=== PATIENT | female | born 1980 | race Hispanic/Latino ===

== ENCOUNTER 2016-04-29 13:38 | Emergency (ER) | payer OTHER ==
[~2016-04-29] VITALS: Ht 152.4 cm; Wt 65.8 kg
[~2016-04-29 13:38] MED LIST: BENTYL10 MG PO; FIORICET 300 MG1 CAP PO; IBUPROFEN800 M1 PO; NAPROXEN500 MG PO; PROAIR HFA8.5 GM INH; ROBITUSSIN W/CO10 ML PO; TESSALON PERLE100 MG PO; ZOFRAN4 M1 SL
--- NOTE | 2016-04-29 14:07 | ED GENERAL ADULT ---
History of Present Illness General Chief Complaint: Neck/Upper Back Pain/Injury Stated Complaint: NECK AND EAR PAIN Source: patient Exam Limitations: no limitations Vital Signs & Intake/Output Vital Signs & Intake/Output Vital Signs Date Time Temp Pulse Resp B/P Pulse O2 O2 Flow FiO2 Ox Delivery Rate 04/29 1736 99.2 80 16 107/55 98 Room Air 04/29 1345 97.7 102 20 127/83 99 Room Air ED Intake and Output 04/30 0000 04/29 1200 Intake Total 0 Output Total Balance 0 Intake, Oral 0 Patient 145 lb Weight Allergies Coded Allergies: Iodinated Contrast Media - Oral and (Severe, ANAPHYLAXIS 04/29/16) iodine (Severe, ANAPHYLAXIS 04/29/16) shellfish derived (Severe, ANAPHYLAXIS 04/29/16) Reconcile Medications Albuterol Sulfate (Albuterol Sulfate Hfa) 0.09 MG/Actuation BHAVESH 2 PUFF INH PRN ASTHMA (Reported) 90 MCG PER PUFF Amoxicillin/Potassium Clav (Augmentin 875-125 Tablet) 875 MG-125 MG TABLET 1 TAB PO BID SINUSITIS Budesonide/Formoterol Fumarate (Symbicort 160-4.5 Mcg Inhaler) 160 MCG-4.5 MCG/ ACTUATION HFA.AER.AD 2 PUF INH BID BREATHING PROBLEMS (Reported) BUTALB/ACETAMINOPHEN/CAFFEINE (Fioricet 50-300-40 MG Capsule) 1 CAP CAP 1 TAB PO TID PRN HEADACHE Cyclobenzaprine HCl 5 MG TABLET 1 TAB PO TID PRN MUSCLE RELAXANT MAY CAUSE DROWSINESS Famotidine 40 MG TABLET 1 TAB PO DAILY GI (Reported) Ibuprofen 800 MG TAB 1 TAB PO PRN PAIN (Reported) Methylprednisolone. (Medrol) 4 MG TAB.DS.PK 1 DP PO AD INFLAMMATION Montelukast Sodium 10 MG TABLET 1 TAB PO DAILY ALLERGIES (Reported) Pantoprazole Sodium 40 MG TABLET.DR 1 TAB PO DAILY GI (Reported) Topiramate 25 MG TABLET 1 TAB PO BID UNKNOWN (Reported) Triage Note: PT TO ED C/O NECK PAIN X 1 WEEK. DENIES INJURY. PT STATES YESTERDAY HER LEFT EAR STARTED TO HURT. UNSURE IF THEY ARE RELATED. HAS BEEN TAKING MOTRIN AND NAPROXEN FOR HER NECK. Triage Nurses Notes Reviewed? yes : No Patient currently breastfeeds: No HPI: Patient is a 36 year old female presents complaining of neck pain, progressively worsening x 6 days. Patient awoke with a sensation of neck stiffness 6 days ago , and a feeling of her head being too heavy for her neck. Using a heating pad, ibuprofen and naproxen. Finds mild 2 hour relief with naproxen. Started kick boxing 2 days ago. Associated nasal congestion with clear rhinorrhea. Left ear pain x 2 days. Left sided migraine, similar to previous headaches, no improvement with her topamax or excedrin. Increased fatigue. Positive sick contact, father with influenza and pneumonia 1.5 weeks ago. Vomiting and diarrhea 2-3 days ago that has resolved. Denies fevers, visual changes, recent travel. (SUBHASH BENJAMIN) Past History Travel History Traveled to [place] past 21 day No Medical History Any Pertinent Medical History? 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 No (SUBHASH BENJAMIN) Review of Systems Review of Systems Constitutional: Denies: chills, fever. EENTM: Reports: ear pain, nasal congestion. Denies: throat pain. Respiratory: Denies: cough, short of breath. Cardiovascular: Denies: chest pain. GI: Denies: abdominal pain, nausea, vomiting. Genitourinary: Reports: no symptoms. Musculoskeletal: Denies: back pain, neck pain. Skin: Reports: no symptoms. Neurological/Psychological: Reports: headache (consistent with previous MOORE). Denies: numbness. Hematologic/Endocrine: Denies: bruising, bleeding. Immunologic/Allergic: Denies: splenectomy. (SUBHASH BENJAMIN) Physical Exam Physical Exam General Appearance: well developed/nourished, alert, awake Head: LEFT MAXILLARY SINUS TENDERNESS Eyes: Bilateral: normal appearance, PERRL, EOMI. Ears, Nose, Throat: nasal congestion, CLEAR FLUID POSTERIOR TO BILATERAL TYMPANIC MEMBRANES. nO ERYTHEMA TO THE TYMPANIC MEMBRANES. eXTERNAL AUDITORY CANALS NORMAL. Neck: normal inspection, supple, full range of motion, LEFT PARASPINAL TENDERNESS. lEFT SUBMANDIBULAR LYMPHADENOPATHY Respiratory: normal breath sounds, chest non-tender, no respiratory distress, lungs clear Cardiovascular: regular rate/rhythm Peripheral Pulses: 2+ radial (L) Gastrointestinal: soft, non-tender Back: normal inspection, normal range of motion, no vertebral tenderness Extremities: normal inspection, normal capillary refill, normal range of motion, no edema Neurologic/Psych: no motor/sensory deficits, awake, alert, oriented x 3, normal gait, normal mood/affect Skin: intact, normal color, warm/dry Core Measures ACS in differential dx? No CVA/TIA Diagnosis: No Severe Sepsis Present: No Septic Shock Present: No (SUBHASH BENJAMIN) Progress Differential Diagnoses I considered the following diagnoses in my evaluation of the patient: Migraine, otitis media, otitis externa, abscess, cervical strain, meningitis, sinusitis Plan of Care: Orders Procedure Date/time Status HUMAN BETA HCG SCREEN 04/29 143 Complete COMPREHENSIVE METABOLIC PANEL 04/29 143 Complete CBC WITHOUT DIFFERENTIAL 04/29 143 Complete Laboratory Tests 04/29/16 1430: Anion Gap 14, Estimated GFR > 60, BUN/Creatinine Ratio 27.1 H, Glucose 98, Calcium 8.8, Total Bilirubin 0.4, AST 12 L, ALT 24, Alkaline Phosphatase 59, Total Protein 7.4, Albumin 3.9, Globulin 3.5, Albumin/Globulin Ratio 1.1, Total Beta HCG NEGATIVE, CBC w Diff MAN DIFF ORDERED, RBC 5.40, MCV 62.7 L, MCH 19.3 L, RDW 20.1 H, MPV 9.5, Gran % 49.3, Lymphocytes % 34.6, Monocytes % 9.4 H, Eosinophils % 5.2 H, Basophils % 1.5, Absolute Granulocytes 4.9, Absolute Lymphocytes 3.4, Absolute Monocytes 0.9 H, Absolute Eosinophils 0.5, Absolute Basophils 0.1, Platelet Estimate ADEQUATE, Hypochromic-Microcytic 2+, Poikilocytosis 2+, Anisocytosis 1+, Microcytic Cells 2+, Ovalocytes 1+, PUBS MCHC 30.8 L Results of labs and imaging discussed with patient. Patient nontoxic appearing, no meningeal signs on exam. Appears stable for discharge, patient instructed to follow up closely with her primary care provider for further evaluation. (SUBHASH BENJAMIN) Diagnostic Imaging: Viewed by Me: CT Scan. Discussed w/RAD: CT Scan. Radiology Impression: PATIENT: PRIYA HERNDON PRESENT AGE: 36 PATIENT ACCOUNT NO: [id number] : 81 LOCATION: [facility] ORDERING PHYSICIAN: SUBHASH HERNANDEZ SERVICE DATE: 04/29/16-1430 EXAM TYPE: CAT - CT NECK W IV CONTRAST EXAMINATION: CT NECK WITH CONTRAST CLINICAL INFORMATION: Left-sided neck pain. Left submandibular adenopathy. COMPARISON: None. TECHNIQUE: Multidetector helical imaging was performed in the axial plane with generation of reformatted acquisitions. The patient received 60 mL of Optiray 320 intravenously. DLP: 540.8 mGy-cm. FINDINGS: No contour abnormality or pathologic enhancement is seen within the pharyngeal mucosal space or oral cavity. The larynx is normal. The submandibular glands and parotid glands are homogeneous in attenuation. No sialoliths are seen. No abnormal periodontal or periapical lucencies are seen in the maxillary or mandibular dentition. There is no cervical adenopathy. No soft tissue fluid collections are seen. There is no abnormal retropharyngeal fluid. The carotid sheath vasculature opacifies normally. A few subcentimeter low density nodules are noted within the thyroid gland, measuring up to 0.4 cm in diameter. The imaged portions of the brain parenchyma are unremarkable. The imaged mediastinum is normal. The visualized lungs are clear. No acute osseous abnormality is seen. Posterior endplate spurring is noted with a small central disc protrusion at C5-C6. There is a moderate rightward nasal septal deviation. The paranasal sinuses and mastoid air cells are aerated. The TMJs are normal. IMPRESSION: No acute abnormality. No soft tissue inflammatory changes or pathologic enhancement. No cervical adenopathy. Scattered small thyroid nodules. Incidental small central disc protrusion with mild endplate spurring at C5-C6. DICTATED BY: JAX ALLEN MD DATE/TIME DICTATED:04/29/161726 MACHINE ACCOUNTANT:REECE DATE/TIME TRANSCRIBED:04/29/161726 CONFIDENTIAL, DO NOT COPY WITHOUT APPROPRIATE AUTHORIZATION. <Electronically signed in Other Vendor System> SIGNED BY: JAX ALLEN MD 04/29/16 1738 Initial ED EKG: none (SUBHASH BENJAMIN) Departure Departure Time of Disposition: 1742 Disposition: HOME OR SELF CARE Condition: Stable Clinical Impression Primary Impression: Sinusitis Qualifiers: Sinusitis location: unspecified location Chronicity: acute Recurrence: not specified as recurrent Qualified Code: J01.90 - Acute sinusitis, unspecified Secondary Impressions: Cervical strain, acute Qualifiers: Encounter type: initial encounter Qualified Code: S16.1XXA - Strain of muscle, fascia and tendon at neck level, initial encounter Referrals: CAROLINE PEREZ,CONSTANCE De Los Santos (PCP/Family) Additional Instructions: Follow-up with your primary doctor within 1 week for further evaluation. Return to the emergency department if numbness, weakness, fevers, or worsening of symptoms. Departure Forms: Customer Survey General Discharge Information Prescriptions: Current Visit Scripts Amoxicillin/Potassium Clav (Augmentin 875-125 Tablet) 1 TAB PO BID #20 TAB Methylprednisolone. (Medrol) 1 DP PO AD #1 DP Cyclobenzaprine HCl 1 TAB PO TID PRN MUSCLE RELAXANT #30 TAB MAY CAUSE DROWSINESS (SUBHASH BENJAMIN) PA/ATM MANAGER Co-Sign Statement Statement: ED Attending supervision documentation- [X] I saw and evaluated the patient. I have also reviewed all the pertinent lab results and diagnostic results. I agree with the findings and the plan of care as documented in the PA's/ATM MANAGER's documentation. [X] I have reviewed the ED Record and agree with the PA's/ATM MANAGER's documentation. [] Additions or exceptions (if any) to the PAs/ATM MANAGER's note and plan are summarized below: [] (ALOK PEREZ,CORRINE) Critical Care Note Critical Care Note Critical Care Time: non-applicable (SUBHASH BENJAMIN)
[2016-04-29] MEDS ORDERED: FAMOTIDINE40 M1 PO (14:45)
[2016-04-29] MEDS ORDERED: PANTOPRAZOLE SO40 M1 PO (14:46)
[2016-04-29] MEDS ORDERED: SYMBICORT 16010.2 GM INH (14:46)
[2016-04-29] MEDS ORDERED: MONTELUKAST SOD10 M1 PO (14:46)
[2016-04-29] MEDS ORDERED: TOPIRAMATE25 M2 PO (14:47)
[2016-04-29 14:51] LABS: ABSOLUTE BASOPHIL COUNT 0.1 /CUMM (0.0-0.2); ABSOLUTE EOSINOPHIL COUNT 0.5 /CUMM (0.0-0.7); ABSOLUTE GRANULOCYTE CT 4.9 /CUMM (1.4-6.5); ABSOLUTE LYMPH COUNT 3.4 /CUMM (1.2-3.4); ABSOLUTE MONOCYTE COUNT 0.9 /CUMM (0.10-0.60); BASOPHIL % 1.5 % (0.0-2.0); EOSINOPHIL % 5.2 % (0-5); GRANULOCYTE % 49.3 % (42.2-75.2); HEMATOCRIT 33.9 % (37-47); MEAN CORPUSCULAR HGB 19.3 PG (27.0-31.0); MEAN CORPUSCULAR HGB CONC 30.8 G/DL (33.0-37.0); MEAN CORPUSCULAR VOLUME 62.7 FL (81.0-99.0); MEAN PLATELET VOLUME 9.5 FL (7.4-10.4); PLATELET COUNT 196 /CUMM (130-400); RBC DISTRIBUTION WIDTH 20.1 % (11.5-14.5); WHITE BLOOD CELL COUNT 9.9 /CUMM (4.8-10.8)
[2016-04-29 17:36] VITALS: BP 107/55
--- NOTE | 2016-04-29 17:38 | CT SCAN REPORT ---
EXAMINATION: CT NECK WITH CONTRAST CLINICAL INFORMATION: Left-sided neck pain. Left submandibular adenopathy. COMPARISON: None. TECHNIQUE: Multidetector helical imaging was performed in the axial plane with generation of reformatted acquisitions. The patient received 60 mL of Optiray 320 intravenously. DLP: 540.8 mGy-cm. FINDINGS: No contour abnormality or pathologic enhancement is seen within the pharyngeal mucosal space or oral cavity. The larynx is normal. The submandibular glands and parotid glands are homogeneous in attenuation. No sialoliths are seen. No abnormal periodontal or periapical lucencies are seen in the maxillary or mandibular dentition. There is no cervical adenopathy. No soft tissue fluid collections are seen. There is no abnormal retropharyngeal fluid. The carotid sheath vasculature opacifies normally. A few subcentimeter low density nodules are noted within the thyroid gland, measuring up to 0.4 cm in diameter. The imaged portions of the brain parenchyma are unremarkable. The imaged mediastinum is normal. The visualized lungs are clear. No acute osseous abnormality is seen. Posterior endplate spurring is noted with a small central disc protrusion at C5-C6. There is a moderate rightward nasal septal deviation. The paranasal sinuses and mastoid air cells are aerated. The TMJs are normal. IMPRESSION: No acute abnormality. No soft tissue inflammatory changes or pathologic enhancement. No cervical adenopathy. Scattered small thyroid nodules. Incidental small central disc protrusion with mild endplate spurring at C5-C6.
[2016-04-29] MEDS ORDERED: CYCLOBENZAPRINE5 M2 PO (17:46)
[2016-04-29] MEDS ORDERED: AUGMENTIN 875-1 EACH PO (17:46)
[2016-04-29] MEDS ORDERED: MEDROL4 M2 PO (17:46)
== END 2016-04-29 18:00 ==
LOC: ERH 13:38
PROVIDERS: Physician Assistant
DX: S16.1XXA Strain of muscle, fascia and tendon at neck level, initial encounter (principal); J32.9 Chronic sinusitis, unspecified
CPT/HCPCS: 96374; J1200

== ENCOUNTER 2016-06-09 17:51 | Emergency (ER) | payer OTHER ==
[~2016-06-09] VITALS: Ht 152.4 cm; Wt 67.1 kg
[~2016-06-09 17:51] MED LIST changes: +AUGMENTIN 875-1 EACH PO; +CYCLOBENZAPRINE5 M2 PO; +FAMOTIDINE40 M1 PO; +MEDROL4 M2 PO; +MONTELUKAST SOD10 M1 PO; +PANTOPRAZOLE SO40 M1 PO; +SYMBICORT 16010.2 GM INH; +TOPIRAMATE25 M2 PO
--- NOTE | 2016-06-09 18:10 | ED DYSPNEA/ASTHMA COMPLAINT ---
History of Present Illness General Chief Complaint: Wheezing/Asthma Stated Complaint: ASTHMA ATTACK, WHEEZING Source: patient, old records Exam Limitations: no limitations Vital Signs & Intake/Output Vital Signs & Intake/Output Vital Signs Date Time Temp Pulse Resp B/P Pulse O2 O2 Flow FiO2 Ox Delivery Rate 06/09 2035 98.0 91 18 127/83 97 Room Air 06/09 1900 97 Room Air Room Air 06/09 1855 97.8 100 20 128/90 96 Room Air 06/09 1756 99.4 120 22 131/87 97 Room Air ED Intake and Output 06/10 0000 06/09 1200 Intake Total 100 Output Total Balance 100 Intake, IV 100 Patient 148 lb Weight Allergies Coded Allergies: Iodinated Contrast Media - Oral and (Severe, ANAPHYLAXIS 04/29/16) iodine (Severe, ANAPHYLAXIS 04/29/16) shellfish derived (Severe, ANAPHYLAXIS 04/29/16) Triage Note: PT TO TRIAGE WITH C/O DIFFICULTY BREATHIG SINCE YESTERDAY. HX OF ASTHMA. PT HAS BEEN USING HER INHALER AND NEBULIZER WITH NO RELIEF. EXP WHEEZING ON AUSCULTATION, O2SAT 97% ON RA. PT AMB TO ROOM 6. Triage Nurses Notes Reviewed? yes Onset: Abrupt Duration: week(s): (1), constant, getting worse Timing: recent history Severity: moderate, severe Activities at Onset: none Prior Episodes/Possible Cause: frequent episodes Modifying Factors: Improves With: rest. Worsens With: movement. Associated Symptoms: cough : No Patient currently breastfeeds: No HPI: 36-year-old female with history of asthma presents to emergency room complaining of a initially nonproductive now productive cough associated with progressively worsening wheezing despite using her nebulizer and inhalers multiple times for other day. Patient recently got over a course of bronchitis and finished prednisone last month. She denies any nausea vomiting fevers or chills. She states that these symptoms that brought her in today having going on for the past week getting progressively worse no chest pain. She states her shortness of breath however is worse with lying flat and exertion. No leg swelling, no recent immobility. She has been admitted to the hospital in the past for her asthma she does not smoke. There are no other modifying factors or associated symptoms otherwise (SANJAY HERNANDEZ,MAHESH) Reconcile Medications Albuterol Sulfate (Proair Hfa) 90 MCG HFA.AER.AD 2 PUF INH PRN ASTHMA ( Reported) Azithromycin (Zithromax) 250 MG TABLET 1 DP PO AD bronchitis 2 the first day followed by 1 for days 2-5 Budesonide/Formoterol Fumarate (Symbicort 160-4.5 Mcg Inhaler) 160 MCG-4.5 MCG/ ACTUATION HFA.AER.AD 2 PUF INH BID BREATHING PROBLEMS (Reported) Butalb/Acetaminophen/Caffeine (Fioricet 50-300-40 MG Capsule) 50 MG-300 MG-40 MG CAPSULE 1 CAP PO PRN MIGRAINE (Reported) Butalb/Acetaminophen/Caffeine (Fioricet 50-300-40 MG Capsule) 50 MG-300 MG-40 MG CAPSULE 1 TAB PO Q6HR PRN HEADACHE Famotidine 40 MG TABLET 1 TAB PO DAILY GI (Reported) Ibuprofen 800 MG TABLET 1 TAB PO PRN PAIN/INFLAMMATION (Reported) Methylprednisolone. (Medrol) 4 MG TAB.DS.PK 1 DP PO AD asthma 6 on day 1 then reduce by one tablet daily until gone Montelukast Sodium 10 MG TABLET 1 TAB PO DAILY ALLERGIES (Reported) Pantoprazole Sodium 40 MG TABLET.DR 1 TAB PO DAILY GI (Reported) Topiramate 25 MG TABLET 1 TAB PO BID UNKNOWN (Reported) (ALOK PEREZ,CORRINE) Past History Travel History Traveled to [place] past 21 day No Medical History Any Pertinent Medical History? 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 No (SANJAY HERNANDEZ,MAHESH) Review of Systems Review of Systems Constitutional: Reports: see HPI. All Other Systems: Reviewed and Negative Comments Review of systems: See HPI, All other systems negative. Constitutional, no chills no fever, no malaise HEENT: No visual changes no sore throat no congestion, no ear pain Cardiovascular: No chest pain , no palpitation , Skin, no rashes, no change in skin Respiratory: dyspnea cough sputum no hemoptysis GI: No nausea no vomiting, no diarrhea, : No dysuria Muscle skeletal: No joint pain, , no back pain, no neck pain, Neurologic: No numbness no headache Psych: No stress Heme/endocrine: No bruising no bleeding Immunology: No lymphadenopathy (MAHESH TAYLOR) Physical Exam Physical Exam General Appearance: well developed/nourished, alert, awake Respiratory: wheezing Comments: Well-developed well-nourished person in no acute distress Head/Face: Atraumatic, no maxillary/frontal sinus tenderness, no facial swelling Eyes: PERRL, EOMI, no conjunctival injection Ear:External auditory canal and Tympanic membranes clear, no erythema, no FB. Nose: atraumatic.Normal inspection: No bleeding Throat: Moist mucous membranes.Pharynx normal. No pharyngeal erythema/exudate seen. No stridor/drooling or assymetry. No swelling or edema. Neck: Supple, no lymphadenopathy, FROM Back: Nontender, no CVA tenderness. Full range of motion Cardiovascular: Regular rate and rhythms no murmurs rubs Respiratory: Chest nontender.There were no bony deformities, no asymmetry. Moderate respiratory distress. Patient speaking in 3-4 word sentences wheezing bilaterally no rales no rhonchi quiet inspiration Abdomen: Soft, nontender nondistended, no appreciable organomegaly. Extremity: No edema, full range of motion of extremities, normal and equal pulses bilaterally, 5 out of 5 strength noted to bilateral upper and lower extremities Neuro: Alert oriented x3, motor sensory normal, cranial nerves II through XII grossly intact. There were no obvious focal neurologic abnormalities. Skin: No appreciable rash on exposed skin, skin is warm and dry. Psych: Mood and affect is normal, memory and judgment is normal. Core Measures ACS in differential dx? Yes Severe Sepsis Present: No Septic Shock Present: No (MAHESH TAYLOR) Progress Differential Diagnosis: asthma, AMI, bronchitis, costochondritis, CHF, COPD, musculoskeletal pain, pericarditis, pulmonary embolism, pneumonia, pneumothorax, unstable angina Plan of Care: Orders Procedure Date/time Status COMPREHENSIVE METABOLIC PANEL 06/09 1808 Complete CBC WITHOUT DIFFERENTIAL 06/09 1808 Complete Laboratory Tests 06/09/16 1849: Anion Gap 13, Estimated GFR > 60, BUN/Creatinine Ratio 22.9, Glucose 111 H, Calcium 9.3, Total Bilirubin 0.3, AST 12 L, ALT 40, Alkaline Phosphatase 61, Total Protein 7.9, Albumin 4.4, Globulin 3.5, Albumin/Globulin Ratio 1.3, CBC w Diff MAN DIFF ORDERED, RBC 5.70 H, MCV 62.9 L, MCH 19.2 L, RDW 20.0 H, MPV 9.6, Gran % 53.6, Lymphocytes % 32.7, Monocytes % 7.5, Eosinophils % 5.8 H, Basophils % 0.4, Absolute Granulocytes 5.1, Absolute Lymphocytes 3.1, Absolute Monocytes 0.7 H, Absolute Eosinophils 0.5, Absolute Basophils 0, Platelet Estimate ADEQUATE, Hypochromic-Microcytic 2+, Poikilocytosis 1+, Anisocytosis 2+ , Microcytic Cells 2+, Target Cells RARE, Stomatocytes RARE, PUBS MCHC 30.5 L DuoNeb ordered labs ordered older concerns or he patient medicated with Solu- Medrol magnesium IV caes d/w dr coy 06/09/2016 7:07:04 PM patient reports much improvement in her symptoms with breathing treatment magnesium is currently running a discussed with her at length her x-ray findings pending labs. We'll continue to monitor 06/09/2016 7:36:27 PM patient resting comfortably at this time and discussed with her all her lab results x-ray findings. We will continue to monitor Patient ambulatory with myself 98-97% on room air feeling well lungs are clear to auscultation. The patient feels comfortable with discharge with close follow -up with her psychologist educational Dr. PAIGE her primary care physician this week. Prescription for Medrol Dosepak azithromycin provided advise close follow-up return anytime sooner for symptoms worsen answered all her questions she feels comfortable with this plan cleared for discharge (SANJAY HERNANDEZ,MAHESH) Diagnostic Imaging: Viewed by Me: Radiology Read. Discussed w/RAD: Radiology Read. Radiology Impression: PATIENT: PRIYA HERNDON PRESENT AGE: 36 PATIENT ACCOUNT NO: [id number] : 81 LOCATION: [facility] ORDERING PHYSICIAN: MHAESH HERNANDEZ SERVICE DATE: 06/09/16 EXAM TYPE: RAD - XRY-PORTABLE CHEST XRAY EXAMINATION: XR PORTABLE CHEST CLINICAL INFORMATION: Cough. Dyspnea. COMPARISON: Chest radiography 11/08/2011. TECHNIQUE : Portable AP view of the chest was obtained. FINDINGS: No new significant abnormality is noted involving the heart, lungs, mediastinum, bony thorax or soft tissues. Tiny radiodensities overlying the left axillary soft tissues may be artifactual in nature; please correlate with clinical exam. IMPRESSION: No evidence of pneumonia. DICTATED BY: JOIE JACKSON MD DATE/TIME DICTATED:1851 SCHOOL COUNSELLOR:REECE DATE/TIME TRANSCRIBED:06/09/161851 CONFIDENTIAL, DO NOT COPY WITHOUT APPROPRIATE AUTHORIZATION. <Electronically signed in Other Vendor System> SIGNED BY: JOIE JACKSON MD 06/09/161855 Initial ED EKG: none (MAHESH TAYLOR) Departure Departure Time of Disposition: 1955 Disposition: HOME OR SELF CARE Condition: Stable Clinical Impression Primary Impression: Asthma exacerbation Referrals: SAROJ PEREZ,THIERRY VELAZQUEZ MD,CONSTANCE De Los Santos (PCP/Family) Additional Instructions: Follow-up with your primary care physician as well as here home in all just on Saturday. Medrol Dosepak Z-Cristobal as directed. Continue using your breathing treatments as discussed return immediately if her symptoms worsen or you have any other concerns These prescriptions were sent to [facility] pharmacy Departure Forms: Customer Survey General Discharge Information (MAHESH TAYLOR) Departure Prescriptions: Current Visit Scripts Methylprednisolone. (Medrol) 1 DP PO AD #1 DP 6 on day 1 then reduce by one tablet daily until gone Azithromycin (Zithromax) 1 DP PO AD #6 TAB 2 the first day followed by 1 for days 2-5 Butalb/Acetaminophen/Caffeine (Fioricet 50-300-40 MG Capsule) 1 TAB PO Q6HR PRN HEADACHE #12 TAB PA/GROCERY CLERK CHECKING Co-Sign Statement Statement: ED Attending supervision documentation- [] I saw and evaluated the patient. I have also reviewed all the pertinent lab results and diagnostic results. I agree with the findings and the plan of care as documented in the PA's/GROCERY CLERK CHECKING's documentation. [X] I have reviewed the ED Record and agree with the PA's/GROCERY CLERK CHECKING's documentation. [] Additions or exceptions (if any) to the PAs/GROCERY CLERK CHECKING's note and plan are summarized below: [] (ALOK PEREZ,CORRINE) Critical Care Note Critical Care Note Critical Care Time: non-applicable (MAHESH TAYLOR)
--- NOTE | 2016-06-09 18:56 | RADIOLOGY REPORT ---
EXAMINATION: XR PORTABLE CHEST CLINICAL INFORMATION: Cough. Dyspnea. COMPARISON: Chest radiography 11/08/2011. TECHNIQUE: Portable AP view of the chest was obtained. FINDINGS: No new significant abnormality is noted involving the heart, lungs, mediastinum, bony thorax or soft tissues. Tiny radiodensities overlying the left axillary soft tissues may be artifactual in nature; please correlate with clinical exam. IMPRESSION: No evidence of pneumonia.
[2016-06-09 19:04] LABS: ABSOLUTE BASOPHIL COUNT 0 /CUMM (0.0-0.2); ABSOLUTE EOSINOPHIL COUNT 0.5 /CUMM (0.0-0.7); ABSOLUTE GRANULOCYTE CT 5.1 /CUMM (1.4-6.5); ABSOLUTE LYMPH COUNT 3.1 /CUMM (1.2-3.4); ABSOLUTE MONOCYTE COUNT 0.7 /CUMM (0.10-0.60); BASOPHIL % 0.4 % (0.0-2.0); EOSINOPHIL % 5.8 % (0-5); GRANULOCYTE % 53.6 % (42.2-75.2); HEMATOCRIT 35.9 % (37-47); MEAN CORPUSCULAR HGB 19.2 PG (27.0-31.0); MEAN CORPUSCULAR HGB CONC 30.5 G/DL (33.0-37.0); MEAN CORPUSCULAR VOLUME 62.9 FL (81.0-99.0); MEAN PLATELET VOLUME 9.6 FL (7.4-10.4); PLATELET COUNT 208 /CUMM (130-400); WHITE BLOOD CELL COUNT 9.4 /CUMM (4.8-10.8)
[2016-06-09] MEDS ORDERED: FIORICET 50-301 EACH PO ×2 (19:29→20:35)
[2016-06-09] MEDS ORDERED: MEDROL4 M2 PO (19:57)
[2016-06-09] MEDS ORDERED: ZITHROMAX250 M2 PO (19:57)
[2016-06-09 20:36] VITALS: BP 127/83
== END 2016-06-09 20:40 ==
LOC: ERH 17:51
PROVIDERS: Physician Assistant Medical
DX: J45.901 Unspecified asthma with (acute) exacerbation (principal)
CPT/HCPCS: 1263; 96374; 96375; J2930

== ENCOUNTER 2016-08-01 16:16 | Emergency (ER) | payer OTHER ==
[~2016-08-01] VITALS: Ht 152.4 cm; Wt 68.0 kg
[~2016-08-01 16:16] MED LIST changes: +FIORICET 50-301 EACH PO; +ZITHROMAX250 M2 PO
[2016-08-01 16:51] VITALS: BP 122/85
--- NOTE | 2016-08-01 17:04 | ED UPPER/LOWER EXTREMITY COMPL ---
History of Present Illness General Chief Complaint: Lower Extremity Problems Stated Complaint: ELBOW PAIN Source: patient, old records Exam Limitations: no limitations Vital Signs & Intake/Output Vital Signs & Intake/Output Vital Signs Date Time Temp Pulse Resp B/P Pulse O2 O2 Flow FiO2 Ox Delivery Rate 08/01 1651 98.3 102 18 122/85 99 Room Air Allergies Coded Allergies: Iodinated Contrast Media - Oral and (Severe, ANAPHYLAXIS 04/29/16) iodine (Severe, ANAPHYLAXIS 04/29/16) shellfish derived (Severe, ANAPHYLAXIS 04/29/16) Reconcile Medications Albuterol Sulfate (Proair Hfa) 90 MCG HFA.AER.AD 2 PUF INH PRN ASTHMA ( Reported) Amoxicillin/Potassium Clav (Augmentin 875-125 Tablet) 875 MG-125 MG TABLET 1 TAB PO BID otitis Azithromycin (Zithromax) 250 MG TABLET 1 DP PO AD bronchitis 2 the first day followed by 1 for days 2-5 Budesonide/Formoterol Fumarate (Symbicort 160-4.5 Mcg Inhaler) 160 MCG-4.5 MCG/ ACTUATION HFA.AER.AD 2 PUF INH BID BREATHING PROBLEMS (Reported) Butalb/Acetaminophen/Caffeine (Fioricet 50-300-40 MG Capsule) 50 MG-300 MG-40 MG CAPSULE 1 CAP PO PRN MIGRAINE (Reported) Butalb/Acetaminophen/Caffeine (Fioricet 50-300-40 MG Capsule) 50 MG-300 MG-40 MG CAPSULE 1 TAB PO Q6HR PRN HEADACHE Famotidine 40 MG TABLET 1 TAB PO DAILY GI (Reported) Ibuprofen 800 MG TABLET 1 TAB PO PRN PAIN/INFLAMMATION (Reported) Methylprednisolone. (Medrol) 4 MG TAB.DS.PK 1 DP PO AD asthma 6 on day 1 then reduce by one tablet daily until gone Montelukast Sodium 10 MG TABLET 1 TAB PO DAILY ALLERGIES (Reported) Pantoprazole Sodium 40 MG TABLET.DR 1 TAB PO DAILY GI (Reported) Topiramate 25 MG TABLET 1 TAB PO BID UNKNOWN (Reported) Tramadol HCl 50 MG TABLET 1 TAB PO BIDP PRN pain Triage Note: RECEIVED 36 YO FEMALE C/O RIGHT ELBOW AREA PAIN X 2 TO 3 WEEKS. PT REPORTS WHEN SH PICKS SOMETHING UP, HER R ELBOW AND RIGHT INNER LOWER ARM HURTS. SEEN FAST TRACK 07/29/16. PRESCRIBED PREDNISONE, AND WRIST SPLINT. NO XRAYS DONE Triage Nurses Notes Reviewed? yes Onset: Gradual Duration: week(s): (2-3), intermittent Timing: recent history Severity: moderate Severity Numbers: 6 Pain/Injury Location: Right: Wrist. Method of Injury: unknown No Modifying Factors: none Associated Symptoms: none : No Patient currently breastfeeds: No HPI: 36 year old female with no medical history presents emergency room complaining of a 2-3 week history of right elbow pain medial aspect radiating down her forearm associated with paresthesia tingling to her right wrist and hand. The patient states that she's had decreased sap bpc developer strength to the hand secondary to her symptoms. She went to urgent care 4 days ago and prescribed naproxen and prednisone as well as a wrist splint but she's been using without improvement. She denies any known injury or trauma. She is right-hand dominant. She denies any swelling to her arm chest pain shortness of breath. She denies any other joint or extremity pain no modifying factors there is no other associated symptoms otherwise. Past History Travel History Traveled to [place] past 21 day No Medical History Any Pertinent Medical History? 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 No Review of Systems Review of Systems Constitutional: Reports: see HPI. All Other Systems: Reviewed and Negative Comments Review of systems: See HPI, All other systems negative. Constitutional, no chills no fever, no malaise HEENT: no sore throat no congestion Cardiovascular: No chest pain , no palpitation , Skin, no jaundice no rashes, no change in skin Respiratory: No dyspnea no cough no sputum GI: No nausea no vomiting, no diarrhea, no bloating/constipation : No dysuria Muscle skeletal: joint pain, no joint swelling, no back pain, no neck pain, Neurologic: No numbness, no headache Psych: No stress Heme/endocrine: No bruising no bleeding Immunology: No lymphadenopathy Physical Exam Physical Exam General Appearance: well developed/nourished, no apparent distress, alert, awake Comments: Well-developed well-nourished patient in no apparent distress. Head/Face: Atraumatic, no maxillary/frontal sinus tenderness, no facial swelling Eyes: PERRL, EOMI, no conjunctival injection Ear: Left TM is bulging and erythematous, the External auditory canal and right Tympanic membrane clear, no erythema, no FB. Nose: atraumatic.Normal inspection: No bleeding, no septal hematoma Throat: Moist mucous membranes.Pharynx normal. No pharyngeal erythema/exudate seen. No stridor/drooling or assymetry. No swelling or edema. Neck: Supple, no lymphadenopathy, FROM Back: FROM Cardiovascular: Regular rate and rhythms no murmurs Respiratory: No respiratory distress. Patient speaking in full complete sentences. Breath sounds clear to auscultation bilaterally: NO W/R/R Shoulder: Atraumatic/Stable. FROM . Elbow: Atraumatic/stable. FROM. No laxity Upper arm/Forearm: Atraumatic. Nontender. No edema, 5 out of 5 sap bpc developer strength noted to bilateral upper extremities Hand/Wrist: (+) PHALENS, NORMAL SENATION TO DISTAL B/L UE, Atraumatic/stable. Skin intact. FROM, NO SWELLING Pulses: Normal/equal radial pulses bilaterally. Brisk cap refill Lower Extremities: full range of motion Neuro: Alert and oriented x3 Skin: Warm & dry;No appreciable rash on exposed skin Psych: Mood affect normal, normal memory normal judgment. Progress Differential Diagnosis: compartment syndrome, contusion, dislocation, DVT, gout, sprain, tendon injury, epicondylitis, NERVE IMPINGEMENT Plan of Care: There's been no recent trauma or injury but discussed with patient I do not believe radiology is warranted at this time advised to continue the prednisone which she is only been on for the past 2 days need to wear brace at all times prescription for tramadol provided. They feel comfortable with plan cleared for discharge Departure Departure Time of Disposition: 1731 Disposition: HOME OR SELF CARE Condition: Stable Clinical Impression Primary Impression: Ulnar nerve impingement Secondary Impressions: Otitis media Referrals: CAROLINE PEREZ,CONSTANCE De Los Santos (PCP/Family) Additional Instructions: Tramadol for pain use cautious this may make you drowsy. Ibuprofen every 8 hours as needed. Augmentin as discussed these prescriptions were sent to [facility]. continue wearing the brace. follow up with [facility] dr cox. Departure Forms: Customer Survey General Discharge Information Prescriptions: Current Visit Scripts Tramadol HCl 1 TAB PO BIDP PRN pain #10 TAB Amoxicillin/Potassium Clav (Augmentin 875-125 Tablet) 1 TAB PO BID #14 TAB
[2016-08-01] MEDS ORDERED: TRAMADOL HCL50 M1 PO (17:35)
[2016-08-01] MEDS ORDERED: AUGMENTIN 875-1 EACH PO (17:35)
== END 2016-08-01 17:40 ==
LOC: ERH 16:16
DX: G56.21 Lesion of ulnar nerve, right upper limb (principal); H66.91 Otitis media, unspecified, right ear

== ENCOUNTER 2016-09-08 20:55 | Emergency (ER) | payer OTHER ==
[~2016-09-08 20:55] MED LIST changes: +TRAMADOL HCL50 M1 PO
--- NOTE | 2016-09-08 21:55 | ED GENERAL ADULT ---
History of Present Illness General Chief Complaint: Dyspnea (COPD, CHF, Other) Stated Complaint: BIBA, SOB Source: patient, EMS Exam Limitations: no limitations Vital Signs & Intake/Output Vital Signs & Intake/Output Vital Signs Date Time Temp Pulse Resp B/P B/P Pulse O2 O2 Flow FiO2 Mean Ox Delivery Rate 09/08 2104 97.3 115 22 118/59 96 Room Air Allergies Coded Allergies: Iodinated Contrast Media - Oral and (Severe, ANAPHYLAXIS 04/29/16) iodine (Severe, ANAPHYLAXIS 04/29/16) shellfish derived (Severe, ANAPHYLAXIS 04/29/16) Reconcile Medications Albuterol Sulfate (Proair Hfa) 90 MCG HFA.AER.AD 2 PUF INH PRN ASTHMA ( Reported) Amoxicillin/Potassium Clav (Augmentin 875-125 Tablet) 875 MG-125 MG TABLET 1 TAB PO BID otitis Azithromycin (Zithromax) 250 MG TABLET 1 DP PO AD bronchitis 2 the first day followed by 1 for days 2-5 Budesonide/Formoterol Fumarate (Symbicort 160-4.5 Mcg Inhaler) 160 MCG-4.5 MCG/ ACTUATION HFA.AER.AD 2 PUF INH BID BREATHING PROBLEMS (Reported) Butalb/Acetaminophen/Caffeine (Fioricet 50-300-40 MG Capsule) 50 MG-300 MG-40 MG CAPSULE 1 CAP PO PRN MIGRAINE (Reported) Butalb/Acetaminophen/Caffeine (Fioricet 50-300-40 MG Capsule) 50 MG-300 MG-40 MG CAPSULE 1 TAB PO Q6HR PRN HEADACHE Famotidine 40 MG TABLET 1 TAB PO DAILY GI (Reported) Ibuprofen 800 MG TABLET 1 TAB PO PRN PAIN/INFLAMMATION (Reported) Methylprednisolone. (Medrol) 4 MG TAB.DS.PK 1 DP PO AD asthma 6 on day 1 then reduce by one tablet daily until gone Montelukast Sodium 10 MG TABLET 1 TAB PO DAILY ALLERGIES (Reported) Pantoprazole Sodium 40 MG TABLET.DR 1 TAB PO DAILY GI (Reported) Topiramate 25 MG TABLET 1 TAB PO BID UNKNOWN (Reported) Tramadol HCl 50 MG TABLET 1 TAB PO BIDP PRN pain Triage Note: PT BIBA FROM HOME AFTER HAVING AN ALLERGIC REACTION AFTER WASHING HER DOG. PT REPORTS BECOMING SOB AND GETTING HIVES ON HER FACE. SHE REPORTS TAKING 50 MG BENADRYL AND USING HER INHALER WITH NO RELIEF. PER EMS UPON ARRIVAL PT STILL HAD HIVES ON FACE, WAS SOB AND HAD EXP WHEEZES. PT WAS GIVEN 50 MG BENADRYAL IV AND BREATHING TREATMENT. PT REPORTS FEELING BETTER AFTER BREATHING TREATMENT. NO HIVES NOTED. LUNGS CLEAR. Triage Nurses Notes Reviewed? 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 Pt states she only has allergic reaction to her dog when the dog is wet. After bathing her dog noticed facial hives and SOB. Denies CP, dysphagia, angioedema, oral paresthesias, N/V, abd pain, or light headedness. Took 50mg po benadryl and 2 puffs albuterol inhaler without improvement. On EMS arrival was given 50mg IV benadryl and albuterol neb with complete resolution of symptoms. Pt is asymptomatic on ED arrival. Reports that she does have an EPI pen at home, but didn't feel sick enough to use it. Past History Travel History Traveled to [place] past 21 day No Medical History Any Pertinent Medical History? 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 No Review of Systems Review of Systems Constitutional: Reports: no symptoms. Respiratory: Reports: short of breath, wheezing. Denies: cough. Cardiovascular: Denies: chest pain, palpitations, syncope. GI: Denies: abdominal pain, diarrhea, nausea, vomiting. Genitourinary: Reports: no symptoms. Musculoskeletal: Reports: no symptoms. Skin: Reports: rash. Neurological/Psychological: Denies: headache, numbness, paresthesia, tingling, weakness. Physical Exam Physical Exam General Appearance: well developed/nourished, no apparent distress, comfortable Head: atraumatic Ears, Nose, Throat: normal ENT inspection, no OP edema or angioedema Respiratory: normal breath sounds, no respiratory distress, lungs clear Cardiovascular: regular rate/rhythm, normal peripheral pulses Gastrointestinal: normal bowel sounds, soft, non-tender Neurologic/Psych: awake, alert, oriented x 3, normal gait Skin: intact, normal color, warm/dry, no urticaria on exam Core Measures ACS in differential dx? No CVA/TIA Diagnosis: No Severe Sepsis Present: No Septic Shock Present: No Progress Differential Diagnoses I considered the following diagnoses in my evaluation of the patient: [urticaria vs anaphylaxis vs viral exanthem vs contact dermatitis ] Plan of Care: Current Medications Sig/Radha Start time Last Medication Dose Stop Time Status Admin Famotidine 20 MG ONCE ONE 09/08 2199 UNVr (Pepcid) 09/08 2200 Methylprednisolone 125 MG ONCE ONE 09/08 2199 UNVr (Solu Medrol) 09/08 2200 Pt with no signs of anaphylaxis. Pt has remained asymptomatic in the ED. Given pepcid and solumedrol in ED to prevent rebound reaction. Will f/u with PMD for re-evaluation. (BRICE LINCOLN,STEPHANY) Initial ED EKG: none Departure Departure Disposition: HOME OR SELF CARE Condition: Stable Clinical Impression Primary Impression: Allergic reaction Referrals: CAROLINE PEREZ,CONSTANCE De Los Santos (PCP/Family) Additional Instructions: Follow-up with the primary care provider for reevaluation in the next 24 hours. Return to the ED for any new or worsening symptoms. Departure Forms: Customer Survey General Discharge Information Critical Care Note Critical Care Note Critical Care Time: non-applicable
[2016-09-08 21:56] VITALS: BP 115/62
== END 2016-09-08 22:09 ==
LOC: ERH 20:55
DX: T78.40XA Allergy, unspecified, initial encounter (principal)
CPT/HCPCS: 96374; 96375; J2930

== ENCOUNTER 2016-11-13 14:21 | Inpatient (IN) | payer OTHER ==
[~2016-11-13] VITALS: Ht 152.4 cm; Wt 68.9 kg
--- NOTE | 2016-11-13 14:29 | NUR ---
36 Y/O FEMALE C/O L SIDED CHEST PAIN AND L SIDED UPPER BACK PAIN SINCE YESTERDAY. STATES "THE PAIN STOPS ME IN MY TRACKS". PT STATES SHE RECENTLY FINISHED Z-PACK FOR VIRAL SYMPTOMS AND WAS FEELING OK UNTIL THIS PAIN STARTED. SENT TO ED BY [facility] ([facility]FF) FOR EKG/EVAL.
--- NOTE | 2016-11-13 14:34 | NUR ---
PT AMB TO ROOM 2, CHANGED INTO GOWN. PLACED ON MONITOR, AWAITING EVAL. Informed waiting has been performed.
--- NOTE | 2016-11-13 14:39 | NUR ---
PT NOTED DRINKING [employer] DRINK, ADVISED TO REMAIN NPO AT THIS TIME.
--- NOTE | 2016-11-13 15:00 | ED CARDIAC/CP/PALPITATIONS ---
History of Present Illness General Chief Complaint: Chest Pain Stated Complaint: SIB WALK IN FOR CHEST PAIN Source: patient Exam Limitations: no limitations Vital Signs & Intake/Output Vital Signs & Intake/Output Vital Signs Date Time Temp Pulse Resp B/P B/P Pulse O2 O2 Flow FiO2 Mean Ox Delivery Rate 11/13 1746 132/86 11/13 1735 84 133/90 11/13 1705 97.0 89 18 108/64 97 Room Air 11/13 1427 97.8 100 16 139/84 99 Room Air Allergies Coded Allergies: Iodinated Contrast- Oral and IV Dye (IODINATED CONTRAST MEDIA - ORAL AND) ( Severe, ANAPHYLAXIS 04/29/16) iodine (Severe, ANAPHYLAXIS 04/29/16) shellfish derived (Severe, ANAPHYLAXIS 04/29/16) Reconcile Medications Albuterol Sulfate (Proair Hfa) 90 MCG HFA.AER.AD 2 PUF INH PRN ASTHMA ( Reported) Budesonide/Formoterol Fumarate (Symbicort 160-4.5 Mcg Inhaler) 160 MCG-4.5 MCG/ ACTUATION HFA.AER.AD 2 PUF INH BID BREATHING PROBLEMS (Reported) Butalb/Acetaminophen/Caffeine (Fioricet 50-300-40 MG Capsule) 50 MG-300 MG-40 MG CAPSULE 1 CAP PO PRN MIGRAINE (Reported) Ergocalciferol (Vitamin D2) (Vitamin D2) 50,000 UNIT CAPSULE 1 CAP PO QFRI SUPPLEMENT (Reported) Famotidine 40 MG TABLET 1 TAB PO DAILY GI (Reported) Ibuprofen 800 MG TABLET 1 TAB PO PRN PAIN/INFLAMMATION (Reported) Montelukast Sodium 10 MG TABLET 1 TAB PO DAILY ALLERGIES (Reported) Topiramate 25 MG TABLET 1 TAB PO BID MIGRAINES (Reported) Triage Note: 36 Y/O FEMALE C/O L SIDED CHEST PAIN AND L SIDED UPPER BACK PAIN SINCE YESTERDAY. STATES "THE PAIN STOPS ME IN MY TRACKS". PT STATES SHE RECENTLY FINISHED Z-PACK FOR VIRAL SYMPTOMS AND WAS FEELING OK UNTIL THIS PAIN STARTED. SENT TO ED BY [facility] ([facility]) FOR EKG/EVAL. Triage Nurses Notes Reviewed? yes Onset: Abrupt Duration: day(s): (2-3), changing over time, continues in ED, getting worse Timing: single episode today Quality/Severity: moderate, pressure, sharp Location: left chest Radiation: shoulders (left), arms (left), back Activities at Onset: none Prior Chest Pain/Card Workup: no prior chest pain, no prior cardiac workup Modifying Factors: Worsens With: exercise, movement. Nitro Today/Relief: no nitro taken today Aspirin Today: no aspirin today LMP (ages 10-50): unknown : No Patient currently breastfeeds: No HPI: 36-year-old female with past medical history of asthma presents complaining of chest pain. Patient states that about one week ago she developed cough, sinus pressure and congestion and subjective fever. She was treated with a Z-Cristobal and her symptoms were starting to go away until she developed chest pain 2 or 3 days ago. Patient states that pain is located on the left side of her chest and radiates into her left shoulder and left side of her back. Additionally she reports numbness and tingling in the left arm associated with the pain. She describes the pain as a pressure like someone is sitting on her chest that is intermittently sharp. She's been trying to take ibuprofen and naproxen without any improvement. Worse with any type of movement or exertion and improves with rest. She denies any previous history of chest pain. She does have asthma but feels this is different. She denies any shortness of breath. No nausea no vomiting no sweats no chills, recent trauma, recent surgery, lower extremity edema, recent travel, history of blood clots, estrogen use or any other associated symptoms. (KIMBERLY CARMICHAEL PA-C) Past History Travel History Traveled to [place] past 21 day No Medical History Any Pertinent Medical History? see below for history Neurological: MIGRAINES EENT: NONE Cardiovascular: NONE Respiratory: asthma Gastrointestinal: NONE Hepatic: NONE Renal: NONE Musculoskeletal: NONE Psychiatric: NONE Endocrine: NONE Cancer(s): NONE REIMBURSEMENT REPRESENTATIVE/Reproductive: NONE Surgical History Surgical History: cholecystectomy, tubal ligation Psychosocial History Who do you live with Patient and family Services at Home NONE What is your primary language Uruguayan Tobacco Use: Never used Family History Hx Contributory? No (KIMBERLY CARMIHCAEL PA-C) Review of Systems Review of Systems Constitutional: Reports: no symptoms. EENTM: Reports: no symptoms. Respiratory: Reports: no symptoms. Cardiovascular: Reports: see HPI, chest pain. GI: Reports: no symptoms. Genitourinary: Reports: no symptoms. Musculoskeletal: Reports: no symptoms. Skin: Reports: no symptoms. Neurological/Psychological: Reports: no symptoms. Hematologic/Endocrine: Reports: no symptoms. Immunologic/Allergic: Reports: no symptoms. All Other Systems: Reviewed and Negative (JANY LINCOLN,KIMBERLY) Physical Exam Physical Exam Cardiovascular: regular rate/rhythm, normal peripheral pulses Rectal: normal exam, normal rectal tone, heme negative stool Comments: General: Hemodynamically stable. Afebrile. Well-developed well-nourished person in no acute distress. Head: Atraumatic, normocephalic Eyes: EOMI bilaterally, PERRLA, conjunctiva are not injected, no discharge, no nystagmus, fundus grossly normal bilaterally Nose: Atraumatic, no rhinorrhea, mucosa is not erythematous, no epistaxis. Sinuses are non-tender Ears: TM pearly ramesh color bilaterally, external canal is clear, no discharge, hearing is normal Mouth: Appropriate dentition, no gingival bleeding, moist mucus membranes, no oral lesions, tonsils not erythematous or enlarged and free of exudate. Uvula rises midline. Neck: Supple, full active ROM, no lymphadenopathy, no midline tenderness to palpation, no thyromegaly, no tracheal deviation. Back: Non-tender, full active ROM, no scoliosis, no CVA tenderness Cardiovascular: regular rate and rhythm, no murmurs, rubs, or gallops. No JVD Respiratory: Chest is nontender. Regular respiratory rate and effort. No accessory muscle use. Lungs clear to auscultation bilaterally. Abdomen: Soft, non-tender, non-distended, no organomegaly. No rebound tenderness or guarding. Normoactive bowel sounds. Extremities: No edema. No gross deformities. No joint swelling. No calf swelling or tenderness. Full active and passive ROM. Strength 5/5 in upper and lower extremities. Peripheral pulses 2+ bilaterally, Patellar DTR 2+ Neuro: No confusion. Motor and sensory function is intact. Appropriate gait. Cerebellar function intact. Skin: Warm and dry. Appropriate turgor. No lesions or bruising. No appreciable rash on exposed skin. Core Measures ACS in differential dx? Yes ASA ordered for poss ACS? Yes-ordered Severe Sepsis Present: No Septic Shock Present: No (JANY LINCOLN,KIMBERLY) Progress Differential Diagnosis: AMI, aortic dissection, CHF/pulm edema, musculoskeletal pain, pneumonia, pneumothorax, pulmonary embolism, PUD/GERD, unstable angina, V- fib/V-Tach Initial ED EKG: SINUS RHYTHM, BORDERLINE T WAVE ABN ANT-LAT LEADS (BLACK PA-C,KIMBERLY) Plan of Care: Orders Procedure Date/time Status Regular Diet 11/13 D Active TROPONIN LEVEL 11/13 1930 Active EKG 11/13 1930 Active Patient Data 11/13 1752 Active OXYGEN SETUP (GEN) 11/13 174 Active Saline Lock 11/13 174 Active Admit to inpatient 11/13 1740 Active Vital Signs 11/13 1740 Active Activity/Ambulation 11/13 1740 Active Code Status 11/13 1740 Active Add-on Test (ER Only) 11/13 1725 Active Intake & Output 11/13 1552 Active PARTIAL THROMBOPLASTIN TIME 11/13 1540 Complete PROTHROMBIN TIME 11/13 1540 Complete URINE 11/13 1530 Complete URINALYSIS 11/13 1530 Complete TROPONIN LEVEL 11/13 1530 Complete D-DIMER 11/13 1530 Complete COMPREHENSIVE METABOLIC PANEL 11/13 1530 Complete CBC WITHOUT DIFFERENTIAL 11/13 1530 Complete EKG 11/13 1422 Active Current Medications Sig/Radha Start time Last Medication Dose Stop Time Status Admin Heparin Sodium 25,000 UNIT Q24H 11/13 1800 AC 11/13 (Porcine) 1823 (Heparin) Sodium Chloride 500 ML Pantoprazole Sodium 40 MG ONCE ONE 11/13 1730 CAN (Protonix) 11/13 1731 Laboratory Tests 11/13/16 1540: Anion Gap 10, Estimated GFR > 60, BUN/Creatinine Ratio 21.3, Glucose 80, Calcium 9.0, Total Bilirubin 0.5, AST 13 L, ALT 40, Alkaline Phosphatase 53, Troponin I < 0.01, Total Protein 7.3, Albumin 4.1, Globulin 3.2, Albumin/Globulin Ratio 1.3 , PT 13.6 H, INR 1.30 H, APTT 28, D-Dimer High Sensitivty < 200, CBC w Diff NO MAN DIFF REQ, RBC 5.65 H, MCV 60.8 L, MCH 18.7 L, RDW 20.5 H, MPV 9.4, Gran % 56.9, Lymphocytes % 29.9, Monocytes % 8.5, Eosinophils % 4.3, Basophils % 0.4, Absolute Granulocytes 5.0, Absolute Lymphocytes 2.6, Absolute Monocytes 0.7 H, Absolute Eosinophils 0.4, Absolute Basophils 0, PUBS MCHC 30.7 L, Urine Color YEL, Urine Clarity CLEAR, Urine pH 7.0, Ur Specific [place] 1.015, Urine Protein TRACE H, Urine Ketones NEG, Urine Nitrite NEG, Urine Bilirubin NEG, Urine Urobilinogen 0.2, Ur Leukocyte Esterase NEG, Ur Microscopic SEDIMENT EXAMINED, Urine RBC FEW H, Urine WBC RARE, Ur Epithelial Cells MOD H, Urine Mucus MANY H, Urine Hemoglobin NEG, Urine Glucose NEG, Urine Test NEGATIVE Patient seen and evaluated. She will require evaluation to rule out chest pain of cardiac origin. She'll have an EKG chest x-ray basic blood work. She'll be given Tylenol 3 for pain. PT is now reporting acid reflux like symptoms including burning in her chest. She'll be given a GI cocktail. 5:26 PM: Patient is feeling better after receiving GI cocktail but is still reporting chest pressure. Call Dr. Winter and discussed the situation. Patient is having symptoms that are consistent with acute coronary syndrome. She has chest pain that radiates the left shoulder and down the left arm. It is described as pressure and worse with exertion. Improves with rest. Patient's workup thus far has been negative for any objective findings of acute coronary syndrome. However because of the story Dr. Winter feels patient should be admitted to rule out acute coronary syndrome. He recommended starting heparin drip, aspirin and Plavix. Patient will also be given nitroglycerin sublingually as she is still having active chest pain. Dr. Winter will consult on the patient when she is admitted. Hospitalist paged. 5:45 PM: Patient was given 1 sublingual nitroglycerin. Before she was given a nitroglycerin she reported pain 6 out of 10. She states that after receiving nitroglycerin pain is down to a 4 out of 10 and she feels less pressure and less tight. Her blood pressure did not drop. Patient will be given another nitroglycerin. Patient will also be covered with Pepcid as she was reporting some acid reflux symptoms earlier. ptt, pt/inr ordered. Heparin bolus and drip ordered. Patient will be admitted spoke with Dr. Martin. (JANY LINCOLN,KIMBERLY) Departure Departure Disposition: STILL A PATIENT Condition: Stable Clinical Impression Primary Impression: Chest pain Qualifiers: Chest pain type: unspecified Qualified Code: R07.9 - Chest pain, unspecified Referrals: CAROLINE PEREZ,CONSTANCE De Los Santos (PCP/Family) Departure Forms: Customer Survey General Discharge Information Admission Note Spoke With: ARLIN MARTIN MD Documentation of Exam: Documentation of any treatments & extenuating circumstances including Concerns Regarding Discharge (functional status, medication knowledge or non-compliance, living conditions, etc.) that warrant an admission rather than observation: [ Serial labs, cardiology consult, monitoring of vital signs, IV heparin, echocardiogram, stress test, telemetry monitoring] (KIMBERLY CARMICHAEL PA-C) PA/MANAGER SUPPLIER Co-Sign Statement Statement: ED Attending supervision documentation- x I saw and evaluated the patient. I have also reviewed all the pertinent lab results and diagnostic results. I agree with the findings and the plan of care as documented in the PA's/MANAGER SUPPLIER's documentation. [] I have reviewed the ED Record and agree with the PA's/MANAGER SUPPLIER's documentation. [] Additions or exceptions (if any) to the PAs/MANAGER SUPPLIER's note and plan are summarized below: [] (SOTO PEREZ,BERNARDINO) Critical Care Note Critical Care Note Critical Care Time: non-applicable (KIMBERLY CARMICHAEL PA-C)
--- NOTE | 2016-11-13 15:01 | NUR ---
ASSUMED CARE OF PT
[2016-11-13] MEDS ORDERED: VITAMIN D250000 UNIT PO (15:02)
--- NOTE | 2016-11-13 15:40 | NUR ---
SEEN BY PA. UP TO RESTROOM TO PROVIDE URINE SPECIMEN
--- NOTE | 2016-11-13 15:42 | NUR ---
LABS SENT (BLUE,SST,LAV,GARCIA) URINE TRIO SENT
[2016-11-13 15:54] LABS: ABSOLUTE BASOPHIL COUNT 0 /CUMM (0.0-0.2); ABSOLUTE EOSINOPHIL COUNT 0.4 /CUMM (0.0-0.7); ABSOLUTE LYMPH COUNT 2.6 /CUMM (1.2-3.4); ABSOLUTE MONOCYTE COUNT 0.7 /CUMM (0.10-0.60); BASOPHIL % 0.4 % (0.0-2.0); EOSINOPHIL % 4.3 % (0-5); GRANULOCYTE % 56.9 % (42.2-75.2); HEMATOCRIT 34.3 % (37-47); MEAN CORPUSCULAR HGB 18.7 PG (27.0-31.0); MEAN CORPUSCULAR HGB CONC 30.7 G/DL (33.0-37.0); MEAN CORPUSCULAR VOLUME 60.8 FL (81.0-99.0); PLATELET COUNT 242 /CUMM (130-400); RBC DISTRIBUTION WIDTH 20.5 % (11.5-14.5); RED BLOOD CELL CT 5.65 /CUMM (4.20-5.40); WHITE BLOOD CELL COUNT 8.8 /CUMM (4.8-10.8)
--- NOTE | 2016-11-13 16:04 | NUR ---
PT TAKEN TO RADIOLOGY
[2016-11-13 16:17] LABS: MEAN PLATELET VOLUME 9.4 FL (7.4-10.4)
--- NOTE | 2016-11-13 16:19 | RADIOLOGY REPORT ---
EXAMINATION: XR CHEST CLINICAL INFORMATION: Chest pain radiating to left side of chest COMPARISON: Chest x-ray 06/09/2016 TECHNIQUE: 2 views of the chest were obtained. FINDINGS: Lungs are clear. No pulmonary vascular congestion. No infiltrate or pleural effusion. The heart size is normal. The cardiac and mediastinal contours are normal. There are multilevel degenerative changes of dorsal spine. IMPRESSION: Unremarkable examination.
--- NOTE | 2016-11-13 16:49 | NUR ---
MEDICATED WITH GI COCKTAIL AND TYLENOL WITH EDUAR
--- NOTE | 2016-11-13 17:05 | NUR ---
FEELS BETTER AFTER GI COCKTAIL
--- NOTE | 2016-11-13 17:21 | NUR ---
PT CONTINUES TO HAVE CHEST PRESSURE BUT RELIEF OF REFLUX AFTER GI COCKTAIL PT SEEN BY DAVID CARMICHAEL. PT INFORMED OF PLAN TO ADMIT TO HOSP FOR ACS, TO BE STARTED ON NTG AND HEPARIN GTT. IV STARTED
--- NOTE | 2016-11-13 17:35 | NUR ---
PT RATES CHEST PRESSURE A [id number] WITH ASPIRIN AND PLAVIX AND ONE SL NTG.
--- NOTE | 2016-11-13 17:42 | NUR ---
PER LAB, NEED BLUE TOP SENT
--- NOTE | 2016-11-13 17:45 | NUR ---
RECTAL EXAM PERFOMRMED BY DAVID CARMICHAEL. PER JANY, NEGATIVE FOR OCCULT BLOOD
--- NOTE | 2016-11-13 17:45 | NUR ---
PT STATES CHEST PRESSURE DOWN TO 4 AFTER NTG. STATES IT FEELS A LITTLE EASIER TO BREATHE
[2016-11-13 17:56] LABS: PT 13.6 SEC (9.4-12.5); PTT 28 SEC (25-37)
--- NOTE | 2016-11-13 18:06 | NUR ---
PT GIVEN SECOND SL NTG WITH RELIEF OF CHEST PAIN. DR HU AND HOUSE STAFF IN TO SEE PT
--- NOTE | 2016-11-13 18:23 | History & Physical ---
CHRISTOPHER NAVARRO 11/13/16 1822: General Information and HPI History of Present Illness: Ms. aLmar is a 36 yo F with a PMH significant for asthma, migraines on Fioricet and Topiramate, GERD on famotidine, chronic anemia presented to the ED with L sided substernal chest pressure at rest and on exertion, relieved with nitroglycerin, radiated to the L scapula and L arm, associated with L arm numbness and weakness since yesterday. She also felt nauseated which she attributes to a viral infection in which she completed a course of antibiotics. She stated she also felt ARREGUIN while playing with her baby but denies diaphoresis, blurry vision, dizziness, vomiting, abdominal pain, urinary or bowel symptoms or leg swelling. She denies any previous episode of CP and stated that it felt different from her acid reflux. She had an ECHO was done in 06/2012 because she complained of CP and SOB at 24 weeks gestation reported EF 70%, mild regurgitation, trace TR. She has a history of anemia for the last 4 years, around the time she began having children but she said she has not been taking her iron supplements, she always feel fatigued and crave ice chips. Her FH is relevant for her dad who is a diabetic who had an NJ at the age of 55 s/p 4 stent placements ED: Vitals- BP 139/84 HR 100 T 97.8 O2 99 on RA .ECG showed nonspecific T wave inversions in V1/V2, HR 82. Trop 0.01, CXR-negative. She was given Plavix LD, ASA 325, Nitroglycerin, famotidine Pertinent Labs: glycosylated a1c-6, Hgb 10.5, HCT 34.3, Mg 2.6, UA pos for epithelial cells and mucus, AST 13 She is not followed by a computer clerk. Her PCP is Dr. Velazquez. Allergies/Medications Allergies: Coded Allergies: Iodinated Contrast- Oral and IV Dye (IODINATED CONTRAST MEDIA - ORAL AND) ( Severe, ANAPHYLAXIS 04/29/16) iodine (Severe, ANAPHYLAXIS 04/29/16) shellfish derived (Severe, ANAPHYLAXIS 04/29/16) Home Med list Albuterol Sulfate (Proair Hfa) 90 MCG HFA.AER.AD 2 PUF INH PRN ASTHMA ( Reported) Budesonide/Formoterol Fumarate (Symbicort 160-4.5 Mcg Inhaler) 160 MCG-4.5 MCG/ ACTUATION HFA.AER.AD 2 PUF INH BID BREATHING PROBLEMS (Reported) Butalb/Acetaminophen/Caffeine (Fioricet 50-300-40 MG Capsule) 50 MG-300 MG-40 MG CAPSULE 1 CAP PO PRN MIGRAINE (Reported) Ergocalciferol (Vitamin D2) (Vitamin D2) 50,000 UNIT CAPSULE 1 CAP PO QFRI SUPPLEMENT (Reported) Famotidine 40 MG TABLET 1 TAB PO DAILY GI (Reported) Ibuprofen 800 MG TABLET 1 TAB PO PRN PAIN/INFLAMMATION (Reported) Montelukast Sodium 10 MG TABLET 1 TAB PO DAILY ALLERGIES (Reported) Topiramate 25 MG TABLET 1 TAB PO BID MIGRAINES (Reported) Past History Travel History Traveled to [place] past 21 day No Medical History Neurological: MIGRAINES EENT: NONE Cardiovascular: NONE Respiratory: asthma Gastrointestinal: NONE Hepatic: NONE Renal: NONE Musculoskeletal: NONE Psychiatric: NONE Endocrine: NONE Cancer(s): NONE HOSPITAL NURSE LIAISON/Reproductive: NONE Surgical History Surgical History: cholecystectomy, tubal ligation Past Family/Social History Psychosocial History Services at Home: NONE Review of Systems Review of Systems Constitutional: Reports: see HPI. Exam & Diagnostic Data Last 24 Hrs of Vital Signs/I&O Vital Signs Date Time Temp Pulse Resp B/P B/P Pulse O2 O2 Flow FiO2 Mean Ox Delivery Rate 11/13 1746 132/86 11/13 1735 84 133/90 11/13 1705 97.0 89 18 108/64 97 Room Air 11/13 1427 97.8 100 16 139/84 99 Room Air Intake & Output 11/13 1600 11/13 0800 11/13 0000 Intake Total Output Total Balance Patient 150 lb Weight Weight Reported by Patient Measurement Method Physical Exam General Appearance Alert, Oriented X3, Cooperative, No Acute Distress HEENT Atraumatic, PERRLA, EOMI Neck Supple, No JVD Cardiovascular Regular Rate, Normal S1, Normal S2, No Murmurs Lungs Clear to Auscultation, Normal Air Movement Abdomen Normal Bowel Sounds, Soft, No Tenderness Extremities No Cyanosis, No Edema, Normal Pulses Last 24 Hrs of Labs/Yoshi: Laboratory Tests 11/13/16 1540: Anion Gap 10, Estimated GFR > 60, BUN/Creatinine Ratio 21.3, Glucose 80, Calcium 9.0, Total Bilirubin 0.5, AST 13 L, ALT 40, Alkaline Phosphatase 53, Troponin I < 0.01, Total Protein 7.3, Albumin 4.1, Globulin 3.2, Albumin/Globulin Ratio 1.3 , PT 13.6 H, INR 1.30 H, APTT 28, D-Dimer High Sensitivty < 200, CBC w Diff NO MAN DIFF REQ, RBC 5.65 H, MCV 60.8 L, MCH 18.7 L, RDW 20.5 H, MPV 9.4, Gran % 56.9, Lymphocytes % 29.9, Monocytes % 8.5, Eosinophils % 4.3, Basophils % 0.4, Absolute Granulocytes 5.0, Absolute Lymphocytes 2.6, Absolute Monocytes 0.7 H, Absolute Eosinophils 0.4, Absolute Basophils 0, PUBS MCHC 30.7 L, Urine Color YEL, Urine Clarity CLEAR, Urine pH 7.0, Ur Specific [place] 1.015, Urine Protein TRACE H, Urine Ketones NEG, Urine Nitrite NEG, Urine Bilirubin NEG, Urine Urobilinogen 0.2, Ur Leukocyte Esterase NEG, Ur Microscopic SEDIMENT EXAMINED, Urine RBC FEW H, Urine WBC RARE, Ur Epithelial Cells MOD H, Urine Mucus MANY H, Urine Hemoglobin NEG, Urine Glucose NEG, Urine Test NEGATIVE Assessment/Plan Assessment: A: Ms. Lamar is a 36 yo F with a PMH significant for asthma, migraines on Fioricet and Topiramate, GERD on famotidine, chronic anemia presented to the ED with L sided substernal chest pressure relieved with nitroglycerin and rest, radiated to the L scapula and L arm, associated with L arm numbness and weakness since yesterday. She stated she also felt ARREGUIN while playing with her baby but denies diaphoresis, blurry vision, dizziness, vomiting, abdominal pain, urinary or bowel symptoms or leg swelling. She denies any previous episode of CP and stated that it felt different from her acid reflux. P: Unstable angina L sided substernal chest pressure relieved with nitroglycerin and rest, radiated to the L scapula and L arm, associated with L arm numbness and weakness, pos ARREGUIN. No cardiac history. FH-Dad with DM and NJ at 55. * Admit to tele * Serial TROP/ECG * FOBT neg * Dipyridamole stress test scheduled for a.m. * Start ASA, Plavix, Metoprolol, Statin, morphine, IV Heparin GERD L sided substernal chest pressure relieved with nitroglycerin. May be a flare up from her acid reflux, famotidine given in the ED, patient reports relief of pain with all the medications she received in the ED. * continue home meds-Famotidine History of asthma * TRC nebs History of migraines * continue home meds-Topiramate, Fioricet History of anemia Hemoglobin has been stable for the last 4 years, patient not on any iron supplements Diet- NPO midnight for stress test in the morning Pain pathyway-Tylenol DVT prophylaxis-IV Heparin Code: Full Core Measures/Miscellaneous Acute Coronary Syndrome ACS Diagnosis: Yes Beta-Haris W/I 24hrs Yes Currently on Statin Yes Cerebrovascular Accident CVA/TIA Diagnosis: No Congestive Heart Failure CHF Diagnosis: No VTE (View Protocol) VTE Risk Factors: No Risk Factors No [facility] VTE prophylaxis d/t: No contraindications No VTE Pharm Prophylaxis d/t: No contraindications VTE Diagnosis: No VTE Type: NONE VTE Confirmed by (Test): NONE Sepsis (View Protocol) Severe Sepsis Present: No Septic Shock Septic Shock Present: No Miscellaneous Documentation Attending Case Discussed With: ARLIN GO MD Primary Care Physician: CONSTANCE VELAZQUEZ MD Patient sees these Specialists None Level of Patient Care: Telemetry QUINTON PARADA 11/13/162027: Assessment/Plan As Ranked By This Provider Problem List: 1. Asthma 2. GERD 3. Chest pain Qualifiers Chest pain type: unspecified Qualified Code: R07.9 - Chest pain, unspecified Resident Review Statement Resident Statement: examined this patient, discussed with general internal medicine doctor, agreed with general internal medicine doctor, discussed with family, reviewed EMR data (avail), discussed with nursing , discussed with case mgmt, reviewed images, amended to note Other Findings: This is a 36-year-old female with past medical history significant for asthma, migraine headaches, GERD, nonsmoker, nonalcoholic presented to emergency department with chief complaint of left-sided chest pain for 1 day. Patient reports being having chest pain predominantly left-sided, 10 out of 10, pressure-like, radiating to left arm and left side of her back. Chest pain improved on rest and increased with exertion. Not relieving with the pain medication ibuprofen. Also associated with numbness and tingling sensation of her left arm. Denies any shortness of breath, sweating, diaphoresis. Also reported nausea however denies any vomiting. Denies any palpitations, headache, abdominal pain, change in bladder or bowel habits Of note patient completed Z-Cristobal one week ago for viral infection. Also reports having bad acid reflex. Not a smoker, alcoholic, illicit drug abuse. Family history significant for heart attack father 55 years. History of hypertension and diabetes in the family. Vitals on admission stable -afebrile, heart rate 100, respiratory rate 16, blood pressure 139/84, saturating at 95 on room air. Physical exam-HEENT normal, no JVD, cervical lymph nodes normal, S1-S2 normal no murmurs, lungs were clear, abdomen soft, nontender. Neuro exam is benign. Extremities no cyanosis no clubbing no edema. Pulses were intact. Pertinent labs on admission WBC 8.8, hemoglobin 10.5, hematocrit 34.8, platelet 248. BEP completely normal Troponins first set at -0.01 EKG showed sinus rhythm, rate 82, normal AK intervals, no acute ST-T wave changes, T-wave inversions in V1 and V2 Chest x-ray was completely normal In the emergency room she received nitroglycerin sublingual tablet after which her pain came down to 4 out of 10. Assessment and plan 1. Acute coronary syndrome/unstable angina Patient presented to emergency department with ongoing chest pain for 1 day. She presented with typical angina manifestations retrosternal pressure and tightness radiating to neck arm. Precipitated by exertion, relieved by rest and nitroglycerin. Associated with shortness of breath, nausea, vomiting. Examination was completely benign. First set of troponins and EKGs were within normal limits. * Possible differentials unstable angina/GERD/musculoskeletal. * Calculated KAITY risk score for unstable angina/nstemi-1. * Admitted to telemetry for further management * Continuous telemetry monitoring * Monitor vitals closely every shift * Provide supplemental oxygen if necessary * Serial troponins and EKGs * Cardiology was consulted * Aspirin 325 mg was given in the emergency room, will continue 81 mg from tomorrow * Plavix 300 mg loading dose was given, will continue 75 mg. * High-dose statin lipitor 80 mg * IV heparin bolus and IV heparin drip was started. Guaiac was negative * Metoprolol 12.5 mg twice a day * Echocardiogram * Stress test tomorrow * Nothing by mouth tonight * Will follow up cardiology recommendations History of asthma Continue home medications albuterol and Symbicort Allergies Will continue home montilukast Migraine headache Continue home medication topiramate 25 mg twice a day Continue home medication fioricet as needed daily GERD Continue home medication famotidine 40 daily Patient is full code Pain pathway was ordered DVT prophylaxis on IV heparin drip Nothing by mouth tonight for possible stress test tomorrow ARLIN GO MD 11/13/16 2230: Attending MD Review Statement Attending Statement Attending MD Statement: examined this patient, discuss w/resident/PA/EDUCATIONAL TECHNOLOGY COORDINATOR, agreed w/resident/PA/EDUCATIONAL TECHNOLOGY COORDINATOR, discussed with family, reviewed EMR data (avail), reviewed images, amended to note Attending Assessment/Plan: The patient is a 36 yo female with h/o asthma, migraine headaches, and GERD who presented in the [place] ED on the day of admission with left sided substernal chest pressure for1 day. Pain was worse with exertion and accompanied by some dyspnea. Pain was not relieved by GI cocktail in ED, however was relieved by NTG SL. She has had acid reflux symptoms in the past, however felt that this was different. She denies any prior exertional symptoms. She did have some chest discomfort during in 05/2012 and c/o chest pain then. ECHO was negative at that time. Physical Exam: VS: T [id number] P 100-84, R 16, BP 139/84, 132/86, PO 97% RA HEENT: eyes- PERRLA< EOMI, fundi benign henry- no exudate or other significant findings. Neck; supple, full flexion, no bruits or other findings Chest: diminished BS at bases, + rhonchi right mild to lower lung field; + mild costal tenderness left side of sternum Cor: RRR, nl S1, S2 2/o murm Abd: BS+, soft, NT, - HSM or HSM. Neuro: alert & oriented x 3, non-focal exam. Labs/Tests- as above noted. Impression/Plan: #Substernal Chest Pain/possible ACS- in patient with only cardiac risk factor is father with h/o early CAD. The patient tis pain free at present. Although this may represent cardiac etiology, other possible etiologies include GI (patient has h/o GERD and is on H2 haris). May have esophageal spasm as result of GERD and pain relieved by NTG (smooth muscle relaxant). There is also minimal costal cartilage tenderness and possible musculoskeletal component to symptoms. Plan: Admit to telemetry. Serial troponin I levels. Cardiology consult - . Begin IV heparin, Plavix, ASA, Atorvastatin, Metoprolol as per Dr. Moy DUBOSE in morning. Possible stress test. #GERD- is on chronic H2 haris. Plan: Continue H2 haris, may need PPI. #H/O Asthma- no active wheezing or dyspnea at present. Plan: TRC nebs prn. Continue Symbicort. #H/O Migraine Headaches- none at present. Plan: Will follow. Continue Topiramate and avoid Ibuprofen, Fioricet, and other meds at present. #Anemia- microcytic. Most likely secondary to menstrual blood loss or hereditary. H/H unchanged since 2012. Plan: OP follow-up.
--- NOTE | 2016-11-13 18:49 | NUR ---
PT TO ROOM 181 BED 1
--- NOTE | 2016-11-13 19:21 | NUR ---
REPORT CALLED TO ÓSCAR WEN ON TELE UNIT
--- NOTE | 2016-11-13 19:23 | NUR ---
REPEAT TROP DONE
--- NOTE | 2016-11-13 19:27 | NUR ---
REPEAT EKG AND TROPONINS BEING DONE. PT CONTINUES TO BE PAIN FREE, NSR ON MONITOR.
--- NOTE | 2016-11-13 19:27 | NUR ---
REPEAT EKG DONE
[2016-11-13 20:03] VITALS: BP 132/78
--- NOTE | 2016-11-13 22:30 | Admission Certification ---
Admission Certification Certification Statement - As attending physician, I certify that at the time of - admission, based on clinical presentation, severity of - symptoms, need for further diagnostic testing and - therapeutic interventions, and risk of adverse outcomes - without in-hospital treatment, in my clinical assessment, - this patient requires an acute hospital stay for a minimum - of two nights or longer. I have also considered psychsocial - factors such as support system, advanced age, financial - issues, cognitive issues, and failed out-patient treatments, - past re-admission history, safety of patient, and lack of - compliance as applicable. Specific rationale supporting this admission is: The patient presented with substernal chest pain that was relieved significantly with NTG. Also with exertional symptoms. Concern regarding ACS. Needs admission for serial EKG's, troponin I, ECHO. levels,cardiology consult (Dr. Winter). Possible stress test. IV heparin, po ASA/Statin/Metoprolol as per Cardiology.
--- NOTE | 2016-11-13 22:49 | Cons- Cardiology ---
General Information and HPI Consulting Request Date of Consult: 11/13/16 Requested By: ARLIN GO MD History of Present Illness: Gabriel is a 36 year old female with history of asthma and migraine who presented to the ER for evaluation of chest discomfort. Over the past couple days this patient has noted a moderate chest pressure that radiated to her left arm. At times there is also a superimposed sharp discomfort. The discomfort is exacerbated by physical exertion and lessens with rest. It seems to have resolved completely with the help of two SL NTG. This discomfort was associated with nausea and there was some mild shortness of breath. There is no respiratory component to this discomfort. it should be noted that this patient has frequent bilateral leg swelling without pain although none is present today. A prior echocardiogram from 2012 showed a normal EF of 70% with mild MR and trace TR. Allergies/Medications Allergies: Coded Allergies: Iodinated Contrast- Oral and IV Dye (IODINATED CONTRAST MEDIA - ORAL AND) ( Severe, ANAPHYLAXIS 04/29/16) iodine (Severe, ANAPHYLAXIS 04/29/16) shellfish derived (Severe, ANAPHYLAXIS 04/29/16) Home Med List: Albuterol Sulfate (Proair Hfa) 90 MCG HFA.AER.AD 2 PUF INH PRN ASTHMA ( Reported) Budesonide/Formoterol Fumarate (Symbicort 160-4.5 Mcg Inhaler) 160 MCG-4.5 MCG/ ACTUATION HFA.AER.AD 2 PUF INH BID BREATHING PROBLEMS (Reported) Butalb/Acetaminophen/Caffeine (Fioricet 50-300-40 MG Capsule) 50 MG-300 MG-40 MG CAPSULE 1 CAP PO PRN MIGRAINE (Reported) Ergocalciferol (Vitamin D2) (Vitamin D2) 50,000 UNIT CAPSULE 1 CAP PO QFRI SUPPLEMENT (Reported) Famotidine 40 MG TABLET 1 TAB PO DAILY GI (Reported) Ibuprofen 800 MG TABLET 1 TAB PO PRN PAIN/INFLAMMATION (Reported) Montelukast Sodium 10 MG TABLET 1 TAB PO DAILY ALLERGIES (Reported) Topiramate 25 MG TABLET 1 TAB PO BID MIGRAINES (Reported) Past History Travel History Traveled to [place] past 21 day No Medical History Blood Transfusion Hx: No Neurological: MIGRAINES EENT: NONE Cardiovascular: NONE Respiratory: asthma Gastrointestinal: NONE Hepatic: NONE Renal: NONE Musculoskeletal: NONE Psychiatric: NONE Endocrine: NONE Blood Disorders: anemia Cancer(s): NONE PERSONAL LINES APPRAISER/Reproductive: NONE Surgical History Surgical History: cholecystectomy, tubal ligation Psychosocial History Where Do You Live? Home Services at Home: NONE Smoking Status: Never Smoked Exam & Diagnostic Data Vital Signs and I&O Vital Signs Date Time Temp Pulse Resp B/P B/P Pulse O2 O2 Flow FiO2 Mean Ox Delivery Rate 11/13 2201 84 132/78 11/13 2002 97.7 84 18 132/78 98 Room Air 11/13 2000 97 Room Air 11/13 1924 97.0 82 18 143/81 97 Room Air 11/13 1746 132/86 11/13 1735 84 133/90 11/13 1705 97.0 89 18 108/64 97 Room Air 11/13 1427 97.8 100 16 139/84 99 Room Air Intake & Output 11/13 1600 11/13 0800 11/13 0000 11/12 1600 11/12 0811/12 0000 Intake Total Output Total Balance Patient 150 lb Weight Weight Reported by Patient Measurement Method Physical Exam: General: WD/WN female in NAD; alert and oriented x 3 HEENT: NC/AT, PERRL, EOMI Neck: no JVD, no carotid bruit Heart: RRR with S4 Lungs: clear bilaterally Abdomen: soft, NT, +ve bowel sounds Extremities: no edema Assessment/Plan Assessment/Plan * This patient is young but nevertheless and risk factors for coronary artery disease and symptoms very suggestive of unstable angina. We will monitor her on telemetry and rule her out for an AL. * Obtain and echocardiogram and obtain a stress test in the morning if she rules out for an AL. * Begin anticoagulation with IV heparin and administer Plavix 75mg daily after a 300mg loading dose. Begin aspirin 325mg daily. Begin a statin and NTG paste 1 inch every 6 hours. Finally, begin Lopressor 25mg BID. Consult Acknowledgment - Thank you for your consult request.
[2016-11-14 03:05] LABS: PTT > 120 SEC (25-37)
[2016-11-14 06:27] VITALS: BP 106/70
[2016-11-14 08:17] LABS: ABSOLUTE BASOPHIL COUNT 0 /CUMM (0.0-0.2); ABSOLUTE EOSINOPHIL COUNT 0.5 /CUMM (0.0-0.7); ABSOLUTE GRANULOCYTE CT 3.4 /CUMM (1.4-6.5); ABSOLUTE LYMPH COUNT 2.5 /CUMM (1.2-3.4); ABSOLUTE MONOCYTE COUNT 0.5 /CUMM (0.10-0.60); BASOPHIL % 0.6 % (0.0-2.0); EOSINOPHIL % 6.7 % (0-5); HEMATOCRIT 34.2 % (37-47); MEAN CORPUSCULAR HGB 18.3 PG (27.0-31.0); MEAN CORPUSCULAR HGB CONC 30.2 G/DL (33.0-37.0); MEAN PLATELET VOLUME 12.2 FL (7.4-10.4); RBC DISTRIBUTION WIDTH 20.2 % (11.5-14.5); RED BLOOD CELL CT 5.64 /CUMM (4.20-5.40)
[2016-11-14 09:03] LABS: GRANULOCYTE % 48.8 % (42.2-75.2); MEAN CORPUSCULAR VOLUME 60.6 FL (81.0-99.0); PLATELET COUNT 288 /CUMM (130-400)
--- NOTE | 2016-11-14 09:19 | PN- Housestaff ---
CHRISTOPHER NAVARRO 11/14/16 0919: Subjective Follow-up For: Unstable Angina Subjective: Patient reports L side chest discomfort. No acute events overnight. Review of Systems Constitutional: Reports: see HPI. Objective Last 24 Hrs of Vital Signs/I&O Vital Signs Date Time Temp Pulse Resp B/P B/P Pulse O2 O2 Flow FiO2 Mean Ox Delivery Rate 11/14 1444 99.0 80 18 120/80 98 Room Air 11/14 0800 Room Air 11/14 0627 98.2 54 20 106/70 98 11/13 2201 84 132/78 11/13 2002 97.7 84 18 132/78 98 Room Air 11/14 1999 97 Room Air 11/13 192 97.0 82 18 143/81 97 Room Air 11/13 1746 132/86 11/13 1735 84 133/90 Intake & Output 11/14 1600 11/14 0800 11/14 0000 Intake Total 689.6 320 233.6 Output Total Balance 689.6 320 233.6 Intake, IV 89.6 220 33.6 Intake, Oral 600 100 200 Patient 152 lb Weight Weight Reported by Patient Measurement Method Physical Exam General Appearance: Alert, Oriented X3, Cooperative, No Acute Distress HEENT: Atraumatic, PERRLA Neck: Supple, No JVD Cardiovascular: Normal S1, Normal S2, No Murmurs Lungs: Clear to Auscultation, Normal Air Movement Abdomen: Normal Bowel Sounds, Soft, No Tenderness Extremities: No Cyanosis, No Edema, No Tenderness/Swelling Current Medications: Current Medications Sig/Radha Start time Last Medication Dose Route Stop Time Status Admin Acetaminophen 650 MG Q6P PRN 11/13 1899 AC PO Acetaminophen 1,000 MG Q6P PRN 11/13 1900 AC 11/14 IV 0506 Acetaminophen/ 1 TAB Q4P PRN 11/13 1914 AC Butalbital/Caffeine PO Albuterol Sulfate 2 PUF DAILY 11/14 1000 AC 11/14 INH 1531 Aspirin 81 MG DAILY 11/14 1000 DC PO Aspirin 325 MG DAILY 11/14 1000 AC 11/14 PO 1551 Aspirin 0 .STK-MED ONE 11/13 1733 DC PO Aspirin 325 MG ONCE ONE 11/13 1730 DC 11/13 PO 11/13 1731 1730 Atorvastatin Calcium 80 MG 1700 11/13 1915 AC 11/14 PO 1600 Budesonide/ 2 PUF BID 11/13 2200 AC 11/14 Formoterol Fumarate INH 1530 Clopidogrel Bisulfate 75 MG DAILY 11/14 1000 AC 11/14 PO 1551 Clopidogrel Bisulfate 300 MG ONCE ONE 11/13 1730 DC 11/13 PO 11/13 1731 1730 Famotidine 40 MG DAILY 11/14 1000 AC 11/14 PO 1551 Famotidine 0 .STK-MED ONE 11/13 1805 DC IV Famotidine 20 MG ONCE ONE 11/13 1800 DC 11/13 IV 11/13 1801 1823 Heparin Sodium 0 .STK-MED ONE 11/13 1805 DC (Porcine) .ROUTE Heparin Sodium 4,000 UNIT ONCE ONE 11/13 1800 DC 11/13 (Porcine) IV 11/13 180 1823 Heparin Sodium 25,000 UNIT Q24H 11/13 1800 AC 11/13 (Porcine) IV 182 Sodium Chloride 500 ML Metoprolol Tartrate 25 MG BID 11/14 1000 AC PO Metoprolol Tartrate 12.5 MG BID 11/13 2200 DC 11/13 PO 2201 Montelukast Sodium 10 MG AT BEDTIME 11/14 2200 AC PO Morphine Sulfate 2 MG Q4P PRN 11/13 1900 AC IV Nitroglycerin 1 GM Q6 11/14 0600 AC 11/14 TOP 1556 Nitroglycerin 0.4 MG ONCE ONE 11/13 1800 DC 11/13 SL 11/13 1801 1755 Nitroglycerin 0 .STK-MED ONE 11/13 1733 DC SL Nitroglycerin 0.4 MG ONCE ONE 11/13 1730 DC 11/13 SL 11/13 1731 1730 Pantoprazole Sodium 40 MG ONCE ONE 11/13 1730 CAN IV 11/13 173 Topiramate 25 MG BID 11/13 2200 AC 11/13 PO 2159 Last 24 Hrs of Lab/Yoshi Results Last 24 Hrs of Labs/Mics: Laboratory Tests 11/14/16 0955: APTT 69 H 11/14/16 0705: Anion Gap 8, Estimated GFR > 60, BUN/Creatinine Ratio 24.3, CBC w Diff NO MAN DIFF REQ, RBC 5.64 H, MCV 60.6 L, MCH 18.3 L, RDW 20.2 H, MPV 12.2 H, Gran % 48.8, Lymphocytes % 36.0, Monocytes % 7.9, Eosinophils % 6.7 H, Basophils % 0.6, Absolute Granulocytes 3.4, Absolute Lymphocytes 2.5, Absolute Monocytes 0.5 , Absolute Eosinophils 0.5, Absolute Basophils 0, PUBS MCHC 30.2 L 11/14/16 0015: Troponin I < 0.01, APTT > 120 *H 11/13/16 1920: Troponin I < 0.01 Assessment/Plan Assessment: A: Ms. Lamar is a 36 yo F with a PMH significant for asthma, migraines on Fioricet and Topiramate, GERD on famotidine, chronic anemia presented to the ED with L sided substernal chest pressure relieved with nitroglycerin and rest, radiated to the L scapula and L arm, associated with L arm numbness and weakness since yesterday. She stated she also felt ARREGUIN while playing with her baby but denies diaphoresis, blurry vision, dizziness, vomiting, abdominal pain, urinary or bowel symptoms or leg swelling. She denies any previous episode of CP and stated that it felt different from her acid reflux. P: 1. Possible Unstable angina L sided substernal chest pressure at rest and on exertion, relieved with nitroglycerin, radiated to the L scapula and L arm, associated with L arm numbness and weakness, pos ARREGUIN. No cardiac history. FH-Dad with DM and [place] at 55. * Admit to tele * TROP/ECG - negative * Dipyridamole exercise stress test scheduled for a.m., resting test today * Continue full dose ASA, Plavix, Metoprolol 25mg BID, Atorvastatin 80mg, morphine, IV Heparin, NTG q6 2. GERD L sided substernal chest pressure relieved with nitroglycerin. May be a flare up from her acid reflux, famotidine given in the ED, patient reports relief of pain with all the medications she received in the ED. * continue home meds-Famotidine 3. History of asthma * TR nebs 4. History of migraines * continue home meds-Topiramate, Fioricet 5. History of anemia Hemoglobin has been stable for the last 4 years, patient not on any iron supplements Diet- Regular Pain pathyway-Tylenol DVT prophylaxis-IV Heparin Code: Full Problem List: 1. Chest pain 2. GERD 3. Asthma Pain Ratin Pain Location: N/A Pain Goal: Pain 4 or less Pain Plan: Tylenol, Morphine, NTG Tomorrow's Labs & Rationales: None [email or web address] 11/14/16 1103: Attending MD Review Statement Attending Statement Attending MD Statement: examined this patient, discuss w/resident/PA/JUNIOR SYSTEMS ANALYST, agreed w/resident/PA/JUNIOR SYSTEMS ANALYST, discussed with family, reviewed EMR data (avail), discussed with nursing, discussed with case mgmt, reviewed images, amended to note Attending Assessment/Plan: 36 o/f with unstable angina admitted to telemetry monitoring, cardiac enzymes negative. Cardiology followoing, plan for stress test. a/c, antiplatelet tehrapy , statin, b manjit as per cardiology. cont current care.
[2016-11-14 11:07] LABS: PTT 69 SEC (25-37)
--- NOTE | 2016-11-14 14:23 | PN- Cardiology ---
Subjective Subjective: * Chest discomfort is improved although not completely gone. She also reports mild shortness of breath with walking. * Normal cardiac enzymes. Objective Vital Signs and I&Os Vital Signs Date Time Temp Pulse Resp B/P B/P Pulse O2 O2 Flow FiO2 Mean Ox Delivery Rate 11/14 08 Room Air 11/14 0627 98.2 54 20 106/70 98 11/13 2201 84 132/78 11/13 2002 97.7 84 18 132/78 98 Room Air 11/13 2000 97 Room Air 11/13 1924 97.0 82 18 143/81 97 Room Air 11/13 1746 132/86 11/13 1735 84 133/90 11/13 1705 97.0 89 18 108/64 97 Room Air 11/13 1427 97.8 100 16 139/84 99 Room Air Intake & Output 11/14 1600 11/14 0800 11/14 0000 11/13 1600 11/13 0800 11/13 0000 Intake Total 320 233.6 Output Total Balance 320 233.6 Intake, IV 220 33.6 Intake, Oral 100 200 Patient 152 lb 150 lb Weight Weight Reported by Patient Reported by Patient Measurement Method Physical Exam: General: WD/WN female in NAD; alert and oriented x 3 Neck: no JVD, no carotid bruit Heart: RRR without murmur Lungs: clear bilaterally Extremities: no edema Assessment/Plan Assessment/Plan * This patient is young but nevertheless and risk factors for coronary artery disease and symptoms very suggestive of unstable angina. We will monitor her on telemetry and obtain a stress test to risk stratify for ischemia. * Obtain and echocardiogram. * Continue anticoagulation with IV heparin, Plavix and aspirin. Continue a statin, NTG paste 1 inch every 6 hours and Lopressor 25mg BID. Continue telemetry? Yes
[2016-11-14 14:44] VITALS: BP 120/80
--- NOTE | 2016-11-14 16:40 | Patient Discharge Instructions ---
Discharge Instructions General Discharge Information You were seen/treated for: chest pain Special Instructions: Follow-up with primary care physician in 1-2 weeks after discharge Follow-up with [facility] in 1-2 weeks after discharge Diet Continue normal diet: Yes Activity Full Activity/No Limits: Yes Acute Coronary Syndrome Inclusion Criteria At DC or during hospital stay patient has or had the following: ACS DIAGNOSIS Yes Discharge Core Measures Meds if any: Prescribed or Continued at Discharge NIDA/ARB if EF <40% No Aspirin Yes Beta-Haris Yes Statin Yes Meds if any: NOT Prescribed or Continued at Discharge Congestive Heart Failure Inclusion Criteria At DC or during hospital stay patient has or had the following: CHF DIAGNOSIS No Discharge Core Measures Meds if any: Prescribed or Continued at Discharge Meds if any: NOT Prescribed or Continued at Discharge Cerebrovascular accident Inclusion Criteria At DC or during hospital stay patient has or had the following: CVA/TIA Diagnosis No Discharge Core Measures Meds if any: Prescribed or Continued at Discharge Meds if any: NOT Prescribed or Continued at Discharge Venous thromboembolism Inclusion Criteria VTE Diagnosis No VTE Type NONE VTE Confirmed by (Test) NONE Discharge Core Measures - Per Current guidelines, there needs to be overlap - treatment for the first 5 days of Warfarin therapy. - If discharged on Warfarin prior to 5 days of - overlap therapy, the patient will need to be - assessed for post discharge needs including - *Post discharge parental anticoagulation - *Warfarin and/or parental anticoagulation education - *Follow up date to check INR post discharge At least 5 days overlap therapy as Inpatient No Meds if any: Prescribed or Continued at Discharge Note: Overlap Therapy is Warfarin and Anticoagulant Meds if any: NOT Prescribed or Continued at Discharge
--- NOTE | 2016-11-14 17:48 | ECHOCARDIOGRAM REPORT ---
PRIYA HERNDON Age: 36 : 1980 Gender: F Exam Date: 11/14/2016 07:50 Exam Location: [address] Ht (in): 60 Wt (lb): 151 BSA: 1.73 BP: 106 / 70 Ordering Physician: HONEY PARADA M Referring Physician: HONEY PARADA MD Technologist: Gee Huang [facility] Room Number: 181-1 Indications: Chest Pain Rhythm: Sinus Technical Quality: Fair FINDINGS Left Ventricle Normal size left ventricle. Normal left ventricular wall thickness. Normal left ventricular wall motion. Normal left ventricular ejection fraction visually estimated at 60%. Normal left ventricular diastolic filling pattern for age. Right Ventricle Normal right ventricular size and function. Right Atrium Normal right atrial size. Left Atrium Normal left atrial size. Mitral Valve Mild mitral annular calcification. Mitral valve mildly thickened. Trace mitral regurgitation. Aortic Valve Tricuspid aortic valve. Mild aortic sclerosis. No aortic valve stenosis or regurgitation. Tricuspid Valve Structurally normal tricuspid valve. Trace tricuspid regurgitation. No evidence of pulmonary hypertension. Right ventricular systolic pressure estimated to be within the normal range at 24 mmHg. Pulmonic Valve Pulmonic valve not well visualized, grossly normal. Trace pulmonic regurgitation. Pericardium No pericardial effusion. Great Vessels Normal size aortic root. Normal size inferior vena cava CONCLUSIONS Normal size left ventricle. Normal left ventricular wall thickness. Normal left ventricular wall motion. Normal left ventricular ejection fraction visually estimated at 60%. Normal left ventricular diastolic filling pattern for age. Normal right ventricular size and function. Normal atrial size. Trace mitral regurgitation. Trace tricuspid regurgitation. No evidence of pulmonary hypertension. Trace pulmonic regurgitation. Richy Carlos M.D. (Electronically Signed) Final Date: 14 November 2016 17:47 MEASUREMENTS (Male / Female) Normal Values 2D ECHO LV Diastolic Diameter PLAX 4.1 cm 4.2 - 5.9 / 3.9 - 5.3 cm LV Systolic Diameter PLAX 2.8 cm 2.1 - 4.0 cm LV Fractional Shortening PLAX 31.7 % 25 - 46 % LV Ejection Fraction 2D Teich 60.2 % IVS Diastolic Thickness 0.8 cm LVPW Diastolic Thickness 0.9 cm LV Relative Wall Thickness 0.4 RV Internal Dim ED PLAX 2.9 cm 1.9 - 3.8 cm LVOT Diameter 1.8 cm Aortic Root Diameter 2.3 cm LA Systolic Diameter LX 2.2 cm 3.0 - 4.0 / 2.7 - 3.8 cm LA Volume 22.0 cm 18 - 58 / 22 - 52 cm Ascending Aorta Diameter 2.2 cm DOPPLER AV Peak Velocity 119.0 cm/s AV Peak Gradient 5.7 mmHg AV Mean Velocity 79.4 cm/s AV Mean Gradient 3.0 mmHg AV Velocity Time Integral 26.2 cm LVOT Peak Velocity 91.7 cm/s LVOT Peak Gradient 3.4 mmHg LVOT Mean Velocity 63.8 cm/s LVOT Mean Gradient 2.0 mmHg LVOT Velocity Time Integral 21.3 cm LVOT Stroke Volume 54.2 cm AV Area Cont Eq vti 2.1 cm AV Area Cont Eq pk 2.0 cm MV Peak Velocity 101.5 cm/s MV Peak Gradient 4.1 mmHg MV Mean Velocity 62.1 cm/s MV Mean Gradient 2.0 mmHg Mitral E Point Velocity 86.9 cm/s Mitral A Point Velocity 52.8 cm/s Mitral E to A Ratio 1.6 MV PHT Velocity 102.2 cm/s MV Deceleration Mckean 278.0 cm/s MV Pressure Half Time 110.3 ms MV Area PHT 2.0 cm MV Deceleration Time 261.0 ms TR Peak Velocity 220.0 cm/s TR Peak Gradient 19.4 mmHg Right Atrial Pressure 5.0 mmHg Pulmonary Artery Systolic Pressu 24.4 mmHg Right Ventricular Systolic Press 24.4 mmHg PV Peak Velocity 82.7 cm/s PV Peak Gradient 2.7 mmHg PV Mean Velocity 60.5 cm/s PV Mean Gradient 2.0 mmHg PV Velocity Time Integral 19.3 cm LV E' Lateral Velocity 14.6 cm/s Mitral E to LV E' Lateral Ratio 6.0 LV E' Septal Velocity 12.1 cm/s Mitral E to LV E' Septal Ratio 7.2
[2016-11-15 00:56] LABS: PTT 58 SEC (25-37)
[2016-11-15 06:48] VITALS: BP 94/70
--- NOTE | 2016-11-15 07:57 | PN- Housestaff ---
CHRISTOPHER NAVARRO 11/15/16 0756: Subjective Follow-up For: Possible Unstable Angina Possible PE GERD Subjective: Patient has no complaints. She was bradycardic overnight Review of Systems Constitutional: Reports: see HPI. Objective Last 24 Hrs of Vital Signs/I&O Vital Signs Date Time Temp Pulse Resp B/P B/P Pulse O2 O2 Flow FiO2 Mean Ox Delivery Rate 11/15 1455 97.9 70 20 94/70 98 Room Air 11/15 1003 74 104/74 11/15 0648 98.0 72 20 94/70 99 Room Air 11/14 2243 97.7 72 18 98 Room Air 11/14 2054 85 118/84 Intake & Output 11/15 1600 11/15 0800 11/15 0000 Intake Total 064 062 6348.2 Output Total 800 Balance -80 112 1311.2 Intake, IV 112 147.2 Intake, Oral 720 1164 Output, Urine 800 Physical Exam General Appearance: Alert, Oriented X3, Cooperative, No Acute Distress HEENT: Atraumatic, PERRLA, EOMI Neck: Supple, No JVD Cardiovascular: Normal S1, Normal S2, No Murmurs Lungs: Clear to Auscultation, Normal Air Movement Abdomen: Normal Bowel Sounds, Soft, No Tenderness Extremities: No Cyanosis, No Edema, No Tenderness/Swelling Current Medications: Current Medications Sig/Radha Start time Last Medication Dose Route Stop Time Status Admin Acetaminophen 650 MG .STK-MED ONE 11/15 0232 DC PO 11/15 0233 Acetaminophen 650 MG Q6P PRN 11/13 1900 AC 11/15 PO 0225 Acetaminophen 1,000 MG Q6P PRN 11/13 1900 AC 11/14 IV 0506 Acetaminophen/ 1 TAB Q4P PRN 11/13 1914 AC 11/15 Butalbital/Caffeine PO 0225 Albuterol Sulfate 2 PUF DAILY 11/14 1000 AC 11/14 INH 1531 Aspirin 325 MG DAILY 11/14 1000 AC 11/15 PO 1002 Atorvastatin Calcium 80 MG 1700 11/13 1915 AC 11/14 PO 1600 Budesonide/ 2 PUF BID 11/13 2200 AC 11/15 Formoterol Fumarate INH 1002 Clopidogrel Bisulfate 75 MG DAILY 11/14 1000 AC 11/15 PO 1003 Dextrose/Sodium 1,000 ML Q13H 11/15 0800 AC Chloride IV 11/15 2058 Diphenhydramine HCl 50 MG ONCE ONE 11/15 1800 AC IV 11/15 1801 Famotidine 40 MG DAILY 11/14 1000 AC 11/15 PO 1002 Heparin Sodium 25,000 UNIT Q24H 11/13 1800 AC 11/15 (Porcine) IV 1258 Sodium Chloride 500 ML Methylprednisolone 40 MG ONCE ONE 11/15 1400 DC 11/15 IV 11/15 1401 1454 Metoprolol Tartrate 25 MG BID 11/14 1000 AC 11/15 PO 1003 Montelukast Sodium 10 MG AT BEDTIME 11/14 2200 AC 11/14 PO 2054 Morphine Sulfate 2 MG Q4P PRN 11/13 1900 AC 11/14 IV 205 Nitroglycerin 1 GM Q6 11/14 0600 AC 11/15 TOP 1156 Ondansetron HCl 4 MG ONCE ONE 11/14 2230 DC 11/14 IV 11/14 223 2240 Topiramate 25 MG BID 11/13 2200 AC 11/15 PO 1003 Last 24 Hrs of Lab/Yoshi Results Last 24 Hrs of Labs/Mics: Laboratory Tests 11/15/16 1318: D-Dimer High Sensitivty Cancelled 11/15/16 1005: APTT 77 H, D-Dimer High Sensitivty < 200 11/14/16 2230: APTT 58 H Orders ECHO Findings: 11/14/16 CONCLUSIONS Normal size left ventricle. Normal left ventricular wall thickness. Normal left ventricular wall motion. Normal left ventricular ejection fraction visually estimated at 60%. Normal left ventricular diastolic filling pattern for age. Normal right ventricular size and function. Normal atrial size. Trace mitral regurgitation. Trace tricuspid regurgitation. No evidence of pulmonary hypertension. Trace pulmonic regurgitation Miscellaneous Findings: 11/14/16-1799 NUC - MYOCARDIAL PERFUSION IMAGING FINDINGS: Normal left ventricular chamber size. Stress and rest images demonstrate fairly homogeneous perfusion. No suspicious defects or perfusion abnormality identified. The stress images were obtained using a gated SPECT technique, which permits visualization of wall motion and calculation of the left ventricular ejection fraction. Gated images demonstrate normal wall motion. The calculated left ventricular ejection fraction is 77% on the stress study. IMPRESSION: Normal stress and rest myocardial perfusion imaging. Normal wall motion and normal ejection fraction. Assessment/Plan Assessment: A: Ms. Lamar is a 36 yo F with a PMH significant for asthma, migraines on Fioricet and Topiramate, GERD on famotidine, chronic anemia presented to the ED with L sided substernal chest pressure relieved with nitroglycerin and rest, radiated to the L scapula and L arm, associated with L arm numbness and weakness since yesterday. She stated she also felt ARREGUIN while playing with her baby but denies diaphoresis, blurry vision, dizziness, vomiting, abdominal pain, urinary or bowel symptoms or leg swelling. She denies any previous episode of CP and stated that it felt different from her acid reflux. P: 1. Possible Unstable angina L sided substernal chest pressure at rest and on exertion, relieved with nitroglycerin, radiated to the L scapula and L arm, associated with L arm numbness and weakness, pos ARREGUIN. No cardiac history. FH-Dad with DM and [place] at 55. * Admit to tele * TROP/ECG - negative * Dipyridamole exercise stress test negative, resting ECHO 11/14 negative * Continue full dose ASA, Plavix, Metoprolol 25mg BID, Atorvastatin 80mg, morphine, IV Heparin, NTG q6 * D-dimer ordered to r/o PE 2. Possible PE * D-dimer ordered * CTA ordered (give with Benadryl and Solumedrol 40mg IV due to contrast allergy ) 3. GERD L sided substernal chest pressure relieved with nitroglycerin. May be a flare up from her acid reflux, famotidine given in the ED, patient reports relief of pain with all the medications she received in the ED. * continue home meds-Famotidine 4. History of asthma * [facility] nebs 5. History of migraines * continue home meds-Topiramate, Fioricet 6. History of anemia Hemoglobin has been stable for the last 4 years, patient not on any iron supplements Diet- NPO midnight for stress test in the morning Pain pathyway-Tylenol DVT prophylaxis-IV Heparin Code: Full Dispo-Possible dc tomorrow pending CTA results Problem List: 1. Asthma 2. GERD 3. Chest pain 4. Headache Pain Ratin Pain Location: N/A Pain Goal: Pain 4 or less Pain Plan: Tylenol Tomorrow's Labs & Rationales: None JUANITO CUMMINGS 11/15/16 1027: Attending MD Review Statement Attending Statement Attending MD Statement: examined this patient, discuss w/resident/PA/RECHARGER, agreed w/resident/PA/RECHARGER, discussed with family, reviewed EMR data (avail), discussed with nursing, discussed with case mgmt, reviewed images, amended to note Attending Assessment/Plan: 36 o/f with typical chest pain in low to intermediate risk admitted to telemetry monitoring, cardiac enzymes negative. Cardiology following, negative stress test resting part. f/u cardiology. Patient can be discharged home if part 1 stress test negative. F/u O/p PCP in 2 weeks of discharge.
--- NOTE | 2016-11-15 08:54 | PN- Cardiology ---
Subjective Subjective: * Patient complains of chest discomfort and shortness of breath at low levels of exercise during her stress test with no ECG evidence of ischemia. Nuclear imaging is pending. * No chest discomfort or shortness of breath at rest. Objective Vital Signs and I&Os Vital Signs Date Time Temp Pulse Resp B/P B/P Pulse O2 O2 Flow FiO2 Mean Ox Delivery Rate 11/15 0648 98.0 72 20 94/70 99 Room Air 11/14 2243 97.7 72 18 98 Room Air 11/14 2054 85 118/84 11/14 1444 99.0 80 18 120/80 98 Room Air Intake & Output 11/15 1600 11/15 0800 11/15 0000 11/14 1600 11/14 0800 11/14 0000 Intake Total 112 1311.2 689.6 320 233.6 Output Total Balance 112 1311.2 689.6 320 233.6 Intake, IV 112 147.2 89.6 220 33.6 Intake, Oral 1164 600 100 200 Patient 152 lb Weight Weight Reported by Patient Measurement Method Physical Exam: General: WD/WN female in NAD; alert and oriented x 3 Neck: no JVD, no carotid bruit Heart: RRR without murmur Lungs: clear bilaterally Extremities: no edema Assessment/Plan Assessment/Plan * This patient is young but nevertheless and risk factors for coronary artery disease and symptoms very suggestive of unstable angina upon initial presentation. Her stress test results are pending. * This patient continues to have exertional chest pain and shortness of breath. Her D-dimer is normal and her echo shows a normal EF with normal RV size and no pulmonary hypertension. If her stress test is normal and not indicative of myocardial ischemia then we will obtain a CT angiogram to assess for a PE since this would affect our decision on prolonged anticoagulation. For now continue IV heparin. * Continue anticoagulation with IV heparin, Plavix and aspirin. Continue a statin, NTG paste 1 inch every 6 hours and Lopressor 25mg BID. Continue telemetry? Yes
--- NOTE | 2016-11-15 10:48 | NUCLEAR MEDICINE REPORT ---
EXERCISE STRESS AND RESTING SPECT MYOCARDIAL PERFUSION IMAGING STUDY WITH GATED SPECT IMAGES: CLINICAL INDICATION: Angina PROCEDURE: Regional myocardial perfusion was assessed using a 2 day protocol. Stress images were obtained on 11/15/2016 following the intravenous administration of 29.9 mCi Tc 99m Myoview. Stress was performed using the standard Bharath protocol, with the patient reaching a peak heart rate of 92% maximal predicted heart rate. Rest images were obtained 11/14/2016 following the intravenous administration of 29.7 mCi Technetium 99m Myoview. Single photon emission tomographic (SPECT) images were obtained. SPECT images were acquired in a 64 x 64 matrix of 64 projections over 180 degrees. These were reconstructed into standard short axis, horizontal and vertical long axis cardiac projections. FINDINGS: Normal left ventricular chamber size. Stress and rest images demonstrate fairly homogeneous perfusion. No suspicious defects or perfusion abnormality identified. The stress images were obtained using a gated SPECT technique, which permits visualization of wall motion and calculation of the left ventricular ejection fraction. Gated images demonstrate normal wall motion. The calculated left ventricular ejection fraction is 77% on the stress study. IMPRESSION: Normal stress and rest myocardial perfusion imaging. Normal wall motion and normal ejection fraction.
[2016-11-15 12:04] LABS: PTT 77 SEC (25-37)
[2016-11-15 14:55] VITALS: BP 94/70
--- NOTE | 2016-11-15 19:04 | CT SCAN REPORT ---
EXAMINATION: CT ANGIOGRAM OF THE CHEST WITH AND WITHOUT CONTRAST (CT PULMONARY ANGIOGRAM FOR PE) CLINICAL INFORMATION: CHEST PAIN, SOB ON EXERTION COMPARISON: None TECHNIQUE: Prior to contrast administration, noncontrast localization images were obtained. Subsequently, multidetector volumetric imaging was performed from the thoracic inlet to below the diaphragms following the administration of 70 mL Optiray 320 intravenous contrast. No contrast reaction reported. Sagittal, coronal, and MIP oblique sagittal reformatted images were obtained on the CT workstation, uploaded to PACS, and reviewed. Total exam dose-length product 347.12 mGy-cm. FINDINGS: QUALITY OF STUDY/CONTRAST BOLUS: Satisfactory PULMONARY ARTERIES: No central or segmental pulmonary emboli. THORACIC AORTA: No aneurysm or dissection. LUNG: No focal consolidation, nodules or masses. PLEURA: No pleural effusion or pneumothorax. MEDIASTINUM: Normal heart size. No pericardial effusion. No hilar or mediastinal lymphadenopathy. No evidence of septal bowing or right heart strain. CHEST WALL/AXILLA: No axillary or internal mammary lymphadenopathy. OSSEOUS STRUCTURES: Degenerative spondylosis of spine with disc height narrowing and endplate spurring of the vertebrae. UPPER ABDOMEN: Unremarkable. No reflux of contrast into the hepatic veins to suggest elevated right heart pressures. Small splenule at the anterior splenic margin. IMPRESSION: No acute abnormality. No evidence of pulmonary embolism. VTE: negative
[2016-11-15 22:49] VITALS: BP 100/70
[2016-11-16 07:00] VITALS: BP 98/62
--- NOTE | 2016-11-16 07:13 | PN- Housestaff ---
Subjective Follow-up For: Possible Unstable Angina Possible PE GERD Subjective: Patient has no complaints. No acute events overnight. Review of Systems Constitutional: Reports: see HPI. Objective Last 24 Hrs of Vital Signs/I&O Vital Signs Date Time Temp Pulse Resp B/P B/P Pulse O2 O2 Flow FiO2 Mean Ox Delivery Rate 11/15 2249 98.8 85 20 100/70 97 Room Air 11/15 2152 87 114/80 11/15 1455 97.9 70 20 94/70 98 Room Air 11/15 1003 74 104/74 Intake & Output 11/16 0800 11/16 0000 11/15 1600 Intake Total 600 720 Output Total 800 Balance 600 -80 Intake, Oral 600 720 Output, Urine 800 Physical Exam General Appearance: Alert, Oriented X3, Cooperative, No Acute Distress HEENT: Atraumatic, PERRLA Neck: Supple, No JVD Cardiovascular: Regular Rate, Normal S1, Normal S2 Lungs: Clear to Auscultation, Normal Air Movement Abdomen: Normal Bowel Sounds, Soft, No Tenderness Extremities: No Cyanosis, No Edema, No Tenderness/Swelling Current Medications: Current Medications Sig/Radha Start time Last Medication Dose Route Stop Time Status Admin Acetaminophen 650 MG Q6P PRN 11/13 1900 AC 11/15 PO 0225 Acetaminophen 1,000 MG Q6P PRN 11/13 1900 AC 11/14 IV 0506 Acetaminophen/ 1 TAB Q4P PRN 11/13 191 AC 11/15 Butalbital/Caffeine PO 2151 Albuterol Sulfate 2 PUF DAILY 11/14 1000 AC 11/14 INH 1531 Aspirin 325 MG DAILY 11/14 1000 AC 11/15 PO 1002 Atorvastatin Calcium 80 MG 1700 11/13 1915 AC 11/15 PO 1742 Budesonide/ 2 PUF BID 11/13 2200 AC 11/15 Formoterol Fumarate INH 2151 Clopidogrel Bisulfate 75 MG DAILY 11/14 1000 AC 11/15 PO 1003 Dextrose/Sodium 1,000 ML Q13H 11/15 0800 DC Chloride IV 11/15 2059 Diphenhydramine HCl 50 MG ONCE ONE 11/15 1800 DC 11/15 IV 11/15 1801 1739 Famotidine 40 MG DAILY 11/14 1000 AC 11/15 PO 1002 Heparin Sodium 25,000 UNIT Q24H 11/13 1800 DC 11/15 (Porcine) IV 1258 Sodium Chloride 500 ML Methylprednisolone 40 MG ONCE ONE 11/15 1400 DC 11/15 IV 11/15 1401 1454 Metoprolol Tartrate 25 MG BID 11/14 1000 AC 11/15 PO 215 Montelukast Sodium 10 MG AT BEDTIME 11/14 2200 AC 11/15 PO 215 Morphine Sulfate 2 MG Q4P PRN 11/13 1900 AC 11/14 IV 205 Nitroglycerin 1 GM Q6 11/14 0600 AC 11/16 TOP 0701 Ondansetron HCl 4 MG .STK-MED ONE 11/15 1759 DC IM 11/15 1800 Topiramate 25 MG BID 11/13 2200 AC 11/15 PO 2150 Last 24 Hrs of Lab/Yoshi Results Last 24 Hrs of Labs/Mics: Laboratory Tests 11/15/16 1318: D-Dimer High Sensitivty Cancelled 11/15/16 1005: APTT 77 H, D-Dimer High Sensitivty < 200 Orders Radiology Findings: 11/15/16-1339 CTA CHEST-PULMONARY EMBOLISM IMPRESSION: No acute abnormality. No evidence of pulmonary embolism. VTE: negative Assessment/Plan Assessment: A: Ms. Lamar is a 36 yo F with a PMH significant for asthma, migraines on Fioricet and Topiramate, GERD on famotidine, chronic anemia presented to the ED with L sided substernal chest pressure relieved with nitroglycerin and rest, radiated to the L scapula and L arm, associated with L arm numbness and weakness since yesterday. She stated she also felt ARREGUIN while playing with her baby but denies diaphoresis, blurry vision, dizziness, vomiting, abdominal pain, urinary or bowel symptoms or leg swelling. She denies any previous episode of CP and stated that it felt different from her acid reflux. P: 1. Possible Unstable angina L sided substernal chest pressure at rest and on exertion, relieved with nitroglycerin, radiated to the L scapula and L arm, associated with L arm numbness and weakness, pos ARREGUIN. No cardiac history. FH-Dad with DM and MA at 55. * Admit to tele * TROP/ECG - negative * Dipyridamole exercise stress test negative, resting ECHO 11/14 negative * Continue full dose ASA, Plavix, Metoprolol 25mg BID, Atorvastatin 80mg, morphine, IV Heparin, NTG q6 * D-dimer ordered to r/o PE 2. Possible PE * D-dimer ordered - negative * CTA ordered (give with Benadryl and Solumedrol 40mg IV due to contrast allergy ) -negative 3. GERD L sided substernal chest pressure relieved with nitroglycerin. May be a flare up from her acid reflux, famotidine given in the ED, patient reports relief of pain with all the medications she received in the ED. * continue home meds-Famotidine 4. History of asthma * [facility] nebs 5. History of migraines * continue home meds-Topiramate, Fioricet 6. History of anemia Hemoglobin has been stable for the last 4 years, patient not on any iron supplements Diet-Regular Pain pathyway-Tylenol DVT prophylaxis-IV Heparin Code: Full Dispo-stable for DC today Problem List: 1. GERD 2. Asthma 3. Chest pain 4. Headache Pain Ratin Pain Location: N/A Pain Goal: Remain pain free Pain Plan: Tylenol Tomorrow's Labs & Rationales: None
--- NOTE | 2016-11-16 07:38 | Discharge Summary ---
Visit Information Visit Dates Admission Date: 11/13/16 Discharge Date: 11/16/16 Hospital Course Course Attending Physician: JUANITO CUMMINGS MD Primary Care Physician: CAROLINE PEREZ,CONSTANCE Bae. Other Care Providers: Melvin Winter MD Consulting Request: Consulting Specialty: Cardiology Hospital Course: Ms. Lamar is a 36 yo F with a PMH significant for asthma, migraines on Fioricet and Topiramate, GERD on famotidine, chronic anemia presented to the ED with L sided substernal chest pressure at rest and on exertion, relieved with nitroglycerin, radiated to the L scapula and L arm, associated with L arm numbness and weakness since yesterday. She also felt nauseated which she attributes to a viral infection in which she completed a course of antibiotics. She stated she also felt ARREGUIN while playing with her baby but denies diaphoresis, blurry vision, dizziness, vomiting, abdominal pain, urinary or bowel symptoms or leg swelling. She denies any previous episode of CP and stated that it felt different from her acid reflux. She had an ECHO was done in 06/2012 because she complained of CP and SOB at 24 weeks gestation reported EF 70%, mild regurgitation, trace TR. She has a history of anemia for the last 4 years, around the time she began having children but she said she has not been taking her iron supplements, she always feel fatigued and crave ice chips. Her FH is relevant for her dad who is a diabetic who had an AL at the age of 55 s/p 4 stent placements ED: Vitals- BP 139/84 HR 100 T 97.8 O2 99 on RA .ECG showed nonspecific T wave inversions in V1/V2, HR 82. Trop 0.01, CXR-negative. She was given Plavix LD, ASA 325, Nitroglycerin, famotidine Pertinent Labs: glycosylated a1c-6, Hgb 10.5, HCT 34.3, Mg 2.6, UA pos for epithelial cells and mucus, AST 13 She was admitted to telemetry for further workup, her serial trop/ecg were negative but she continued to have L chest discomfort which subsided with NTG and tylenol. Cardiology-Dr. Winter was consulted for further recommendations. Her labs were unremarkable and she underwent a stress test in 2 consecutive days which also ruled out CAD. A possible PE was suspected because of her persistent SOB and chest discomfort but her d-dimer and CTA were negative. She was given benadryl and solumedrol before her CTA because of previous allergy to contrast. Her home meds were continued for GERD and Migraines and she remained stable throughout her hospital course. Upon discharge she was instructed to continue her home medications and to follow up with her PCP-Dr. Harrington and paint spray inspector- Dr. Winter as an outpatient within 1-2 weeks. Problem List- 1. Possible Unstable angina L sided substernal chest pressure at rest and on exertion, relieved with nitroglycerin, radiated to the L scapula and L arm, associated with L arm numbness and weakness, pos ARREGUIN. No cardiac history. FH-Dad with DM and AL at 55. * Admitted to tele * TROP/ECG - negative * Dipyridamole exercise stress test 11/15 negative, resting ECHO 11/14 negative * Continued full dose ASA, Plavix, Metoprolol 25mg BID, Atorvastatin 80mg, IV Heparin, NTG q6 2. Possible PE * D-dimer ordered to r/o PE - negative * CTA ordered (gave Benadryl and Solumedrol 40mg IV due to contrast allergy) - negative 3. GERD L sided substernal chest pressure relieved with nitroglycerin. May be a flare up from her acid reflux, famotidine given in the ED, patient reports relief of pain with all the medications she received in the ED. * continued home meds-Famotidine 4. History of asthma * continued symbicort 5. History of migraines * continued home meds-Topiramate, Fioricet 6. History of anemia Hemoglobin has been stable for the last 4 years, patient not on any iron supplements Diet-Regular Pain pathyway-Tylenol DVT prophylaxis-IV Heparin Code: Full Allergies: Coded Allergies: Iodinated Contrast- Oral and IV Dye (IODINATED CONTRAST MEDIA - ORAL AND) ( Severe, ANAPHYLAXIS 04/29/16) iodine (Severe, ANAPHYLAXIS 04/29/16) shellfish derived (Severe, ANAPHYLAXIS 04/29/16) Pertinent Lab Results: 11/15/16-1339 CTA CHEST-PULMONARY EMBOLISM IMPRESSION: No acute abnormality. No evidence of pulmonary embolism. VTE: negative 11/14/16 ECHO CONCLUSIONS Normal size left ventricle. Normal left ventricular wall thickness. Normal left ventricular wall motion. Normal left ventricular ejection fraction visually estimated at 60%. Normal left ventricular diastolic filling pattern for age. Normal right ventricular size and function. Normal atrial size. Trace mitral regurgitation. Trace tricuspid regurgitation. No evidence of pulmonary hypertension. Trace pulmonic regurgitation 11/14/16-1800 NUC - MYOCARDIAL PERFUSION IMAGING FINDINGS: Normal left ventricular chamber size. Stress and rest images demonstrate fairly homogeneous perfusion. No suspicious defects or perfusion abnormality identified. The stress images were obtained using a gated SPECT technique, which permits visualization of wall motion and calculation of the left ventricular ejection fraction. Gated images demonstrate normal wall motion. The calculated left ventricular ejection fraction is 77% on the stress study. IMPRESSION: Normal stress and rest myocardial perfusion imaging. Normal wall motion and normal ejection fraction. Disposition Summary Disposition Principal Diagnosis: Possible Unstable angina Additional Diagnosis: GERD exacerbation Discharge Disposition: home or self care Discharge Instructions General Discharge Information Code Status: Full Code Patient's Diet: Regular Patient's Activity: As tolerated Follow-Up Instructions/Appts: Follow up with your PCP and paint spray inspector within 1-2 weeks of discharge Medications at Discharge Discharge Medications: Continue taking these medications: Albuterol Sulfate (Proair Hfa) 90 MCG HFA.AER.AD 2 Puff Inhale through mouth as needed for ASTHMA Comments: NOT TAKEN Ibuprofen (Ibuprofen) 800 MG TABLET 1 Tablet ORAL as needed for PAIN/INFLAMMATION Comments: NOT TAKEN Famotidine (Famotidine) 40 MG TABLET 1 Tablet ORAL DAILY Qty = 90 Comments: Last Taken:11/16/16 Time:9AM Montelukast Sodium (Montelukast Sodium) 10 MG TABLET 1 Tablet ORAL DAILY Qty = 90 Comments: NOTTAKEN Budesonide/Formoterol Fumarate (Symbicort 160-4.5 Mcg Inhaler) 160 MCG-4.5 MCG/ ACTUATION HFA.AER.AD 2 Puff Inhale through mouth TWICE DAILY Comments: Last Taken:11/16/16 Time:9AM Topiramate (Topiramate) 25 MG TABLET 1 Tablet ORAL TWICE DAILY Qty = 60 Comments: Last Taken:11/16/16 Time:9AM Butalb/Acetaminophen/Caffeine (Fioricet 50-300-40 MG Capsule) 50 MG-300 MG-40 MG CAPSULE 1 Capsule ORAL as needed for MIGRAINE Comments: PER PT Ergocalciferol (Vitamin D2) (Vitamin D2) 50,000 UNIT CAPSULE 1 Capsule ORAL EVERY SATURDAY Qty = 12 Comments: NOT TAKEN Copies To: CAROLINE PEREZ,CONSTANCE De Los Santos; MAYTE PEREZ PhD,MELVIN Reddy Attending MD Review Statement Documenting Attending: ZOILA PEREZ,JUANITO Other Findings: 36 o/f with no significant pmh but strong family history and typical chest pain was admitted to medical services, patient underwent nuclear stress test which was neagtive. CTA negative for PE, d dimer negative. Patient discharged in stable condition. Patient to f/u PCP in 1 week fo d/c.
[2016-11-16 08:55] VITALS: BP 126/90
== END 2016-11-16 10:30 | DRG 198 ==
LOC: ERH 14:21 → ERHI 17:40 → 1NO 17:40 → ENRESERV 18:46 → ENTRNSPT 19:29 → 1NO 19:50 → CMPTRNSPT 19:58 → 1NO 11-14 10:35 → ENPENDDIS 11-16 09:41 → 1NO 11-16 10:30
PROVIDERS: Hospitalist; Internal Medicine Interventional Cardiology; Physician Assistant Medical; ADMIT Internal Medicine
DX: I20.0 Unstable angina (principal); J45.909 Unspecified asthma, uncomplicated; G43.909 Migraine, unspecified, not intractable, without status migrainosus; D64.9 Anemia, unspecified; K21.9 Gastro-esophageal reflux disease without esophagitis
CPT/HCPCS: 1NP; 36415; 78452; 81001; 81025; 82436; 93005; 93010; 93016; 93017; 93306; A9502; J1200; J1644; J2405; J2920; J3490; J7042

== ENCOUNTER 2017-04-24 21:02 | Emergency (ER) | payer OTHER ==
[~2017-04-24 21:02] MED LIST changes: +VITAMIN D250000 UNIT PO
--- NOTE | 2017-04-24 21:25 | ED DYSPNEA/ASTHMA COMPLAINT ---
History of Present Illness General Chief Complaint: Dyspnea (COPD, CHF, Other) Stated Complaint: BIBA SOB Source: patient, EMS Exam Limitations: no limitations Vital Signs & Intake/Output Vital Signs & Intake/Output Vital Signs Date Time Temp Pulse Resp B/P B/P Pulse O2 O2 Flow FiO2 Mean Ox Delivery Rate 04/24 2256 98.5 85 18 118/65 98 Room Air 04/24 2116 98.3 104 20 126/70 99 Room Air Room Air Allergies Coded Allergies: Iodinated Contrast- Oral and IV Dye (IODINATED CONTRAST MEDIA - ORAL AND) ( Severe, ANAPHYLAXIS 04/24/17) iodine (Severe, ANAPHYLAXIS 04/24/17) shellfish derived (Severe, ANAPHYLAXIS 04/24/17) Triage Note: PT BIBA FROM HOME FOR FOR ASTHMA ATTACK AT HOME. PT STATES IT MAY HAVE STEMMED OFF OF AN ALELRGIC REACTION TO HER DOG. PT STATES SHJE TOOK 50MG OF BENADRYL, TOOK 6 ALBUTEROLS AND ONE DUONEB AT HOME. EMS ARRIVED AND PATIENT WAS STILL IN SOME DISTRESS SO 125MG OF SOLUMEDROL WAS GIVEN. PT ARRIVES WITH NO RESPIRATORY DISTRESS AND DENIES ANY CHEST PAIN. SHE IS ALERT AND ORIENTED. PT STATES IN Nov SHE HAD A CARDIAC CATH BY DR HU Triage Nurses Notes Reviewed? yes Onset: Abrupt Duration: minute(s): (30) Timing: recent history Severity: severe Activities at Onset: WASHING DOG Prior Episodes/Possible Cause: occasional episodes Modifying Factors: Improves With: other (BENEDRYL). Associated Symptoms: cough : No Patient currently breastfeeds: No HPI: Patient is a 37-year-old female with history of asthma, recent cardiac catheterization 6 months ago presenting to the emergency department complaining of sudden onset shortness of breath, itchiness, felt like her throat was closing that started about 30 minutes prior to arrival. She reports she immediately took 50 mg of Benadryl and used her inhaler. She noticed that it was not improving so she used her inhaler a few more times. She used her inhaler a total of 6 times prior to calling EMS. Positive palpitations. Denies any specific chest pain. No numbness or tingling. Chording team as she received Solu-Medrol en route. Denies nausea or vomiting. She does report that she has been wheezy. (Kenn PA,Nessa) Reconcile Medications Albuterol Sulfate (Proair Hfa) 90 MCG HFA.AER.AD 2 PUF INH PRN ASTHMA ( Reported) Azithromycin 250 MG TABLET 1 DP PO AD BRONCHITIS 2 the first day followed by 1 for days 2-5 Budesonide/Formoterol Fumarate (Symbicort 160-4.5 Mcg Inhaler) 160 MCG-4.5 MCG/ ACTUATION HFA.AER.AD 2 PUF INH BID BREATHING PROBLEMS (Reported) Butalb/Acetaminophen/Caffeine (Fioricet 50-300-40 MG Capsule) 50 MG-300 MG-40 MG CAPSULE 1 CAP PO PRN MIGRAINE (Reported) Ergocalciferol (Vitamin D2) (Vitamin D2) 50,000 UNIT CAPSULE 1 CAP PO QFRI SUPPLEMENT (Reported) Famotidine 40 MG TABLET 1 TAB PO DAILY GI (Reported) Ibuprofen 800 MG TABLET 1 TAB PO PRN PAIN/INFLAMMATION (Reported) Montelukast Sodium 10 MG TABLET 1 TAB PO DAILY ALLERGIES (Reported) Prednisone 10 MG TABLET 1 TAB PO DAILY BRONCHITIS 3 TABS PO X 3 DAYS, 2 TABS PO X 3 DAYS, 1 TAB PO X 3 DAYS Topiramate 25 MG TABLET 1 TAB PO BID MIGRAINES (Reported) (Mark PEREZ,Tomas) Past History Travel History Traveled to [place] past 21 day No Medical History Any Pertinent Medical History? see below for history Neurological: MIGRAINES EENT: NONE Cardiovascular: NONE Respiratory: asthma Gastrointestinal: NONE Hepatic: NONE Renal: NONE Musculoskeletal: NONE Psychiatric: NONE Endocrine: NONE Blood Disorders: anemia Cancer(s): NONE DIRECT MAIL COORDINATOR/Reproductive: NONE History of MRSA: No History of VRE: No History of CDIFF: No Surgical History Surgical History: cholecystectomy, tubal ligation Psychosocial History Who do you live with Patient and family Services at Home NONE What is your primary language Mauritanian Tobacco Use: Never used ETOH Use: denies use Illicit Drug Use: denies illicit drug use Family History Hx Contributory? No (Kenn HERNANDEZ,Nessa) Review of Systems Review of Systems Constitutional: Reports: no symptoms. Comments Review of systems: See HPI, All other systems negative. Constitutional, no chills fever or weight loss HEENT: No visual changes no sore throat no congestion Cardiovascular: No orthopnea or ankle swelling Skin, no jaundice no rashes Respiratory: No sputum or hemoptysis GI: No nausea no vomiting : No dysuria No hematuria Muscle skeletal: no back pain, no neck pain, Neurologic: No numbness no confusion, NO HEADACHE Psych: No stress anxiety or depression,. Heme/endocrine: No bruising no bleeding no polyuria or polydipsia Immunology: No splenectomy or history of AIDS (Kenn HERNANDEZ,Nessa) Physical Exam Physical Exam General Appearance: well developed/nourished, no apparent distress, alert, awake , comfortable Respiratory: wheezing Comments: Well-developed well-nourished person in no acute distress HEENT: . Pupils equally round and reactive to light and accommodation. Nose is atraumatic. External auditory canal and Tympanic membranes clear. Pharynx normal. No swelling or edema. Clearing secretions without difficulty. Uvula midline. No drooling. Neck: Supple, no lymphadenopathy Back: Nontender, no CVA tenderness. Full range of motion Cardiovascular: Tachycardic rate and regular rhythms no murmurs rubs or gallops, normal JVP Respiratory: Chest nontender. No respiratory distress.diffuse wheezing to auscultation bilaterally Abdomen: Soft, nontender nondistended, no appreciable organomegaly. Normal bowel sounds. No ascites, no rebound or guarding. Extremity: No edema, no calf tenderness to palpation, normal and equal pulses. Neuro: Alert oriented x3 Skin: No appreciable rash on exposed skin, skin is warm and dry. Psych: Mood and affect is normal, memory and judgment is normal. Core Measures ACS in differential dx? Yes CVA/TIA Diagnosis No Sepsis Present: No Sepsis Focused Exam Completed? No (Nessa Valladares) Progress Differential Diagnosis: ALLERGIC REACTION, acs, ASTHMA EXACERBATION Plan of Care: Orders Procedure Date/time Status TROPONIN LEVEL 04/25 129 Active EKG 04/25 129 Active Telemetry/Gyroscopic Instrument Tester 04/24 2109 Active TROPONIN LEVEL 04/24 2109 Complete PARTIAL THROMBOPLASTIN TIME 04/24 2109 Complete PROTHROMBIN TIME 04/24 2109 Complete COMPREHENSIVE METABOLIC PANEL 04/24 2109 Complete CBC WITHOUT DIFFERENTIAL 04/24 2109 Complete EKG 04/24 2102 Active Laboratory Tests 04/24/170: Anion Gap 11, Estimated GFR > 60, BUN/Creatinine Ratio 20.0, Glucose 130 H, Calcium 9.4, Total Bilirubin 0.3, AST 14, ALT 34, Alkaline Phosphatase 52, Troponin I < 0.01, Total Protein 7.4, Albumin 4.1, Globulin 3.3, Albumin/ Globulin Ratio 1.2, PT 13.2 H, INR 1.26 H, APTT 26, CBC w Diff NO MAN DIFF REQ , RBC 5.67 H, MCV 59.8 L, MCH 18.1 L, RDW 22.4 H, MPV 9.8, Gran % 68.9, Lymphocytes % 23.3, Monocytes % 4.1, Eosinophils % 3.5, Basophils % 0.2, Absolute Granulocytes 6.2, Absolute Lymphocytes 2.1, Absolute Monocytes 0.4, Absolute Eosinophils 0.3, Absolute Basophils 0, PUBS MCHC 30.2 L Diagnostic Imaging: Viewed by Me: Radiology Read. Discussed w/RAD: Radiology Read. Radiology Impression: PATIENT: PRIYA HERNDON PRESENT AGE: 37 PATIENT ACCOUNT NO: [id number] : 81 LOCATION: [facility] ORDERING PHYSICIAN: Nessa HERNANDEZ SERVICE DATE: 04/24/17 EXAM TYPE: RAD - XRY-PORTABLE CHEST XRAY EXAMINATION: XR PORTABLE CHEST CLINICAL INFORMATION: Shortness of breath and cough COMPARISON: Chest x-ray 11/13/2016 TECHNIQUE: Portable frontal view of the chest was obtained. 9:33 PM FINDINGS: No significant abnormality is noted involving the heart, lungs, mediastinum, bony thorax or soft tissues. IMPRESSION: Unremarkable examination. DICTATED BY: Bharath Jay MD DATE/TIME DICTATED:04/24/172152 WIRE SAW OPERATOR:REECE DATE/ TIME TRANSCRIBED:04/24/172152 CONFIDENTIAL, DO NOT COPY WITHOUT APPROPRIATE AUTHORIZATION. <Electronically signed in Other Vendor System> SIGNED BY: Bharath Jay MD 04/24/172156 Initial ED EKG: SINUS RHYTHM RATE 80 BPM, BORDERLINE t ABNORMALITIES IN THE ANTERIOR LATERAL LEADS (Kenn HERNANDEZ,Nsesa) Comments: Patient declines 2nd troponin and EKG. (Mark PEREZ,Tomas) Departure Departure Condition: Stable Referrals: Juany PEREZ,Angely De Los Santos (PCP/Family) Additional Instructions: Follow-up with your primary care physician in the next 2-4 days. Return for worsening symptoms or concerns. Take all medications as previously prescribed. Take prednisone taper as prescribed to help with allergic reaction. Take antibiotics to help with BRONCHITIS. Departure Forms: Customer Survey General Discharge Information Prescriptions: Current Visit Scripts Azithromycin 1 DP PO AD #6 TAB 2 the first day followed by 1 for days 2-5 Prednisone 1 TAB PO DAILY #18 TAB 3 TABS PO X 3 DAYS, 2 TABS PO X 3 DAYS, 1 TAB PO X 3 DAYS (Nessa Valladares) Departure Time of Disposition: 2356 Disposition: LEFT AGAINST MEDICAL ADVICE Clinical Impression Primary Impression: Allergic reaction Qualifiers: Encounter type: initial encounter Qualified Code: T78.40XA - Allergy, unspecified, initial encounter Secondary Impressions: Dyspnea Qualifiers: Dyspnea type: unspecified Qualified Code: R06.00 - Dyspnea, unspecified PA/DAIRY SCIENCE TEACHER Co-Sign Statement Statement: ED Attending supervision documentation- x I saw and evaluated the patient. I have also reviewed all the pertinent lab results and diagnostic results. I agree with the findings and the plan of care as documented in the PA's/DAIRY SCIENCE TEACHER's documentation. [] I have reviewed the ED Record and agree with the PA's/DAIRY SCIENCE TEACHER's documentation. [] Additions or exceptions (if any) to the PAs/DAIRY SCIENCE TEACHER's note and plan are summarized below: [] (Mark PEREZ,Tomas) Critical Care Note Critical Care Note Critical Care Time: non-applicable (Nessa Valladares)
--- NOTE | 2017-04-24 21:57 | RADIOLOGY REPORT ---
EXAMINATION: XR PORTABLE CHEST CLINICAL INFORMATION: Shortness of breath and cough COMPARISON: Chest x-ray 11/13/2016 TECHNIQUE: Portable frontal view of the chest was obtained. 9:33 PM FINDINGS: No significant abnormality is noted involving the heart, lungs, mediastinum, bony thorax or soft tissues. IMPRESSION: Unremarkable examination.
[2017-04-24 22:18] LABS: ABSOLUTE BASOPHIL COUNT 0 /CUMM (0.0-0.2); ABSOLUTE EOSINOPHIL COUNT 0.3 /CUMM (0.0-0.7); ABSOLUTE GRANULOCYTE CT 6.2 /CUMM (1.4-6.5); ABSOLUTE LYMPH COUNT 2.1 /CUMM (1.2-3.4); ABSOLUTE MONOCYTE COUNT 0.4 /CUMM (0.10-0.60); BASOPHIL % 0.2 % (0.0-2.0); EOSINOPHIL % 3.5 % (0-5); GRANULOCYTE % 68.9 % (42.2-75.2); HEMATOCRIT 33.9 % (37-47); MEAN CORPUSCULAR HGB 18.1 PG (27.0-31.0); MEAN CORPUSCULAR HGB CONC 30.2 G/DL (33.0-37.0); MEAN PLATELET VOLUME 9.8 FL (7.4-10.4); RBC DISTRIBUTION WIDTH 22.4 % (11.5-14.5); RED BLOOD CELL CT 5.67 /CUMM (4.20-5.40)
[2017-04-24 22:22] LABS: PT 13.2 SEC (9.4-12.5); PTT 26 SEC (25-37)
[2017-04-24 22:38] LABS: MEAN CORPUSCULAR VOLUME 59.8 FL (81.0-99.0); PLATELET COUNT 155 /CUMM (130-400)
[2017-04-24] MEDS ORDERED: AZITHROMYCIN250 M1 PO (22:40)
[2017-04-24] MEDS ORDERED: PREDNISONE10 M2 PO (22:40)
[2017-04-24 22:56] VITALS: BP 118/65
== END 2017-04-25 00:18 | disposition left against medical advice (07) ==
LOC: ERH 21:02
PROVIDERS: Physician Assistant
DX: T78.40XA Allergy, unspecified, initial encounter (principal); R06.00 Dyspnea, unspecified; X58.XXXA Exposure to other specified factors, initial encounter; Y93.9 Activity, unspecified; Y92.9 Unspecified place or not applicable
CPT/HCPCS: 71045; 93005; 93010

== ENCOUNTER 2017-05-12 21:28 | Inpatient (IN) | payer OTHER ==
[~2017-05-12] VITALS: Ht 149.9 cm; Wt 71.7 kg
[~2017-05-12 21:28] MED LIST changes: +ALBUTEROL2.5 MG/3 M INH/SOL; +ATORVASTATIN CA20 M1 PO; +AZITHROMYCIN250 M1 PO; +EPINEPHRIN0.3 MG/0.1 IM; +METOPROLOL TART25 M1 PO; +PREDNISONE10 M2 PO
--- NOTE | 2017-05-12 21:38 | ED DYSPNEA/ASTHMA COMPLAINT ---
History of Present Illness General Chief Complaint: Dyspnea (COPD, CHF, Other) Stated Complaint: BIBA RESP ARREST? Source: patient, EMS Exam Limitations: clinical condition Vital Signs & Intake/Output Vital Signs & Intake/Output Vital Signs Date Time Temp Pulse Resp B/P B/P Pulse O2 O2 Flow FiO2 Mean Ox Delivery Rate 05/13 0231 98.0 101 20 112/68 100 Nasal 2.0L Cannula 05/13 0100 103 100 05/13 0048 103 20 115/63 100 BIPAP 05/12 2327 98 BIPAP 35% 05/12 2319 98 BIPAP 35% 05/12 2303 98.2 100 20 114/62 100 BIPAP 05/12 2247 98 BIPAP 35% 05/12 2212 98 05/12 2203 Ventilator 100% 05/12 2144 97.6 120 26 144/84 100 BIPAP ED Intake and Output 05/13 0000 05/12 1200 Intake Total Output Total Balance Patient 175 lb Weight Weight Estimated Measurement Method Allergies Coded Allergies: Iodinated Contrast- Oral and IV Dye (IODINATED CONTRAST MEDIA - ORAL AND) ( Severe, ANAPHYLAXIS 04/24/17) iodine (Severe, ANAPHYLAXIS 04/24/17) shellfish derived (Severe, ANAPHYLAXIS 04/24/17) Reconcile Medications Albuterol Sulfate (Proair Hfa) 90 MCG HFA.AER.AD 2 PUF INH PRN ASTHMA ( Reported) Albuterol Sulfate 2.5 MG/3 ML (0.083 %) VIAL.NEB 1 Vial INH/NEDA Q4P PRN ASTHMA (Reported) Atorvastatin Calcium 20 MG TABLET 1 TAB PO DAILY CHOLESTEROL (Reported) Budesonide/Formoterol Fumarate (Symbicort 160-4.5 Mcg Inhaler) 160 MCG-4.5 MCG/ ACTUATION HFA.AER.AD 2 PUF INH BID BREATHING PROBLEMS (Reported) Epinephrine 0.3 MG/0.3 ML AUTO.INJCT 0.3 MG IM AD PRN ALLERGIC REACTION ( Reported) Epinephrine (Epipen 2-Cristobal) 0.3 MG/0.3 ML AUTO.INJCT 1 INJ IM X1 PRN SEVERE ALLERGIC REACTION FOR SEVERE ALLERGIC REACTIONS AND CALL 911 Famotidine 40 MG TABLET 1 TAB PO DAILY GI (Reported) Ibuprofen 800 MG TABLET 1 TAB PO PRN PAIN/INFLAMMATION (Reported) Metoprolol Tartrate 25 MG TABLET 1 TAB PO DAILY HEART/BP (Reported) Montelukast Sodium 10 MG TABLET 1 TAB PO DAILY ALLERGIES (Reported) Prednisone 10 MG TABLET 1 TAB PO AD ASTHMA TAKE 4 TAB DAILY X 3 DAYS TAKE 3 TAB DAILY X 4 DAYS TAKE 2 TAB DAILY X 4 DAYS TAKE 1 TAB DAILY X 5 DAYS Topiramate 25 MG TABLET 1 TAB PO BID MIGRAINES (Reported) Triage Nurses Notes Reviewed? yes Onset: Abrupt Duration: minute(s): Timing: single episode today Severity: moderate Activities at Onset: none Prior Episodes/Possible Cause: occasional episodes Associated Symptoms: wheezing, dyspnea HPI: 37 YO WOMAN h/o asthma, allergic reactions, presents with dyspnea, impending respiratory arrest. Per the medics, she developed dyspnea this evening, was using her albuterol without effect. She was sitting in the front entryway of her home. Shortly after the medics arrived, she stopped breathing. She received bag mask ventilation en route where she resumed spontaneous respirations, but remained lethargic. Per the family, she has had reactions to shellfish. Tonight the family ate shellfish. She ate "regular fish." Her symptoms began soon thereafter. The onset of symptoms to near respiratory arrest was 20 minutes. Past History Travel History Traveled to [place] past 21 day No Medical History Any Pertinent Medical History? see below for history Neurological: MIGRAINES EENT: NONE Cardiovascular: NONE Respiratory: asthma Gastrointestinal: NONE Hepatic: NONE Renal: NONE Musculoskeletal: NONE Psychiatric: NONE Endocrine: NONE Blood Disorders: anemia Cancer(s): NONE SCOUTS/Reproductive: NONE History of MRSA: No History of VRE: No History of CDIFF: No Surgical History Surgical History: cholecystectomy, tubal ligation Psychosocial History Who do you live with Patient and family Services at Home NONE What is your primary language Yi Family History Hx Contributory? No Review of Systems Review of Systems Constitutional: Reports: no symptoms. EENTM: Reports: no symptoms. Respiratory: Reports: no symptoms. Cardiovascular: Reports: no symptoms. GI: Reports: no symptoms. Genitourinary: Reports: no symptoms. Musculoskeletal: Reports: no symptoms. Skin: Reports: no symptoms. Neurological/Psychological: Reports: no symptoms. Hematologic/Endocrine: Reports: no symptoms. Immunologic/Allergic: Reports: no symptoms. All Other Systems: Reviewed and Negative Physical Exam Physical Exam General Appearance: well developed/nourished, severe distress Head: atraumatic, normal appearance Eyes: Bilateral: normal appearance. Ears, Nose, Throat: normal pharynx, normal ENT inspection Neck: normal inspection, supple, full range of motion Respiratory: wheezing Cardiovascular: regular rate/rhythm Gastrointestinal: normal bowel sounds, soft, non-tender Extremities: normal inspection, normal capillary refill, normal range of motion, no edema Neurologic/Psych: no motor/sensory deficits, awake, alert, oriented x 3 Skin: intact, normal color, warm/dry Core Measures ACS in differential dx? No CVA/TIA Diagnosis No Sepsis Present: No Sepsis Focused Exam Completed? No Progress Differential Diagnosis: asthma, bronchitis, CHF, COPD, allergic reaction Plan of Care: Orders Procedure Date/time Status Nothing by Mouth 05/13 B Active TROPONIN LEVEL 05/13 0900 Active EKG 05/13 0900 Active TROPONIN LEVEL 05/13 0300 Active LACTIC ACID 05/13 0300 Active EKG 05/13 0300 Active ARTERIAL BLOOD GAS (GEN) 05/13 0200 Complete OXYGEN SETUP (GEN) 05/13 0103 Complete TRC EVALUATION (GEN) 05/13 0052 Active Pathway - chart 05/13 0052 Active House Staff 05/13 0052 Active Patient Data 05/13 0052 Active Code Status 05/13 0052 Active LACTIC ACID 05/13 0039 Complete Lab Add-on Test 05/13 UNK Active VTE Mechanical Prophylaxis 05/13 UNK Active Vital Signs 05/13 UNK Active Intake & Output 05/13 UNK Active Hemoccult 05/13 UNK Active Patient Data 05/12 2334 Active Admit to inpatient 05/12 2311 Active Intake & Output 05/12 2205 Active RAPID VIRAL INFLUENZA A 05/12 2155 Complete TOTAL IRON BINDING CAPACITY 05/12 2141 Active RETICULOCYTE COUNT 05/12 2141 Active FERRITIN 05/12 2141 Active SERUM IRON 05/12 2141 Active ETHANOL 05/12 2141 Active D-DIMER 05/12 2140 Complete URINE DRUGS OF ABUSE 05/12 2138 Active URINALYSIS 05/12 2138 Active ARTERIAL BLOOD GAS (GEN) 05/12 2137 Complete TROPONIN LEVEL 05/12 2137 Active LIPASE 05/12 2137 Active LACTIC ACID 05/12 2137 Active HEPATIC FUNCTION PANEL 05/12 2137 Active HUMAN BETA HCG SCREEN 05/12 2137 Active CBC WITHOUT DIFFERENTIAL 05/12 2137 Active BASIC METABOLIC PANEL 05/12 2137 Active AMYLASE 05/12 2137 Active EKG 05/12 2137 Active BIPAP 05/12 UNK Complete Current Medications Sig/Radha Start time Last Medication Dose Stop Time Status Admin Atorvastatin Calcium 20 MG 1700 05/13 1700 AC (Lipitor) Enoxaparin Sodium 40 MG DAILY 05/13 1000 AC (Lovenox) Famotidine 20 MG BID 05/13 1000 AC (Pepcid) Diphenhydramine HCl 50 MG Q8 05/13 0600 AC (Benadryl) Methylprednisolone 40 MG Q6 05/13 0600 AC (Solumedrol) Sodium Chloride 1,000 ML Q6H 05/13 0100 AC 05/13 (Normal Saline 0.9%) 0150 Acetaminophen 650 MG Q6P PRN 05/13 0045 AC (Tylenol) Ibuprofen 600 MG Q6P PRN 05/13 0045 AC (Motrin) Ondansetron HCl 4 MG Q6P PRN 05/13 0045 AC (Zofran) Oxycodone/ 2 TAB Q6P PRN 05/13 0045 AC Acetaminophen (Percocet) Laboratory Tests 05/13/17 0300: pH 7.40, pCO2 32 L, pO2 117 H, HCO3 19 L, ABG O2 Sat (Measured) 97.0, P-50 ( Temp Corrected) Y, Carboxyhemoglobin 0.3 L, O2 Concentration % 2 LPM, Temperature 99.2, O2 Delivery Method N/C, Phlebotomy Draw Site LEFT RADIAL 05/13/17 0257: Lactic Acid Pending, Troponin I Pending 05/13/17 0040: Lactic Acid 2.6 H 05/12/17 2205: pH 7.35, pCO2 36, pO2 193 H, HCO3 20 L, ABG O2 Sat (Measured) 99.0, Carboxyhemoglobin 0.3 L, O2 Concentration % 35, Respiration Rate 20, O2 Delivery Method BIPAP, Vent Mode ST, Expiratory Pressure 6, Inspiratory Pressure 12, Phlebotomy Draw Site LEFT RADIAL 05/12/17 2141: Anion Gap 17 H, Estimated GFR > 60, BUN/Creatinine Ratio 17.0, Glucose 219 H, Lactic Acid 5.7 H, Calcium 8.6, Iron Pending, TIBC Pending, Ferritin Pending, Total Bilirubin 0.1 L, Direct Bilirubin 0.1, AST 16, ALT 37, Alkaline Phosphatase 58, Troponin I < 0.01, Total Protein 7.3, Albumin 4.1, Amylase 88, Lipase 161, Total Beta HCG NEGATIVE, D-Dimer High Sensitivty < 200, CBC w Diff MAN DIFF ORDERED, RBC 5.32, MCV 60.2 L, MCH 18.3 L, RDW 22.5 H, MPV 9.6, Gran % 48.3, Lymphocytes % 38.2, Monocytes % 8.3, Eosinophils % 4.9, Basophils % 0.3, Absolute Granulocytes 10.3 H, Segmented Neutrophils 37 L, Band Neutrophils 2, Absolute Lymphocytes 8.1 H, Lymphocytes 43, Monocytes 11 H, Absolute Monocytes 1.8 H, Eosinophils 5, Absolute Eosinophils 1.1, Absolute Basophils 0.1, Metamyelocytes 2 H, Platelet Estimate ADEQUATE, Polychromasia 1+, Hypochromic- Microcytic 1+, Anisocytosis 3+, Microcytic Cells 3+, PUBS MCHC 30.4 L, Retic Count Pending, Serum Alcohol < 10.0 05/12/172138: Lactic Acid Cancelled, Serum Alcohol Cancelled Microbiology 05/12 2233 NASOPHARYN: Influenza Virus A & B Rapid Smear - COMP Initial ED EKG: sinus tach, no acute changes. Departure Departure Disposition: STILL A PATIENT Condition: Stable Clinical Impression Primary Impression: Respiratory failure Secondary Impressions: Anaphylaxis, Lactic acidosis, Wheezing Referrals: Juany PEREZ,Angely De Los Santos (PCP/Family) Departure Forms: Customer Survey General Discharge Information Prescriptions: Current Visit Scripts Epinephrine (Epipen 2-Cristobal) 1 INJ IM X1 PRN SEVERE ALLERGIC REACTION #1 KIT FOR SEVERE ALLERGIC REACTIONS AND CALL 911 Admission Note Spoke With: Abner Chatman MD Documentation of Exam: Documentation of any treatments & extenuating circumstances including Concerns Regarding Discharge (functional status, medication knowledge or non-compliance, living conditions, etc.) that warrant an admission rather than observation: pt with respiratory failure, most likely due to anaphylaxis due to the rapid onset and proximity to eating fish. Also, could have been asthma exacerbation. Pt stabilized after sub cut epi, steroids, bipap.... pt merits icu level care, pulm consult in am. Critical Care Note Critical Care Note Critical Care Time: 30-74 min Comments: pt required [id number] upon arrival, subcut epi, continuous nebs, iv steroids/magnesium.... pt stabilized on bipap.
[2017-05-12 21:53] LABS: ABSOLUTE BASOPHIL COUNT 0.1 /CUMM (0.0-0.2); ABSOLUTE EOSINOPHIL COUNT 1.1 /CUMM (0.0-0.7); ABSOLUTE GRANULOCYTE CT 10.3 /CUMM (1.4-6.5); ABSOLUTE LYMPH COUNT 8.1 /CUMM (1.2-3.4); ABSOLUTE MONOCYTE COUNT 1.8 /CUMM (0.10-0.60); BASOPHIL % 0.3 % (0.0-2.0); EOSINOPHIL % 4.9 % (0-5); GRANULOCYTE % 48.3 % (42.2-75.2); MEAN CORPUSCULAR HGB 18.3 PG (27.0-31.0); MEAN CORPUSCULAR HGB CONC 30.4 G/DL (33.0-37.0); MEAN CORPUSCULAR VOLUME 60.2 FL (81.0-99.0); RBC DISTRIBUTION WIDTH 22.5 % (11.5-14.5); RED BLOOD CELL CT 5.32 /CUMM (4.20-5.40); WHITE BLOOD CELL COUNT 21.3 /CUMM (4.8-10.8)
[2017-05-12 22:22] LABS: PLATELET COUNT 322 /CUMM (130-400)
[2017-05-12 22:23] LABS: MEAN PLATELET VOLUME 9.6 FL (7.4-10.4)
[2017-05-12] MEDS ORDERED: EPIPEN 2-P0.3 MG/0.3 IM (22:25)
--- NOTE | 2017-05-12 23:00 | RADIOLOGY REPORT ---
EXAMINATION: XR PORTABLE CHEST CLINICAL INFORMATION: Dyspnea COMPARISON: Prior chest x-rays, the most recent on 05/05/2017 TECHNIQUE: Portable frontal view of the chest was obtained. FINDINGS: The cardiomediastinal silhouette and pulmonary vascularity are normal. The lungs are clear. No pleural effusion. No pneumothorax. The visualized bones are unremarkable. IMPRESSION: No acute cardiopulmonary finding.
--- NOTE | 2017-05-13 00:47 | History & Physical ---
Francesca PEREZ,[facility] 05/13/17 0046: General Information and HPI MD Statement: I have seen and personally examined PRIYA SORIANO and documented this H&P. The patient is a 37 year old F who presented with a patient stated chief complaint of [respiratory distress]. Source of Information: patient, family Exam Limitations: no limitations History of Present Illness: Ms. Soriano is a 37-year-old lady with past medical history significant for asthma, migraine, GERD, chronic anemia and recently admitted to [facility] , October 2016, for unstable angina who was brought in by ambulance for an episode of severe respiratory distress. According to the patient, about 3 minutes after eating dinner(white rice, codfish and salmon), she started feeling nauseous, lightheaded and short of breath. She went to use her albuterol inhaler without any relief. Tried to take hot shower bath(usually helps her symptoms) but felt more short of breath and told her daughter to call 911 as she felt she was about to pass out. The next thing she remembers is opening her eyes in the hospital. States she has had some upper respiratory infection past 3 weeks, completed a course of Z-Cristobal and continues to be on prednisone taper for that. She continues to have severe cough. She has been using the albuterol inhaler more frequently for the past 3 weeks(almost 7-8 times per day in 2 times per night). Also endorses central chest pain with coughing, 6-7/10 in intensity, that radiates to her left shoulder and back, relieved with Tylenol and ibuprofen. She also reports palpitations(heart rate of 130) and diaphoresis just with walking couple of steps, that has been worsening for the past 2-3 days. Reports sick contact at home, 4-year-old baby . Sick with flulike symptoms. She denies any fever, night sweats, recent change in perfumes/detergents/infiltrates/medications or use of herbal supplements. Also denies the use of oxygen/CPAP/BiPAP at home, any previous similar episodes, hospitalization for asthma exacerbation, or intubation in the past. Allergies/Medications Allergies: Coded Allergies: Iodinated Contrast- Oral and IV Dye (IODINATED CONTRAST MEDIA - ORAL AND) ( Severe, ANAPHYLAXIS 04/24/17) iodine (Severe, ANAPHYLAXIS 04/24/17) shellfish derived (Severe, ANAPHYLAXIS 04/24/17) Home Med list Albuterol Sulfate (Proair Hfa) 90 MCG HFA.AER.AD 2 PUF INH PRN ASTHMA ( Reported) Albuterol Sulfate 2.5 MG/3 ML (0.083 %) VIAL.NEB 1 Vial INH/NEDA Q4P PRN ASTHMA (Reported) Atorvastatin Calcium 20 MG TABLET 1 TAB PO DAILY CHOLESTEROL (Reported) Budesonide/Formoterol Fumarate (Symbicort 160-4.5 Mcg Inhaler) 160 MCG-4.5 MCG/ ACTUATION HFA.AER.AD 2 PUF INH BID BREATHING PROBLEMS (Reported) Epinephrine 0.3 MG/0.3 ML AUTO.INJCT 0.3 MG IM AD PRN ALLERGIC REACTION ( Reported) Epinephrine (Epipen 2-Cristobal) 0.3 MG/0.3 ML AUTO.INJCT 1 INJ IM X1 PRN SEVERE ALLERGIC REACTION FOR SEVERE ALLERGIC REACTIONS AND CALL 911 Famotidine 40 MG TABLET 1 TAB PO DAILY GI (Reported) Ibuprofen 800 MG TABLET 1 TAB PO PRN PAIN/INFLAMMATION (Reported) Metoprolol Tartrate 25 MG TABLET 1 TAB PO DAILY HEART/BP (Reported) Montelukast Sodium 10 MG TABLET 1 TAB PO DAILY ALLERGIES (Reported) Prednisone 10 MG TABLET 1 TAB PO AD ASTHMA TAKE 4 TAB DAILY X 3 DAYS TAKE 3 TAB DAILY X 4 DAYS TAKE 2 TAB DAILY X 4 DAYS TAKE 1 TAB DAILY X 5 DAYS Topiramate 25 MG TABLET 1 TAB PO BID MIGRAINES (Reported) Past History Travel History Traveled to [place] past 21 day No Medical History Neurological: MIGRAINES EENT: NONE Cardiovascular: NONE Respiratory: asthma Gastrointestinal: GERD Hepatic: NONE Renal: NONE Musculoskeletal: NONE Psychiatric: NONE Endocrine: NONE Blood Disorders: anemia Cancer(s): NONE 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 Home Services at Home: NONE Smoking Status: Never Smoked ETOH Use: denies use Illicit Drug Use: denies illicit drug use Functional Ability ADLs Independent: dressing, eating, toileting, bathing. Ambulation: independent IADLs Independent: shopping, housework, finances, food prep, telephone, transportation , medication admin. Review of Systems Review of Systems Constitutional: Reports: no symptoms. EENTM: Reports: no symptoms. Cardiovascular: Reports: chest pain, palpitations. Respiratory: Reports: cough, short of breath. GI: Reports: no symptoms. Genitourinary: Reports: no symptoms. Musculoskeletal: Reports: no symptoms. Skin: Reports: no symptoms. Neurological/Psychological: Reports: no symptoms. Hematologic/Endocrine: Reports: no symptoms. Immunologic/Allergic: Reports: no symptoms. All Other Systems: Reviewed and Negative Exam & Diagnostic Data Last 24 Hrs of Vital Signs/I&O Vital Signs Date Time Temp Pulse Resp B/P B/P Pulse O2 O2 Flow FiO2 Mean Ox Delivery Rate 05/13 0231 98.0 101 20 112/68 100 Nasal 2.0L Cannula 05/13 0100 103 100 05/13 0048 103 20 115/63 100 BIPAP 05/12 2327 98 BIPAP 35% 05/12 2319 98 BIPAP 35% 05/12 2303 98.2 100 20 114/62 100 BIPAP 05/12 2247 98 BIPAP 35% 05/12 2212 98 05/12 2203 Ventilator 100% 05/12 2144 97.6 120 26 144/84 100 BIPAP Intake & Output 05/13 0800 05/13 0000 05/12 1600 Intake Total Output Total Balance Patient 175 lb Weight Weight Estimated Measurement Method Physical Exam General Appearance Alert, Oriented X3, Cooperative, morbidly obese Skin No Rashes, No Breakdown HEENT Atraumatic, PERRLA, EOMI Cardiovascular Regular Rate, Normal S1, Normal S2, No Murmurs Lungs Clear to Auscultation, decreased breath sounds bilaterally Abdomen Normal Bowel Sounds, Soft, No Tenderness Neurological Normal Speech, Strength at 5/5 X4 Ext, Normal Tone, Sensation Intact, Cranial Nerves 3-12 NL Extremities No Clubbing, No Cyanosis, No Edema, Normal Pulses Last 24 Hrs of Labs/Yoshi: Laboratory Tests 05/13/17 0300: pH 7.40, pCO2 32 L, pO2 117 H, HCO3 19 L, ABG O2 Sat (Measured) 97.0, P-50 ( Temp Corrected) Y, Carboxyhemoglobin 0.3 L, O2 Concentration % 2 LPM, Temperature 99.2, O2 Delivery Method N/C, Phlebotomy Draw Site LEFT RADIAL 05/13/17 0257: Lactic Acid Pending, Troponin I Pending 05/13/17 0040: Lactic Acid 2.6 H 05/12/17 2205: pH 7.35, pCO2 36, pO2 193 H, HCO3 20 L, ABG O2 Sat (Measured) 99.0, Carboxyhemoglobin 0.3 L, O2 Concentration % 35, Respiration Rate 20, O2 Delivery Method BIPAP, Vent Mode ST, Expiratory Pressure 6, Inspiratory Pressure 12, Phlebotomy Draw Site LEFT RADIAL 05/12/17 2141: Anion Gap 17 H, Estimated GFR > 60, BUN/Creatinine Ratio 17.0, Glucose 219 H, Lactic Acid 5.7 H, Calcium 8.6, Iron Pending, TIBC Pending, Ferritin Pending, Total Bilirubin 0.1 L, Direct Bilirubin 0.1, AST 16, ALT 37, Alkaline Phosphatase 58, Troponin I < 0.01, Total Protein 7.3, Albumin 4.1, Amylase 88, Lipase 161, Total Beta HCG NEGATIVE, D-Dimer High Sensitivty < 200, CBC w Diff MAN DIFF ORDERED, RBC 5.32, MCV 60.2 L, MCH 18.3 L, RDW 22.5 H, MPV 9.6, Gran % 48.3, Lymphocytes % 38.2, Monocytes % 8.3, Eosinophils % 4.9, Basophils % 0.3, Absolute Granulocytes 10.3 H, Segmented Neutrophils 37 L, Band Neutrophils 2, Absolute Lymphocytes 8.1 H, Lymphocytes 43, Monocytes 11 H, Absolute Monocytes 1.8 H, Eosinophils 5, Absolute Eosinophils 1.1, Absolute Basophils 0.1, Metamyelocytes 2 H, Platelet Estimate ADEQUATE, Polychromasia 1+, Hypochromic- Microcytic 1+, Anisocytosis 3+, Microcytic Cells 3+, PUBS MCHC 30.4 L, Retic Count Pending, Serum Alcohol < 10.0 05/12/172138: Lactic Acid Cancelled, Serum Alcohol Cancelled Microbiology 05/12 2233 NASOPHARYN: Influenza Virus A & B Rapid Smear - COMP Diagnostic Data EKG Results Sinus Tachycardia Heart rate 116 CXR Results IMPRESSION: No acute cardiopulmonary finding. Assessment/Plan Assessment: Ms. Soriano is a 37-year-old lady with past medical history significant for asthma, migraine, GERD, chronic anemia and recently admitted to [facility] , October 2016, for unstable angina who was brought in by ambulance for an episode of severe respiratory distress. A/P 1. Severe respiratory distress; Could be Anaphylaxis(patient had respiratory distress 3 minutes after eating codfish), asthma exacerbation ( given recent upper respiratory tract infection, and increase use of inhalers recently), or PE (patient reports pleuritic chest pain, palpitations cigarettes and shortness of breath). - We will admit the patient to ICU - Patient was started on BiPAP on arrival to the ER, later switched to nasal cannula(normal PCO2 on ABG). We'll continue supplemental oxygen as needed. - IV Solu-Medrol 40 mg every 6 hours. - IV Benadryl every 8 hours - TRC nebs scheduled and as needed - Troponins and EKG to rule out ACS - V/Q scan to r/o PE( CTA cannot be done as the patient is allergic to IV contrast) 2. Lactic Acidosis with AG 17; Unclear etiology - Continue gentle IV Hydration - Trend Lactic acid 3. Chronic Anemia; with MCV of 60.0. - f/u iron studies. - f/u stool guaiac. DVT Prophylaxis; IV heparin Patient is full Code - As Ranked By This Provider Problem List: 1. Asthma 2. Respiration slowed or stopped Core Measures/Misc (01/06) Acute Coronary Syndrome ACS Diagnosis: No Congestive Heart Failure Congestive Heart Failure Diagnosis No Cerebrovascular Accident CVA/TIA Diagnosis: No VTE (View Protocol) VTE Risk Factors Age>40 No Mechanical VTE Prophylaxis d/t N/A MechProphylax Ordered No VTE Pharm Prophylaxis d/t NA PharmProphylax ordered Sepsis (View protocol) Sepsis Present: No Chaim Madera MD 05/13/17 0225: Resident Review Statement Resident Statement: examined this patient, discussed with international banker, agreed with international banker, discussed with family Other Findings: This is a 37-year-old female with past medical history significant for hypertension, anemia, asthma, migraines, and several life-threatening allergies who was brought in by ambulance for severe respiratory distress. When I saw patient, she was on BiPAP but alert and oriented 3 and able to give me most of the history. Per patient, today she was eating dinner of white rice and codfish and approximately 3 minutes after finishing dinner she started to feel tachypnic and short of breath. She went to her bathroom to use a nebulizer machine but found that it was not helping. She tried to get in the shower hoping it would help her respiratory distress but when her SOB worsened and every other breath became significantly labored she asked her daughter to call 911 "because I could tell that I was going to stop breathing and ." When the police arrived she remembers feeling faint and dizzy. Her last clear memory is of sitting on the floor of her bathroom with aid of precinct [place] police sergeant to use her nebulizer. Soon after, the EMS arrived and found her in severe respiratory distress. Next thing she remembers is opening her eyes at [facility]. Patient has never had a similar episode before. She does have EpiPen at home but did not use it today. She took 40 mg of prednisone today with no change in her symptoms. She states that she has had a URI for the last 3 weeks. She has been using her albuterol about 9-10 times a day and at least twice a night. She has completed 2 steroid tapers recently and a course of Z-Cristobal about 3 weeks ago. Her symptoms seem to have worsened, particularly in the last 3 days and patient notes chest pain from coughing. She rates the chest pain at 6-7 out of 10 and states its in her left side and radiates to her left shoulder and back. She states it does improve with [id number] pain medication, but she has noted that when she ambulates she has worsening tachypnea and her heart rate goes to 130s to 140s with some chest discomfort. She endorses sick contacts inform of her baby who has cough and wheezing. 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 She got the flu shot. Denies any drinking, smoking or IV drug abuse. Family history significant for alpha thalassemia in mother. Allergies are significant for anaphylaxis secondary to iodine, shellfish and contrast. She also suspects that she has significant triggering of asthma with dust and dogs. She states about one year ago she had an episode of SOB and was started on Heparin drip with c/o PE, but apparently her w/up was negative for PE. Per EMS: On their arrival her RR was 34 and she was assisted via BVM. In ED immediately medicated and placed on bipap. Vitals: MAXIMUM TEMPERATURE 98.2, heart rate between 100-120, respiratory rate 20-26, blood pressure 144/84 to 114/62, satting 98-100% on room air. Physical Exam HEENT: Pupils equal and reactive. EOMI. diaphoretic Cardiovascular: Nml s1/s2; no murmurs. tachycardic Skin: no erythema, rash or wounds present. could not appreciate any urticaria. Respiratory: Diminished breath sounds throughout. There is some slight crackles in LLL but no wheezes or rhonchi anywhere. GI: BSX4, No tenderness on palpation. EXT: No skin changes in bilat LE. No edema. + pulses. Assessment: This is a 37-year-old female past medical history significant for asthma, allergies, migraine, anemia, hypertension, who comes in for chief complaint of severe respiratory distress. Differential diagnosis includes: Anaphylaxis, severe asthma exacerbation, bronchospasm and pulmonary embolus. Given that her symptoms started immediately after ingestion of codfish possible she had anaphylaxis. However she states that she's eaten it before without any issues. Her physical exam and presentation are bit puzzling however as she has no wheezing, no evidence of airway edema, urticaria, and his symptoms resolved relatively immediately with little sequelae. She does have history of severe asthma and it has been worse recently given URI. Lastly, patient's description of pleuritic chest pain, tachycardia and syncope is concerning for a pulmonary embolus. However, her d-dimer is negative, but given high suspicison would like to r/o with CTA but cannot do so given her anaphylactic allergy to contrast. PLAN: 1. Respiratory distress: Patient was on BiPAP with settings 35%, respiratory rate 20, IPAP 12, EPAP 6. She seemed to do well, and we transitioned her to nasal cannula. See above for differential. Her labs are notable for lactic acid of 5.7, normal chest x-ray, and a negative flu swab. Her d-dimer was negative. Supposedly her respiratory distress improved after administration of Narcan. * Continue famotidine IV twice a day * Continue IV Benadryl 50 milligrams every 8 * Urgent CT chest; depending on results will consider starting patient on IV heparin presumptively to treat for pulmonary embolus * VQ scan in a.m. * IV Solu-Medrol 40 mg every 6 * ABG 1 hour after transitioning to nasal cannula * Troponin and EKG now and 6 hours later * TRC * Consider echo in a.m. * U tox * UA 2. Leukocytosis: Patient has white count of 21.3 with 2 bands. Unsure of significance as she is on Solu-Medrol and took 40 mg of prednisone in a.m. * Monitor CBC 3. Lactic acidosis: Patient has lactic acid 5.7, this is likely responsible for her gap of 17. * Continued trend lactic acid * IVF 4. Anemia: Patient has hemoglobin 9.7 with MCV 60. Her mother has history of alpha thalassemia. Likely patient does have alpha thal, but unsure where she is losing blood. * Monitor C BC * Stool guaiac * Iron studies Full code Nothing by mouth- c/o laryngeal edema and anaphylaxis. Reevaluate in a.m. Chemical DVT prophylaxis Performed stool guiac on pt. It was indeterminate. Regardless, started heparin drip. Abner Chatman 05/13/17 0543: Attending MD Review Statement Attending Statement Attending MD Statement: examined this patient, discuss w/resident/PA/SAMPLING EXPERT, agreed w/resident/PA/SAMPLING EXPERT, discussed with family, reviewed EMR data (avail), reviewed images, amended to note Attending Assessment/Plan: CC: Loss of consciousness, severe shortness of breath PMH: Asthma, migraine, GERD, anemia Patient has multiple allergies including shellfish. This evening patient was cooking fish for her family but it was not shellfish when within 3 minutes they noticed a severe shortness of breath, lightheadedness, usually hot water bath help her in such kind of situation and nebs but both did not help and she passed out while in shower. Immediately before that she had told her daughter to call EMS. Last she remembers seeing purchasing department clerk coming in. EMS arrived and started bag mask ventilation, gave her epinephrine. In ER patient was continued to have bag mask ventilation, given 0.3 mg epinephrine, Narcan, Solu-Medrol, magnesium with which she became more alert and responsive, started on BiPAP. Initial ABG 7.35/ 36/193/20 on BiPAP. When we examined the patient I could not hear any audible wheezing, decreased air entry, significantly tachycardic, no edema no crackles. Of note patient has been also sick since last 3 weeks for upper respiratory symptoms and since last 3 days she has been complaining of chest pain going to her left shoulder and to back associated with palpitations, worse with deep breathing. Has mild leukocytosis, lactic acidosis of 5.7. All her symptoms can be secondary to asthma exacerbation or severe bronchospasm caused by allergy to fish but at the same time patient has been persistently tachycardic throughout the night, without significant wheezes on auscultation given her acute illness of such a short duration and respiratory arrest, pulmonary embolism is one of the differentials. Patient has contrast allergy. Empirically started on heparin, will need a VQ scan. Patient does not have any apparent angioedema, leg swelling , skin rashes or hives, blood pressure has been stable + Bronchospasm secondary to fish allergy + Asthma exacerbation + Rule out pulmonary embolism - Admit to ICU - Continuous pulse ox - DC BiPAP, continue O2 by nasal cannula - Repeat ABG in one hour and in the a.m. - IV methylprednisolone 40 mg every 6 hours - IV Benadryl every 8 hours - Scheduled and when necessary nebulization treatment - Continue gentle hydration - VQ scan in a.m. - Continue heparin drip - Serial troponin and EKGs - Trend lactate - Continue rest of the home medications - Adequate pain control - DVT prophylaxis
--- NOTE | 2017-05-13 03:12 | CT SCAN REPORT ---
EXAMINATION: CT CHEST WITHOUT CONTRAST CLINICAL INFORMATION: Chest pain and respiratory distress COMPARISON: 11/15/2016 TECHNIQUE: Multidetector volumetric CT imaging of the chest was done. Axial MIP volume rendering provided. Sagittal and coronal reformatted images were obtained. DLP: 302.25 mGy-cm FINDINGS: LUNGS: Parenchymal detail is somewhat limited by respiratory motion artifact. No regions of consolidation bilaterally. There is minimal subsegmental atelectasis in the basilar right lower lobe. A calcified granuloma is noted in the posterior right upper lobe. MEDIASTINUM: The visualized thyroid gland is unremarkable. There are subcentimeter mediastinal lymph nodes within the range of normal variation. Cardiac size is within normal limits; no pericardial effusion. Assessment for aortic dissection is limited in the absence of intravenous contrast. No aortic findings are seen to suggest dissection on this noncontrast exam. PLEURA: There is no pleural effusion. No pleural mass or thickening. AXILLA: No lymphadenopathy. UPPER ABDOMEN: Unremarkable. OSSEOUS STRUCTURES: Multilevel endplate osteophytes are present in the spine. IMPRESSION: No acute intrathoracic findings identified. Limited evaluation for acute aortic pathology in the absence of intravenous contrast.
--- NOTE | 2017-05-13 05:44 | Admission Certification ---
Admission Certification Certification Statement - As attending physician, I certify that at the time of - admission, based on clinical presentation, severity of - symptoms, need for further diagnostic testing and - therapeutic interventions, and risk of adverse outcomes - without in-hospital treatment, in my clinical assessment, - this patient requires an acute hospital stay for a minimum - of two nights or longer. I have also considered psychsocial - factors such as support system, advanced age, financial - issues, cognitive issues, and failed out-patient treatments, - past re-admission history, safety of patient, and lack of - compliance as applicable. Specific rationale supporting this admission is: severe bronchospasm secondary to fish allergy, asthma exacerbation
--- NOTE | 2017-05-13 07:48 | Cons- CRCU ---
General Information and HPI Allergies/Medications Allergies: Coded Allergies: Iodinated Contrast- Oral and IV Dye (IODINATED CONTRAST MEDIA - ORAL AND) ( Severe, ANAPHYLAXIS 04/24/17) iodine (Severe, ANAPHYLAXIS 04/24/17) shellfish derived (Severe, ANAPHYLAXIS 04/24/17) Home Med List: Albuterol Sulfate (Proair Hfa) 90 MCG HFA.AER.AD 2 PUF INH PRN ASTHMA ( Reported) Albuterol Sulfate 2.5 MG/3 ML (0.083 %) VIAL.NEB 1 Vial INH/NEDA Q4P PRN ASTHMA (Reported) Atorvastatin Calcium 20 MG TABLET 1 TAB PO DAILY CHOLESTEROL (Reported) Budesonide/Formoterol Fumarate (Symbicort 160-4.5 Mcg Inhaler) 160 MCG-4.5 MCG/ ACTUATION HFA.AER.AD 2 PUF INH BID BREATHING PROBLEMS (Reported) Epinephrine 0.3 MG/0.3 ML AUTO.INJCT 0.3 MG IM AD PRN ALLERGIC REACTION ( Reported) Epinephrine (Epipen 2-Cristobal) 0.3 MG/0.3 ML AUTO.INJCT 1 INJ IM X1 PRN SEVERE ALLERGIC REACTION FOR SEVERE ALLERGIC REACTIONS AND CALL 911 Famotidine 40 MG TABLET 1 TAB PO DAILY GI (Reported) Ibuprofen 800 MG TABLET 1 TAB PO PRN PAIN/INFLAMMATION (Reported) Metoprolol Tartrate 25 MG TABLET 1 TAB PO DAILY HEART/BP (Reported) Montelukast Sodium 10 MG TABLET 1 TAB PO DAILY ALLERGIES (Reported) Prednisone 10 MG TABLET 1 TAB PO AD ASTHMA TAKE 4 TAB DAILY X 3 DAYS TAKE 3 TAB DAILY X 4 DAYS TAKE 2 TAB DAILY X 4 DAYS TAKE 1 TAB DAILY X 5 DAYS Topiramate 25 MG TABLET 1 TAB PO BID MIGRAINES (Reported) Past History Travel History Traveled to [place] past 21 day No Medical History Neurological: MIGRAINES EENT: NONE Cardiovascular: NONE Respiratory: asthma Gastrointestinal: GERD Hepatic: NONE Renal: NONE Musculoskeletal: NONE Psychiatric: NONE Endocrine: NONE Blood Disorders: anemia Cancer(s): NONE 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 Home Services at Home: NONE Smoking Status: Never Smoked ETOH Use: denies use Illicit Drug Use: denies illicit drug use Functional Ability ADLs Independent: dressing, eating, toileting, bathing. Ambulation: independent IADLs Independent: shopping, housework, finances, food prep, telephone, transportation , medication admin. Assessment/Plan Consult Acknowledgment - Thank you for your consult request.
[2017-05-13 09:06] LABS: ABSOLUTE BASOPHIL COUNT 0 /CUMM (0.0-0.2); ABSOLUTE EOSINOPHIL COUNT 0 /CUMM (0.0-0.7); ABSOLUTE GRANULOCYTE CT 12.8 /CUMM (1.4-6.5); ABSOLUTE LYMPH COUNT 1.4 /CUMM (1.2-3.4); ABSOLUTE MONOCYTE COUNT 0.1 /CUMM (0.10-0.60); BASOPHIL % 0.1 % (0.0-2.0); EOSINOPHIL % 0.1 % (0-5); HEMATOCRIT 31.2 % (37-47); MEAN CORPUSCULAR HGB 18.1 PG (27.0-31.0); MEAN CORPUSCULAR HGB CONC 30.4 G/DL (33.0-37.0); MEAN CORPUSCULAR VOLUME 59.6 FL (81.0-99.0); MEAN PLATELET VOLUME 9.4 FL (7.4-10.4); RBC DISTRIBUTION WIDTH 22.4 % (11.5-14.5); RED BLOOD CELL CT 5.24 /CUMM (4.20-5.40); WHITE BLOOD CELL COUNT 14.3 /CUMM (4.8-10.8)
[2017-05-13 09:26] LABS: PLATELET COUNT 256 /CUMM (130-400)
--- NOTE | 2017-05-13 10:12 | PN- Housestaff ---
Subjective Follow-up For: Asthma Exacerbation Tele-Events Since Last Visit: Sinus Tachycardia with Heart rate in 100s Subjective: Patient was seen and examined at bedside. Review of Systems Constitutional: Reports: no symptoms. Cardiovascular: Reports: chest pain, palpitations. Respiratory: Reports: cough, short of breath. Gastrointestinal: Reports: abdominal pain. Genitourinary: Reports: no symptoms. Objective Last 24 Hrs of Vital Signs/I&O Vital Signs Date Time Temp Pulse Resp B/P B/P Pulse O2 O2 Flow FiO2 Mean Ox Delivery Rate 05/13 1036 97.6 114 22 136/74 98 Room Air 05/13 0606 99.1 98 20 113/56 98 Nasal 2.0L Cannula 05/13 0527 98 Nasal 2.0L Cannula 05/13 0452 98.7 117 20 116/60 98 Nasal 2.0L Cannula 05/13 0351 99.2 95 20 111/63 98 Nasal 2.0L Cannula 05/13 0231 98.0 101 20 112/68 100 Nasal 2.0L Cannula 05/13 0100 103 100 05/13 0048 103 20 115/63 100 BIPAP 05/12 2327 98 BIPAP 35% 05/12 2319 98 BIPAP 35% 05/12 2303 98.2 100 20 114/62 100 BIPAP 05/12 2247 98 BIPAP 35% 05/12 2212 98 05/12 2203 Ventilator 100% 05/12 2144 97.6 120 26 144/84 100 BIPAP Intake & Output 05/13 1600 05/13 0800 05/13 0000 Intake Total Output Total Balance Patient 158 lb 175 lb Weight Weight Reported by Patient Estimated Measurement Method Physical Exam General Appearance: Alert, Oriented X3, Cooperative, No Acute Distress Skin: No Rashes, No Breakdown Skin Temp/Moisture Exam: Warm/Dry Sepsis Skin Exam (color): Normal for Ethnicity HEENT: Atraumatic Cardiovascular: Normal S1, Normal S2, tachycardia Lungs: diminished air entry Abdomen: Soft, No Tenderness Neurological: Normal Speech Extremities: No Edema Assessment/Plan Assessment: Ms. Soriano is a 37-year-old lady with past medical history significant for asthma, migraine, GERD, chronic anemia and recently admitted to , October 2016, for unstable angina who was brought in by ambulance for an episode of severe respiratory distress. Assessment and Plan: Respiratory distress: Currently on 2L NC. This morning patient reports doing a lot better especially after the neb treatment she received at 5am. She believes it was her asthma acting up. She has had respiratory issues requiring several ED visits the past 3 weeks since her URI. She has been twice on steroid taper without significant relief. * Continue IV famotidine BID. It helps her with GERD which otherwise exacerbates her asthma. * Continue IV Benadryl 50 milligrams q8. * V/Q scan was negative and IV heparin has been discontinued. * IV Solu-Medrol 40 mg q12. * Troponin and EKG have been negative x 3 * TRC nebs as needed. * Consider echo in a.m. 2. Leukocytosis: * Elevated white count though trending down. * Could be due to her steroid use. * Will trend. 3. Lactic acidosis: (resolved) Patient had lactic acid 5.7 on admission. * It has trended down to normal this morning. 4. Anemia: Patient has hemoglobin 9.7 with MCV 60. Her mother has history of alpha thalassemia. Likely patient does alpha thal, but unsure where she is losing blood. * Monitor CBC * Stool guaiac * Iron studies show low iron and Fe with normal TIBC DVT Prophylaxis: SC Lovenox daily Diet: Regular Code: Full Code. Problem List: 1. Asthma Pain Ratin Pain Location: none Pain Goal: Remain pain free Pain Plan: none Tomorrow's Labs & Rationales: CBC, BEP
--- NOTE | 2017-05-13 10:18 | ULTRASOUND REPORT ---
EXAMINATION: BILATERAL TRIPLEX SCANNING OF THE LOWER EXTREMITIES CLINICAL INFORMATION: Shortness of breath, syncope, tachycardia. COMPARISON: None. TECHNIQUE: Color-flow triplex imaging with spectral analysis and compression Doppler were performed on the lower extremities. FINDINGS: Respiratory variation, normal compression and augmented flow are noted throughout the lower extremities. The visualized common femoral vein, superficial femoral vein, profunda femoral vein, popliteal vein and mid calf peroneal and posterior tibial venous segments show no evidence of deep venous thrombosis. There is no Chacon's cyst. IMPRESSION: Normal triplex scan without evidence of deep venous thrombosis involving the lower extremities.
--- NOTE | 2017-05-13 12:46 | NUCLEAR MEDICINE REPORT ---
EXAMINATION: PULMONARY VENTILATION PERFUSION STUDY CLINICAL INFORMATION: Respiratory distress. COMPARISON: The previous study dated 02/26/2010 is available for comparison. CT scan of the chest dated 05/13/2017, the same date as this lung scan, is available for comparison. A chest radiograph dated 05/12/2017 is also available for comparison. TECHNIQUE: Serial gamma scintillation camera images were obtained over the posterior chest during the single breath, equilibrium rebreathing and washout of 10.7 mCi Xe 133 gas. The patient then received 4.4 mCi Tc-99m MAA intravenously and a 6-view perfusion study was performed. FINDINGS: Ventilation images: On the single breath and equilibrium images there is homogeneous distribution of gas bilaterally. During the washout phase there is no abnormal retention. Perfusion images: No segmental perfusion defects are present. There is homogeneous distribution of activity bilaterally. There are no focal anatomic appearing perfusion defects present. Compared to the previous study dated 02/26/2010, mild gas trapping in the right lung base on the previous study is no longer present on the current study. In addition, small subsegmental perfusion defects present on the previous study are not present on the current study. IMPRESSION: Normal radionuclide lung ventilation perfusion scan.
[2017-05-13 13:30] LABS: PT 20.4 SEC (9.4-12.5)
[2017-05-13 13:45] LABS: PTT > 120 SEC (25-37)
--- NOTE | 2017-05-13 13:57 | PN- Att Addend ---
Attending Addendum Attending Brief Note Patient seen and examined. She was brought into the ER for evaluation overnight after developing respiratory distress. According to the emergency room notes, EMS found patient a respiratory arrest and started ventilatory assistance with bag mask. In the emergency room she was placed on BiPAP therapy and improved after administration of combination of Narcan and epinephrine. She was initially admitted to the intensive care unit for further management or due to clinical improvement she was downgraded by the critical care service. Patient has a history of asthma with repeated hospitalizations. This tay her third visit to the emergency room this month. First visit was on April at that time she declined hospitalization and left AGAINST MEDICAL ADVICE. She returned a week ago with similar complaints. She was managed for asthma exacerbation in the ER and discharged home. She is on Symbicort and albuterol at home and reports compliance. Denies cigarette use. She reports a shellfish allergy and reported developing worsening respiratory distress after eating fish yesterday. Patient however acknowledges that since discharge from the emergency room a week ago she has been feeling suboptimal. She reports wheezing and shortness of breath on exertion. She reports no improvement with her bronchodilators at home. Symptoms got worse yesterday and happened to coincide with the time she had codfish. Her reactions to shellfish are usually marked by laryngeal edema and hives. She denied any such symptoms yesterday. When the symptoms came on she also complained of chest pain. She has had similar chest pain last year when admitted for an asthma exacerbation. Symptoms at that time resulted in her having a nuclear stress test which was negative. Her chest pain did persist after discharge which prompted her fisheries management biologist Dr. Winter to perform a cardiac catheterization. According to the patient's report she had no significant disease. She is currently resting comfortably saturating 99% on 2 L of oxygen. Denies chest pain or shortness of breath at rest. Denies palpitations. She was tachycardic on presentation which led to performance of d-dimer and eventually VQ scan. Both studies were negative. Heart rate has greatly improved. Reports good appetite. Vital Signs Date Time Temp Pulse Resp B/P B/P Pulse O2 O2 Flow FiO2 Mean Ox Delivery Rate 05/13 1252 97.3 97 18 109/64 99 Nasal 2.0L Cannula 05/13 1036 97.6 114 22 136/74 98 Room Air 05/13 0606 99.1 98 20 113/56 98 Nasal 2.0L Cannula 05/13 0527 98 Nasal 2.0L Cannula 05/13 0452 98.7 117 20 116/60 98 Nasal 2.0L Cannula 05/13 0351 99.2 95 20 111/63 98 Nasal 2.0L Cannula 05/13 0231 98.0 101 20 112/68 100 Nasal 2.0L Cannula 05/13 0100 103 100 05/13 0048 103 20 115/63 100 BIPAP 05/12 2327 98 BIPAP 35% 05/12 2319 98 BIPAP 35% 05/12 2303 98.2 100 20 114/62 100 BIPAP 05/12 2247 98 BIPAP 35% 05/12 2212 98 05/12 2203 Ventilator 100% 05/12 2144 97.6 120 26 144/84 100 BIPAP General appearance: Not in any respiratory distresS Neck: No jugular venous distention HEENT anicteric, no pallor. Heart: S1-S2 regular 2/6 systolic murmur Lungs: Good entry bilaterally with no added sounds Abdomen: Obese, soft, nontender with normal bowel sounds Extremities: No pedal edema Skin: Intact with no rashes Laboratory Tests 05/13/17 1305: PT 20.4 H, INR 1.96 H, APTT > 120 *H 05/13/17 1131: Lactic Acid Cancelled 05/13/17 0852: Lactic Acid 2.1, Troponin I < 0.01, CBC w Diff NO MAN DIFF REQ, RBC 5.24, MCV 59.6 L, MCH 18.1 L, RDW 22.4 H, MPV 9.4, Gran % 89.0 H, Lymphocytes % 10.0 L, Monocytes % 0.8 L, Eosinophils % 0.1, Basophils % 0.1, Absolute Granulocytes 12.8 H, Absolute Lymphocytes 1.4, Absolute Monocytes 0.1, Absolute Eosinophils 0, Absolute Basophils 0, PUBS MCHC 30.4 L 05/13/17 0600: Lactic Acid 3.9 H 05/13/17 0300: pH 7.40, pCO2 32 L, pO2 117 H, HCO3 19 L, ABG O2 Sat (Measured) 97.0, P-50 ( Temp Corrected) Y, Carboxyhemoglobin 0.3 L, O2 Concentration % 2 LPM, Temperature 99.2, O2 Delivery Method N/C, Phlebotomy Draw Site LEFT RADIAL 05/13/17 0257: Lactic Acid 2.9 H, Troponin I < 0.01 05/13/17 0040: Lactic Acid 2.6 H 05/12/175: pH 7.35, pCO2 36, pO2 193 H, HCO3 20 L, ABG O2 Sat (Measured) 99.0, Carboxyhemoglobin 0.3 L, O2 Concentration % 35, Respiration Rate 20, O2 Delivery Method BIPAP, Vent Mode ST, Expiratory Pressure 6, Inspiratory Pressure 12, Phlebotomy Draw Site LEFT RADIAL 05/12/171: Anion Gap 17 H, Estimated GFR > 60, BUN/Creatinine Ratio 17.0, Glucose 219 H, Lactic Acid 5.7 H, Calcium 8.6, Iron 30 L, TIBC 447, Ferritin 4.6 L, Total Bilirubin 0.1 L, Direct Bilirubin 0.1, AST 16, ALT 37, Alkaline Phosphatase 58, Troponin I < 0.01, Total Protein 7.3, Albumin 4.1, Amylase 88, Lipase 161, Total Beta HCG NEGATIVE, D-Dimer High Sensitivty < 200, CBC w Diff MAN DIFF ORDERED, RBC 5.32, MCV 60.2 L, MCH 18.3 L, RDW 22.5 H, MPV 9.6, Gran % 48.3, Lymphocytes % 38.2, Monocytes % 8.3, Eosinophils % 4.9, Basophils % 0.3, Absolute Granulocytes 10.3 H, Segmented Neutrophils 37 L, Band Neutrophils 2, Absolute Lymphocytes 8.1 H, Lymphocytes 43, Monocytes 11 H, Absolute Monocytes 1.8 H, Eosinophils 5, Absolute Eosinophils 1.1, Absolute Basophils 0.1, Metamyelocytes 2 H, Platelet Estimate ADEQUATE, Polychromasia 1+, Hypochromic- Microcytic 1+, Anisocytosis 3+, Microcytic Cells 3+, PUBS MCHC 30.4 L, Retic Count 3.19 H, Serum Alcohol < 10.0 05/12/172138: Lactic Acid Cancelled, Serum Alcohol Cancelled, Urine Color Cancelled, Urine Clarity Cancelled, Urine pH Cancelled, Ur Specific Russell Cancelled, Urine Protein Cancelled, Urine Ketones Cancelled, Urine Nitrite Cancelled, Urine Bilirubin Cancelled, Urine Urobilinogen Cancelled, Ur Leukocyte Esterase Cancelled, Ur Microscopic Cancelled, Urine Hemoglobin Cancelled, Urine Glucose Cancelled Microbiology 05/124 NASOPHARYN: Influenza Virus A & B Rapid Smear - COMP EKG showed no ischemic changes. Plan: 1. Acute hypoxic respiratory failure; resolved 2. Acute asthma exacerbation 3. Chest pain; atypical 4. Lactic acidosis; resolved 5. Leukocytosis; likely steroid-induced Plan: -Taper off oxygen supplementation. Check pulse oximetry on room air at rest and with ambulation. -Continue bronchodilator therapy. -Continue systemic steroid therapy with Solu-Medrol. Decrease dose to every 8 hours. -Mobilize patient as tolerated. -Consultation with patient's crisis intervention specialist Dr. Brown. -Consultation with patient's fisheries management biologist Dr. Winter. Chest pain is less likely of cardiac etiology given her negative cardiac catheterization in November 2016. Please confirm these results with her fisheries management biologist. -Follow up with the pulmonology service before resuming patient's beta-manjit therapy as this may be contributing to her recurrent bronchospasms. -DVT prophylaxis with lovenox
--- NOTE | 2017-05-13 13:58 | ECHOCARDIOGRAM REPORT ---
PRIYA HERNDON Age: 37 : 1980 Gender: F Exam Date: 05/13/2017 10:09 Exam Location: ER Ht (in): 67 Wt (lb): 158 BSA: 1.85 BP: 138 / 73 Ordering Physician: Elissa Ma MD Referring Physician: Elissa Ma MD Technologist: Gee Huang LINDSEY Room Number: 11 Indications: ACUTE PULMONARY EMBOLISM Rhythm: Sinus Technical Quality: Fair FINDINGS Left Ventricle Normal left ventricular size, wall thickness and systolic function with no obvious regional wall motion abnormalities. Abnormal relaxation filling pattern of the left ventricle for age (stage 1 diastolic dysfunction). The ejection fraction is visually estimated at 60 %. Right Ventricle The right ventricle is normal in size and function. Right Atrium The right atrium is normal in size. Left Atrium The left atrium is normal in size. The interatrial septum is intact. Mitral Valve The mitral valve is normal in structure and function. There is trace mitral regurgitation. Aortic Valve Aortic valve not well visualized, grossly normal. There is no hemodynamically significant aortic stenosis or aortic regurgitation. Tricuspid Valve The tricuspid valve is normal in structure and function. There is trace tricuspid regurgitation. Pulmonary artery systolic pressure is 30 mmHg. . Pulmonic Valve Structurally normal pulmonic valve. There is no pulmonic regurgitation. Pericardium Normal pericardium without effusion. No pleural effusion. Great Vessels Normal aortic root dimension. Normal size inferior vena cava. CONCLUSIONS Normal left ventricular size, wall thickness and systolic function with no obvious regional wall motion abnormalities. Abnormal relaxation filling pattern of the left ventricle for age (stage 1 diastolic dysfunction). The ejection fraction is visually estimated at 60 %. The right ventricle is normal in size and function. The right atrium is normal in size. The left atrium is normal in size. The interatrial septum is intact. There is trace mitral regurgitation. There is trace tricuspid regurgitation. Pulmonary artery systolic pressure is 30 mmHg. Richy Carlos M.D. (Electronically Signed) Final Date: 13 May 2017 13:57 MEASUREMENTS (Male / Female) Normal Values 2D ECHO LV Diastolic Diameter PLAX 4.0 cm 4.2 - 5.9 / 3.9 - 5.3 cm LV Systolic Diameter PLAX 1.8 cm 2.1 - 4.0 cm LV Fractional Shortening PLAX 55.0 % 25 - 46 % LV Ejection Fraction 2D Teich 86.1 % IVS Diastolic Thickness 0.7 cm LVPW Diastolic Thickness 0.7 cm LV Relative Wall Thickness 0.3 RV Internal Dim ED PLAX 2.7 cm 1.9 - 3.8 cm LVOT Diameter 1.8 cm Aortic Root Diameter 2.4 cm LA Systolic Diameter LX 2.3 cm 3.0 - 4.0 / 2.7 - 3.8 cm LA Volume 20.0 cm 18 - 58 / 22 - 52 cm DOPPLER AV Peak Velocity 175.0 cm/s AV Peak Gradient 12.3 mmHg AV Mean Velocity 123.0 cm/s AV Mean Gradient 7.0 mmHg AV Velocity Time Integral 33.1 cm LVOT Peak Velocity 108.0 cm/s LVOT Peak Gradient 4.7 mmHg LVOT Mean Velocity 67.3 cm/s LVOT Mean Gradient 2.0 mmHg LVOT Velocity Time Integral 20.9 cm LVOT Stroke Volume 53.2 cm AV Area Cont Eq vti 1.6 cm AV Area Cont Eq pk 1.6 cm MV Peak Velocity 132.0 cm/s MV Peak Gradient 7.0 mmHg MV Mean Velocity 83.4 cm/s MV Mean Gradient 3.0 mmHg Mitral E Point Velocity 91.8 cm/s Mitral A Point Velocity 121.0 cm/s Mitral E to A Ratio 0.8 MV PHT Velocity 128.0 cm/s MV Deceleration [place] 747.0 cm/s MV Pressure Half Time 51.4 ms MV Area PHT 4.3 cm MV Deceleration Time 165.0 ms TR Peak Velocity 251.0 cm/s TR Peak Gradient 25.2 mmHg Right Atrial Pressure 5.0 mmHg Pulmonary Artery Systolic Pressu 30.2 mmHg Right Ventricular Systolic Press 30.2 mmHg PV Peak Velocity 139.0 cm/s PV Peak Gradient 7.7 mmHg PV Mean Velocity 85.8 cm/s PV Mean Gradient 4.0 mmHg PV Velocity Time Integral 23.4 cm LV E' Lateral Velocity 14.9 cm/s Mitral E to LV E' Lateral Ratio 6.2 LV E' Septal Velocity 13.6 cm/s Mitral E to LV E' Septal Ratio 6.8
[2017-05-13 17:49] VITALS: BP 128/78
[2017-05-13 22:30] VITALS: BP 122/38
[2017-05-13 23:27] VITALS: BP 118/50
[2017-05-14 06:07] VITALS: BP 110/64
--- NOTE | 2017-05-14 06:49 | PN- Housestaff ---
Patt PEREZ,Monica 05/14/17 0649: Subjective Follow-up For: Acute exacerbation of asthma, anemia Complaints: no complaints Tele-Events Since Last Visit: Normal sinus rhythm heart rate 75 Subjective: Patient was seen and examined by me today. Patient is on 1 L nasal oxygen. Patient was having shortness of breath which eventually subsided following nebulization treatment. She denies chest pain, shortness of breath, chest pressure, nausea, vomiting, fever, cough. Review of Systems Constitutional: Reports: no symptoms. Cardiovascular: Reports: no symptoms. Respiratory: Reports: no symptoms. Gastrointestinal: Reports: no symptoms. Genitourinary: Reports: no symptoms. Musculoskeletal: Reports: no symptoms. Objective Last 24 Hrs of Vital Signs/I&O Vital Signs Date Time Temp Pulse Resp B/P B/P Pulse O2 O2 Flow FiO2 Mean Ox Delivery Rate 05/14 1159 97 Room Air 05/14 0926 96 Nasal 1.0L Cannula 05/14 0800 99 Nasal 1.0L Cannula 05/14 0607 98.6 86 18 110/64 99 Nasal 1.0L Cannula 05/14 0333 96 Nasal 1.0L Cannula 05/14 0000 Nasal 1.0L Cannula 05/13 2353 Nasal 1.0L Cannula 05/13 2327 118/50 05/13 2230 122/38 05/13 2200 99.2 107 18 98 Nasal 1.0L Cannula 05/13 1749 99.0 110 20 128/78 99 Nasal 1.0L Cannula 05/13 1721 Nasal 1.0L Cannula 05/13 1638 99.0 112 22 151/82 99 Nasal 1.0L Cannula 05/13 1535 97 Room Air Intake & Output 05/14 1600 05/14 0800 05/14 0000 Intake Total Output Total Balance Patient 158 lb Weight Weight Estimated Measurement Method Physical Exam General Appearance: Alert, Oriented X3, Cooperative, No Acute Distress HEENT: Atraumatic Cardiovascular: Regular Rate, Normal S1, Normal S2, No Murmurs Lungs: Clear to Auscultation Abdomen: Normal Bowel Sounds, Soft, No Tenderness, No Hepatospenomegaly Neurological: Normal Speech, Strength at 5/5 X4 Ext, Normal Tone, Sensation Intact Extremities: No Edema Current Medications: Current Medications Sig/Radha Start time Last Medication Dose Route Stop Time Status Admin Acetaminophen 650 MG Q6P PRN 05/13 0045 AC PO Albuterol Sulfate 3 ML EVERY 4 HRS/AWAKE 05/14 0800 AC 05/14 INH 1151 Albuterol Sulfate 2 PUF Q4-6 PRN PRN 05/13 2045 AC INH Atorvastatin Calcium 20 MG 1700 05/13 1700 AC 05/13 PO 1815 Diphenhydramine HCl 50 MG Q8 05/13 0600 AC 05/14 IV 0602 Enoxaparin Sodium 40 MG DAILY 05/13 1000 AC 05/14 SC 1011 Famotidine 20 MG BID 05/13 1000 DC 05/13 IV 2201 Guaifenesin 600 MG Q12 05/13 1548 AC 05/14 PO 1011 Ibuprofen 600 MG Q6P PRN 05/13 0045 AC PO Ipratropium Triplett 2.5 ML EVERY 4 HRS/AWAKE 05/14 0800 AC 05/14 INH 1151 Methylprednisolone 40 MG Q8 05/13 2030 DC 05/14 IV 0601 Methylprednisolone 40 MG Q12P PRN 05/13 1415 DC IV Methylprednisolone 40 MG Q6 05/13 0600 DC 05/13 IV 1251 Omeprazole 40 MG DAILY AC 05/14 0919 AC 05/14 PO 1011 Ondansetron HCl 4 MG Q6P PRN 05/13 0045 AC IV Oxycodone/ 2 TAB Q6P PRN 05/13 0045 AC Acetaminophen PO Polyethylene Glycol 17 GM DAILY PRN 05/13 1600 AC PO Prednisone 40 MG DAILY 05/15 1000 AC PO Prednisone 40 MG DAILY 05/14 1000 DC PO Sodium Chloride 1,000 ML Q6H 05/13 0100 DC 05/13 IV 1251 Last 24 Hrs of Lab/Yoshi Results Last 24 Hrs of Labs/Mics: Laboratory Tests 05/14/17 0620: Anion Gap 14, Estimated GFR > 60, BUN/Creatinine Ratio 32.0 H, CBC w Diff NO MAN DIFF REQ, RBC 5.00, MCV 60.0 L, MCH 18.0 L, RDW 21.9 H, MPV 10.0, Gran % 84.9 H, Lymphocytes % 6.3 L, Monocytes % 8.6, Eosinophils % 0.1, Basophils % 0.1, Absolute Granulocytes 21.9 H, Absolute Lymphocytes 1.6, Absolute Monocytes 2.2 H, Absolute Eosinophils 0, Absolute Basophils 0, PUBS MCHC 30.1 L Assessment/Plan Assessment: Ms. Soriano is a 37-year-old lady with past medical history significant for asthma, migraine, GERD, chronic anemia and recently admitted to [facility] , October 2016, for unstable angina who was brought in by ambulance for an episode of severe respiratory distress found to be in acute exacerbation of asthma, admitted to telemetry for further evaluation and management Assessment and Plan: Respiratory distress: Patient doesn't have respiratory distress since admission. Patient has been ruled out for PE. She is on 1 L of nasal oxygen which will be weaned off today. She says she feels better after nebulization treatment. Patient is on IV Solu- Medrol which can be converted to by mouth prednisone. We will continue TRC nebulization and get a cardiology consult, given that patient had unstable angina in October 2016 and was worked up with a stress test negative. Patient was evaluated by salesperson parts who suggested sinus x-ray and weaning her off from oxygen. 2. Anemia: Patient has hemoglobin 9.7 with MCV 60. Patient has history of alpha thalassemia, evaluated in the past. Patient has never seen a drilling assistant. She has been followed up by her primary care physician. She is on iron supplements. Off note gives history of excessive menstrual bleeding. She has been evaluated in the past by her center aisle cashier who suggested progesterone pills, but patient didn't see any improvement and eventually discontinued the treatment. We will get a GI consult to rule out any GI bleed. We will send the stool guaiac 3. GERD Patient is on famotidine and we will start discontinuing started on PPI. SC Lovenox daily Regular Full Code. Plan-gastroenterology follow-up, guaiac test, sinus x-ray. Problem List: 1. Asthma 2. Anemia Pain Ratin Pain Location: none Pain Goal: Remain pain free Pain Plan: tylenol Tomorrow's Labs & Rationales: cbc,bep Basilio PEREZ,Marie 05/14/17 1244: Attending MD Review Statement Attending Statement Attending MD Statement: examined this patient, discuss w/resident/PA/SITE ENGINEER, agreed w/resident/PA/SITE ENGINEER, discussed with family, reviewed EMR data (avail), discussed with nursing, discussed with case mgmt, amended to note Attending Assessment/Plan: Patient seen and examined. Resting comfortably and not in any acute distress. No issues overnight. No events on telemetry monitoring. She is alert and oriented 3 conversant appropriately. Denies chest pain or shortness of breath. Denies palpitations. She reports feeling much better. She has been weaned off oxygen supplementation. On examination she is not in any distress. She has good entry bilaterally and lungs are clear to auscultation. Laboratory data does show downward trending the hemoglobin levels. Problems: 1. Acute hypoxic respiratory failure 2. Asthma exacerbation 3. Chest pain 4. GERD 5. Anemia; multifactorial secondary to thalassemia, chronic blood loss from menorrhagia. Plan: -Patient's respiratory status has improved significantly. She is no longer requiring oxygen supplementation. She is asymptomatic. Lungs are clear to auscultation. It appears that her presentation was triggered by bronchospasm due to her asthma. It is unknown why she had such a severe episode. A possiblity is that patient may have had an allergic reaction however she has had fish in the past with no reactions. She denied presence of any hives. Consultation by her salesperson parts appreciated. -Recommendations are to optimize treatment of her GERD. She has been switched from an H2 antagonist or PPI therapy. Recommend evaluation by gastroenterology service. She reports having an EGD done in the past. -Patient has chronic anemia however during this hospitalization her hemoglobin levels have been trending down slowly. She does give a history of menorrhagia for which she was prescribed progesterone pills. She reported no improvement and then stop taking this medication. She is currently following with a center aisle cashier. She denies any history of bloody or black stools (even though she is taking iron supplements). Recommend reevaluation by the gastroenterology service. -Due to the downward trend of her hemoglobin she will be monitored closely in the hospital. If her hemoglobin level remain stable she may be discharged tomorrow. If she continues to trend down she may require PRBC transfusion if her hemoglobin trends down below 8. -Chest pain likely triggered by her asthma and possible underlying GERD. Although she had a negative stress test last year she went on to have a cardiac cath that was reportedly negative. Will follow further recommendations of her cardiology service. -Anticipate discharge tomorrow if hemoglobin level remain stable and pending GI consultation.
--- NOTE | 2017-05-14 07:38 | PN- Student ---
Subjective Subjective: Gabriel is a 37y old female with a hx of asthma, migraines, GERD, and chronic anemia who was admitted to our service on 05/13/17 2/2 respiratory distress. Overnight, the patient slept well with the exception of breathing trouble that required nebs around 0300. She also complains of chest pain secondary to coughing, but denies symptoms of worsening breathing difficulties, palpitations, uncontrolled GERD, nausea, diaphoresis, or lightheadedness. Objective Objective: Laboratory Tests 05/14 05/13 05/13 0620 1305 1131 Chemistry Sodium Pending Potassium Pending Chloride Pending Carbon Dioxide Pending Anion Gap Pending BUN Pending Creatinine Pending BUN/Creatinine Ratio Pending Lactic Acid Cancelled Coagulation PT (9.4 - 12.5 SEC) 20.4 H INR (0.90 - 1.19) 1.96 H APTT (25 - 37 SEC) > 120 *H Hematology CBC w Diff Pending WBC Pending RBC Pending Hgb Pending Hct Pending MCV Pending MCH Pending RDW Pending Plt Count Pending MPV Pending PUBS MCHC Pending 05/13 05/13 0852 0813 Chemistry Sodium Cancelled Potassium Cancelled Chloride Cancelled Carbon Dioxide Cancelled Anion Gap Cancelled BUN Cancelled Creatinine Cancelled Glucose Cancelled Lactic Acid (0.7 - 2.1 mmol/L) 2.1 Calcium Cancelled Phosphorus Cancelled Magnesium Cancelled Total Bilirubin Cancelled AST Cancelled ALT Cancelled Troponin I (< 0.11 ng/ml) < 0.01 Albumin Cancelled Hematology CBC w Diff NO MAN DIFF REQ WBC (4.8 - 10.8 /CUMM) 14.3 H RBC (4.20 - 5.40 /CUMM) 5.24 Hgb (12.0 - 16.0 G/DL) 9.5 L Hct (37 - 47 %) 31.2 L MCV (81.0 - 99.0 FL) 59.6 L MCH (27.0 - 31.0 PG) 18.1 L RDW (11.5 - 14.5 %) 22.4 H Plt Count (130 - 400 /CUMM) 256 MPV (7.4 - 10.4 FL) 9.4 Gran % (42.2 - 75.2 %) 89.0 H Lymphocytes % (20.5 - 51.1 %) 10.0 L Monocytes % (1.7 - 9.3 %) 0.8 L Eosinophils % (0 - 5 %) 0.1 Basophils % (0.0 - 2.0 %) 0.1 Absolute Granulocytes (1.4 - 6.5 /CUMM) 12.8 H Absolute Lymphocytes (1.2 - 3.4 /CUMM) 1.4 Absolute Monocytes (0.10 - 0.60 /CUMM) 0.1 Absolute Eosinophils (0.0 - 0.7 /CUMM) 0 Absolute Basophils (0.0 - 0.2 /CUMM) 0 PUBS MCHC (33.0 - 37.0 G/DL) 30.4 L Orders Procedure Date/time Status CBC WITHOUT DIFFERENTIAL 05/14 0600 Active BASIC ELECTROLYTES PLUS BUN&CR 05/14 0600 Active Regular Diet 05/13 D Active RT: Evaluation 05/13 2353 Active Vital Signs 05/13 1620 Complete Teach/Educate 05/13 162 Active Pain Treatment and Response 05/13 1620 Active Nutritional Intake, Monitor 05/13 1620 Active Isolation 05/13 1620 Active Intake & Output 05/13 1620 Complete Patient Care Conference 05/13 1620 Active Activity/Ambulation 05/13 1620 Active OXYGEN SETUP (GEN) 05/13 1600 Complete Patient Data 05/13 1103 Active LACTIC ACID 05/13 0900 Complete CBC WITHOUT DIFFERENTIAL 05/13 0813 Complete THERAPIST ORDERS 05/13 UNK Complete Transfer patient to 05/13 K Active Change service to 05/13 K Active Telemetry/Hearing Consultant 05/13 UNK Active Orders Procedure Date/time Status CBC WITHOUT DIFFERENTIAL 05/14 0600 Active BASIC ELECTROLYTES PLUS BUN&CR 05/14 0600 Active Regular Diet 05/13 D Active Nothing by Mouth 05/13 B Complete RT: Evaluation 05/13 2353 Active Vital Signs 05/13 1620 Complete Teach/Educate 05/13 1620 Active Pain Treatment and Response 05/13 1620 Active Nutritional Intake, Monitor 05/13 1620 Active Isolation 05/13 1620 Active Intake & Output 05/13 1620 Complete Patient Care Conference 05/13 1620 Active Activity/Ambulation 05/13 1620 Active OXYGEN SETUP (GEN) 05/13 1600 Complete PARTIAL THROMBOPLASTIN TIME 05/13 1130 Complete PROTHROMBIN TIME 05/13 1130 Complete Patient Data 05/13 1103 Active TROPONIN LEVEL 05/13 0900 Complete LACTIC ACID 05/13 0900 Complete EKG 05/13 0900 Active CBC WITHOUT DIFFERENTIAL 05/13 0813 Complete LACTIC ACID 05/13 0600 Complete TRC EVALUATION (GEN) 05/13 0512 Complete TROPONIN LEVEL 05/13 0300 Complete LACTIC ACID 05/13 0300 Complete EKG 05/13 0300 Active ARTERIAL BLOOD GAS (GEN) 05/13 0200 Complete OXYGEN SETUP (GEN) 05/13 0103 Complete TRC EVALUATION (GEN) 05/13 0052 Complete Pathway - chart 05/13 0052 Active House Staff 05/13 0052 Active Code Status 05/13 0052 Active LACTIC ACID 05/13 0039 Complete THERAPIST ORDERS 05/13 UNK Complete Transfer patient to 05/13 UNK Active Change service to 05/13 UNK Active Lab Add-on Test 05/13 UNK Active VTE Mechanical Prophylaxis 05/13 UNK Active Vital Signs 05/13 UNK Active Telemetry/Hearing Consultant 05/13 UNK Active Intake & Output 05/13 UNK Complete Hemoccult 05/13 UNK Active Admit to inpatient 05/12 2311 Active Intake & Output 05/12 2205 Active RAPID VIRAL INFLUENZA A 05/12 2154 Complete TOTAL IRON BINDING CAPACITY 05/12 214 Complete RETICULOCYTE COUNT 05/12 214 Complete FERRITIN 05/12 214 Complete SERUM IRON 05/12 214 Complete ETHANOL 05/12 214 Complete D-DIMER 05/12 214 Complete URINE DRUGS OF ABUSE 05/12 2138 Active ARTERIAL BLOOD GAS (GEN) 05/12 2137 Complete TROPONIN LEVEL 05/12 2137 Complete LIPASE 05/12 2137 Complete LACTIC ACID 05/12 2137 Complete HEPATIC FUNCTION PANEL 05/12 2137 Complete HUMAN BETA HCG SCREEN 05/12 2137 Complete CBC WITHOUT DIFFERENTIAL 05/12 2137 Complete BASIC METABOLIC PANEL 05/12 2137 Complete AMYLASE 05/12 2137 Complete EKG 05/12 2137 Active BIPAP 05/12 UNK Complete Vital Signs Date Time Temp Pulse Resp B/P B/P Pulse O2 O2 Flow FiO2 Mean Ox Delivery Rate 05/14 0607 98.6 86 18 110/64 99 Nasal 1.0L Cannula 05/14 0333 96 Nasal 1.0L Cannula 05/14 0000 Nasal 1.0L Cannula 05/13 2353 Nasal 1.0L Cannula 05/13 2327 118/50 01/22 2230 122/38 01/22 2200 99.2 107 18 98 Nasal 1.0L Cannula 05/13 1749 99.0 110 20 128/78 99 Nasal 1.0L Cannula 05/13 1721 Nasal 1.0L Cannula 05/13 1638 99.0 112 22 151/82 99 Nasal 1.0L Cannula 05/13 1535 97 Room Air 05/13 1252 97.3 97 18 109/64 99 Nasal 2.0L Cannula 05/13 1036 97.6 114 22 136/74 98 Room Air Intake & Output 05/14 0800 05/14 0000 05/13 1600 Intake Total Output Total Balance Patient 158 lb Weight Weight Estimated Measurement Method Physical examination: Constitutional: Patient was easily woken, polite, and cooperative with questions and directions. Lungs: CTAB, no wrr Heart: RR, no mrg Abdomen: Soft, protuberant, and non-tender to palpation MSK: Some complaint of rib pain with deep inspiration and palpation diffusely and bilaterally Skin: Cool and moist Assessment/Plan Assessment: Assesment: Patient is a 37y female with a hx of asthma, GERD, migraines, and chronic anemia who was admitted to our service 2/2 respiratory distress on who appears to be doing well, with one episode of difficulty breathing overnight that was responsive to treatment and who on examination, has mild MSK pain with deep breathing but is otherwise benign. AM labs are pending, but labs showed compensated respiratory acidosis. 1) Respiratory distress Asthma exacerbation 2/2 URI --> Stated hx of asthma and URI within the past 3 weeks and current sick contact (4y old in house according to previous note) Cont TRC nebs prn Cont famotidine 40mg BID Cont benedryl 50mg q8 Cont Solu-Medrol 40mg q12 F/u am labs Cont rest of home meds Anaphylaxis 2/2 codfish --> Proximity of event and consumption (3min); however, no known hx of allergy. Recommend patient avoid codfish PE --> R/O with V/Q on 05/12/17 2) Anemia Patient is stable, without symptoms of fatigue, lightheadedness, diaphoresis or malaise. However, this can be contributing to her current admission. F/u am labs 3) GERD Cont famotidine 40mg BID
[2017-05-14 07:52] LABS: ABSOLUTE BASOPHIL COUNT 0 /CUMM (0.0-0.2); ABSOLUTE EOSINOPHIL COUNT 0 /CUMM (0.0-0.7); BASOPHIL % 0.1 % (0.0-2.0); RBC DISTRIBUTION WIDTH 21.9 % (11.5-14.5)
[2017-05-14 08:26] LABS: ABSOLUTE GRANULOCYTE CT 21.9 /CUMM (1.4-6.5); ABSOLUTE LYMPH COUNT 1.6 /CUMM (1.2-3.4); ABSOLUTE MONOCYTE COUNT 2.2 /CUMM (0.10-0.60); EOSINOPHIL % 0.1 % (0-5); GRANULOCYTE % 84.9 % (42.2-75.2); MEAN CORPUSCULAR HGB CONC 30.1 G/DL (33.0-37.0); PLATELET COUNT 253 /CUMM (130-400)
[2017-05-14 08:30] LABS: WHITE BLOOD CELL COUNT 25.8 /CUMM (4.8-10.8)
--- NOTE | 2017-05-14 08:39 | Cons- Pulmonary ---
General Information and HPI Consulting Request Date of Consult: 05/14/17 Requested By: Andry Reason for Consult: Acute asthma History of Present Illness: Patient is 37-year-old has had chronic asthma last evaluated in 2013 which time she had mild obstructive lung disease or asthma was thought to be exacerbated by chronic sinus disease and active reflux. She was admitted with acute asthma attack which has markedly improved. The etiology of chest pain is being further evaluated. Chest x-ray and CT scan shows no acute pulmonary pathology. Lung scan was unrevealing. Allergies/Medications Allergies: Coded Allergies: Iodinated Contrast- Oral and IV Dye (IODINATED CONTRAST MEDIA - ORAL AND) ( Severe, ANAPHYLAXIS 04/24/17) iodine (Severe, ANAPHYLAXIS 04/24/17) shellfish derived (Severe, ANAPHYLAXIS 04/24/17) Home Med List: Albuterol Sulfate (Proair Hfa) 90 MCG HFA.AER.AD 2 PUF INH PRN ASTHMA ( Reported) Albuterol Sulfate 2.5 MG/3 ML (0.083 %) VIAL.NEB 1 Vial INH/NEDA Q4P PRN ASTHMA (Reported) Atorvastatin Calcium 20 MG TABLET 1 TAB PO DAILY CHOLESTEROL (Reported) Budesonide/Formoterol Fumarate (Symbicort 160-4.5 Mcg Inhaler) 160 MCG-4.5 MCG/ ACTUATION HFA.AER.AD 2 PUF INH BID BREATHING PROBLEMS (Reported) Epinephrine 0.3 MG/0.3 ML AUTO.INJCT 0.3 MG IM AD PRN ALLERGIC REACTION ( Reported) Epinephrine (Epipen 2-Cristobal) 0.3 MG/0.3 ML AUTO.INJCT 1 INJ IM X1 PRN SEVERE ALLERGIC REACTION FOR SEVERE ALLERGIC REACTIONS AND CALL 911 Famotidine 40 MG TABLET 1 TAB PO DAILY GI (Reported) Ibuprofen 800 MG TABLET 1 TAB PO PRN PAIN/INFLAMMATION (Reported) Metoprolol Tartrate 25 MG TABLET 1 TAB PO DAILY HEART/BP (Reported) Montelukast Sodium 10 MG TABLET 1 TAB PO DAILY ALLERGIES (Reported) Prednisone 10 MG TABLET 1 TAB PO AD ASTHMA TAKE 4 TAB DAILY X 3 DAYS TAKE 3 TAB DAILY X 4 DAYS TAKE 2 TAB DAILY X 4 DAYS TAKE 1 TAB DAILY X 5 DAYS Topiramate 25 MG TABLET 1 TAB PO BID MIGRAINES (Reported) Review of Systems Review of Systems Constitutional: Denies: chills, fever. Cardiovascular: Reports: chest pain. Respiratory: Reports: cough, sputum production, wheezing. Past History Travel History Traveled to [place] past 21 day No Medical History Blood Transfusion Hx: No Neurological: MIGRAINES EENT: NONE Cardiovascular: NONE, CARDIAC CATH 2017 Respiratory: asthma Gastrointestinal: GERD Hepatic: NONE Renal: NONE Musculoskeletal: NONE Psychiatric: NONE Endocrine: NONE Blood Disorders: anemia Cancer(s): NONE UPPER LINING CEMENTER/Reproductive: NONE Surgical History Surgical History: appendectomy, cholecystectomy, ((3 C-Sections)), tubal ligation Family History Relations & Conditions If Any: Relation not specified for: *No pertinent family history Psychosocial History Where Do You Live? Home Services at Home: NONE Smoking Status: Never Smoked ETOH Use: denies use Illicit Drug Use: denies illicit drug use Functional Ability ADLs Independent: dressing, eating, toileting, bathing. Ambulation: independent IADLs Independent: shopping, housework, finances, food prep, telephone, transportation , medication admin. Exam & Diagnostic Data Last 24 Hrs of Vital Signs/I&O Vital Signs Date Time Temp Pulse Resp B/P B/P Pulse O2 O2 Flow FiO2 Mean Ox Delivery Rate 05/14 0607 98.6 86 18 110/64 99 Nasal 1.0L Cannula 05/14 0333 96 Nasal 1.0L Cannula 05/14 0000 Nasal 1.0L Cannula 05/13 2353 Nasal 1.0L Cannula 05/13 2327 118/50 05/13 2230 122/38 05/13 2200 99.2 107 18 98 Nasal 1.0L Cannula 05/13 1749 99.0 110 20 128/78 99 Nasal 1.0L Cannula 05/13 1721 Nasal 1.0L Cannula 05/13 1638 99.0 112 22 151/82 99 Nasal 1.0L Cannula 05/13 1535 97 Room Air 05/13 1252 97.3 97 18 109/64 99 Nasal 2.0L Cannula 05/13 1036 97.6 114 22 136/74 98 Room Air Intake & Output 05/14 1600 05/14 0800 05/14 0000 Intake Total Output Total Balance Patient 158 lb Weight Weight Estimated Measurement Method Oxygen saturation 1 L 99% HNT exam shows no stridor exam for chest shows mildly diminished breath sounds there are no wheezes or crackles cardiac exam shows regular S1 and S2 without murmurs abdomen is soft nontender Last 48 Hrs of Labs/Yoshi: Laboratory Tests 05/14/17 0620: Sodium Pending, Potassium Pending, Chloride Pending, Carbon Dioxide Pending, Anion Gap Pending, BUN Pending, Creatinine Pending, BUN/Creatinine Ratio Pending , CBC w Diff Pending, WBC Pending, RBC Pending, Hgb Pending, Hct Pending, MCV Pending, MCH Pending, RDW Pending, Plt Count Pending, MPV Pending, Gran % Pending, Lymphocytes % Pending, Monocytes % Pending, Eosinophils % Pending, Basophils % Pending, Absolute Granulocytes Pending, Absolute Lymphocytes Pending , Absolute Monocytes Pending, Absolute Eosinophils Pending, Absolute Basophils Pending, PUBS MCHC Pending 05/13/17 1305: PT 20.4 H, INR 1.96 H, APTT > 120 *H 05/13/17 1131: Lactic Acid Cancelled 05/13/17 0852: Lactic Acid 2.1, Troponin I < 0.01, CBC w Diff NO MAN DIFF REQ, RBC 5.24, MCV 59.6 L, MCH 18.1 L, RDW 22.4 H, MPV 9.4, Gran % 89.0 H, Lymphocytes % 10.0 L, Monocytes % 0.8 L, Eosinophils % 0.1, Basophils % 0.1, Absolute Granulocytes 12.8 H, Absolute Lymphocytes 1.4, Absolute Monocytes 0.1, Absolute Eosinophils 0, Absolute Basophils 0, PUBS MCHC 30.4 L 05/13/17 0813: Sodium Cancelled, Potassium Cancelled, Chloride Cancelled, Carbon Dioxide Cancelled, Anion Gap Cancelled, BUN Cancelled, Creatinine Cancelled, Glucose Cancelled, Calcium Cancelled, Phosphorus Cancelled, Magnesium Cancelled, Total Bilirubin Cancelled, AST Cancelled, ALT Cancelled, Albumin Cancelled 05/13/17 0600: Lactic Acid 3.9 H 05/13/17 0300: pH 7.40, pCO2 32 L, pO2 117 H, HCO3 19 L, ABG O2 Sat (Measured) 97.0, P-50 ( Temp Corrected) Y, Carboxyhemoglobin 0.3 L, O2 Concentration % 2 LPM, Temperature 99.2, O2 Delivery Method N/C, Phlebotomy Draw Site LEFT RADIAL 05/13/17 0257: Lactic Acid 2.9 H, Troponin I < 0.01 05/13/17 0040: Lactic Acid 2.6 H 05/12/175: pH 7.35, pCO2 36, pO2 193 H, HCO3 20 L, ABG O2 Sat (Measured) 99.0, Carboxyhemoglobin 0.3 L, O2 Concentration % 35, Respiration Rate 20, O2 Delivery Method BIPAP, Vent Mode ST, Expiratory Pressure 6, Inspiratory Pressure 12, Phlebotomy Draw Site LEFT RADIAL 05/12/172140: Anion Gap 17 H, Estimated GFR > 60, BUN/Creatinine Ratio 17.0, Glucose 219 H, Lactic Acid 5.7 H, Calcium 8.6, Iron 30 L, TIBC 447, Ferritin 4.6 L, Total Bilirubin 0.1 L, Direct Bilirubin 0.1, AST 16, ALT 37, Alkaline Phosphatase 58, Troponin I < 0.01, Total Protein 7.3, Albumin 4.1, Amylase 88, Lipase 161, Total Beta HCG NEGATIVE, D-Dimer High Sensitivty < 200, CBC w Diff MAN DIFF ORDERED, RBC 5.32, MCV 60.2 L, MCH 18.3 L, RDW 22.5 H, MPV 9.6, Gran % 48.3, Lymphocytes % 38.2, Monocytes % 8.3, Eosinophils % 4.9, Basophils % 0.3, Absolute Granulocytes 10.3 H, Segmented Neutrophils 37 L, Band Neutrophils 2, Absolute Lymphocytes 8.1 H, Lymphocytes 43, Monocytes 11 H, Absolute Monocytes 1.8 H, Eosinophils 5, Absolute Eosinophils 1.1, Absolute Basophils 0.1, Metamyelocytes 2 H, Platelet Estimate ADEQUATE, Polychromasia 1+, Hypochromic- Microcytic 1+, Anisocytosis 3+, Microcytic Cells 3+, PUBS MCHC 30.4 L, Retic Count 3.19 H, Serum Alcohol < 10.0 05/12/172138: Lactic Acid Cancelled, Serum Alcohol Cancelled, Urine Color Cancelled, Urine Clarity Cancelled, Urine pH Cancelled, Ur Specific [place] Cancelled, Urine Protein Cancelled, Urine Ketones Cancelled, Urine Nitrite Cancelled, Urine Bilirubin Cancelled, Urine Urobilinogen Cancelled, Ur Leukocyte Esterase Cancelled, Ur Microscopic Cancelled, Urine Hemoglobin Cancelled, Urine Glucose Cancelled Microbiology 05/12 2233 NASOPHARYN: Influenza Virus A & B Rapid Smear - COMP Assessment/Plan Impression/Plan: 37-year-old with chronic asthma admitted with acute exacerbation in the setting of chronic URI and sinus symptoms. She continues to have nasal drainage and active reflux which awakens her from sleep. She is clinically improved Recommendations: DC 02 and assess saturation. Sinus x-rays. GI evaluation to better manage active reflux which is likely contributing to her asthma. Taper prednisone. Further evaluation of her chest pain by primary care team Consult Acknowledgment - Thank you for your consult request.
--- NOTE | 2017-05-14 12:00 | Cons- Gastroenterology ---
General Information and HPI Consulting Request Date of Consult: 05/14/17 Requested By: Marie Richmond MD Reason for Consult: 1. Atypical Chest Pain 2. Gastroesophageal Reflux 3. Anemia Source of Information: patient, Electronic Medical Record Exam Limitations: no limitations History of Present Illness: Patient is a 37 year old female with a past medical history of gastroesophageal reflux disease which had been previously controlled with pepcid 40 mg daily. Her reflux had been exacerbated by but after delivery it had been fairly well controlled for a long time on pepcid alone. She had tried Omeprazole in the past when she had breakthrough symptoms but did not have any relief with that. She says she has also tried Nexium which did not help. She has a long history of asthma which has been exacerbated by her reflux. She has recently gained quite a bit of weight which she attributes to multiple course of steroid which she has required for control of her asthma. Ms. Soriano was last admitted to [facility] , October 2016, for unstable angina and now was brought in by ambulance for an episode of severe respiratory distress. She reported that about 3 minutes after eating dinner (white rice, codfish and salmon), she started feeling nauseous, lightheaded and short of breath. She used her albuterol inhaler without any relief. Tried to take hot shower bath(usually helps her symptoms) but felt more short of breath and subsequently lost consciousness. In the past 3 weeks, she had take a Z-Cristobal and prednisone taper for an upper respiratory tract infection. She continues to have severe cough and has been using the albuterol inhaler more frequently for the past 3 weeks (almost 7-8 times per day in 2 times per night). She reports that in tandem her reflux symptoms have gotten worse with chad regurgitation of food stuff, dysphagia for solids and a feeling of subxiphoid fullness. She has not had any episodes of food impaction. She reports that she has started sleeping on three pillows because of her reflux. She has had no melena nor bright red blood per rectum. She has had no vomiting or hematemesis. She was treated with IV steroids and nebulizers upon admission. A chest CT was negative for any acute pulmonary process. Allergies/Medications Allergies: Coded Allergies: Iodinated Contrast- Oral and IV Dye (IODINATED CONTRAST MEDIA - ORAL AND) ( Severe, ANAPHYLAXIS 04/24/17) iodine (Severe, ANAPHYLAXIS 04/24/17) shellfish derived (Severe, ANAPHYLAXIS 04/24/17) Home Med List: Albuterol Sulfate (Proair Hfa) 90 MCG HFA.AER.AD 2 PUF INH PRN ASTHMA ( Reported) Albuterol Sulfate 2.5 MG/3 ML (0.083 %) VIAL.NEB 1 Vial INH/NEDA Q4P PRN ASTHMA (Reported) Atorvastatin Calcium 20 MG TABLET 1 TAB PO DAILY CHOLESTEROL (Reported) Budesonide/Formoterol Fumarate (Symbicort 160-4.5 Mcg Inhaler) 160 MCG-4.5 MCG/ ACTUATION HFA.AER.AD 2 PUF INH BID BREATHING PROBLEMS (Reported) Epinephrine 0.3 MG/0.3 ML AUTO.INJCT 0.3 MG IM AD PRN ALLERGIC REACTION ( Reported) Epinephrine (Epipen 2-Cristobal) 0.3 MG/0.3 ML AUTO.INJCT 1 INJ IM X1 PRN SEVERE ALLERGIC REACTION FOR SEVERE ALLERGIC REACTIONS AND CALL 911 Famotidine 40 MG TABLET 1 TAB PO DAILY GI (Reported) Ibuprofen 800 MG TABLET 1 TAB PO PRN PAIN/INFLAMMATION (Reported) Metoprolol Tartrate 25 MG TABLET 1 TAB PO DAILY HEART/BP (Reported) Montelukast Sodium 10 MG TABLET 1 TAB PO DAILY ALLERGIES (Reported) Prednisone 10 MG TABLET 1 TAB PO AD ASTHMA TAKE 4 TAB DAILY X 3 DAYS TAKE 3 TAB DAILY X 4 DAYS TAKE 2 TAB DAILY X 4 DAYS TAKE 1 TAB DAILY X 5 DAYS Topiramate 25 MG TABLET 1 TAB PO BID MIGRAINES (Reported) Current Medications: Current Medications Sig/Radha Start time Last Medication Dose Route Stop Time Status Admin Acetaminophen 650 MG Q6P PRN 05/13 0045 AC PO Albuterol Sulfate 3 ML EVERY 4 HRS/AWAKE 05/14 0800 AC 05/14 INH 1151 Albuterol Sulfate 2 PUF Q4-6 PRN PRN 05/13 2045 AC INH Atorvastatin Calcium 20 MG 1700 05/13 1700 AC 05/13 PO 1815 Diphenhydramine HCl 50 MG Q8 05/13 0600 AC 05/14 IV 0602 Enoxaparin Sodium 40 MG DAILY 05/13 1000 AC 05/14 SC 1011 Famotidine 20 MG BID 05/13 1000 DC 05/13 IV 2201 Guaifenesin 600 MG Q12 05/13 1548 AC 05/14 PO 1011 Heparin Sodium 25,000 UNIT Q24H 05/13 0500 DC 05/13 (Porcine) IV 0524 Sodium Chloride 500 ML Ibuprofen 600 MG Q6P PRN 05/13 0045 AC PO Ipratropium [place] 2.5 ML EVERY 4 HRS/AWAKE 05/14 0800 AC 05/14 INH 1151 Methylprednisolone 40 MG Q8 05/13 2030 DC 05/14 IV 0601 Methylprednisolone 40 MG Q12P PRN 05/13 1415 DC IV Methylprednisolone 40 MG Q6 05/13 0600 DC 05/13 IV 1251 Omeprazole 40 MG DAILY AC 05/14 0919 AC 05/14 PO 1011 Ondansetron HCl 4 MG Q6P PRN 05/13 0045 AC IV Oxycodone/ 2 TAB Q6P PRN 05/13 0045 AC Acetaminophen PO Polyethylene Glycol 17 GM DAILY PRN 05/13 1600 AC PO Prednisone 40 MG DAILY 05/15 1000 AC PO Prednisone 40 MG DAILY 05/14 1000 DC PO Sodium Chloride 1,000 ML Q6H 05/13 0100 DC 05/13 IV 1251 Past History Travel History Traveled to [place] past 21 day No Medical History Blood Transfusion Hx: No Neurological: MIGRAINES EENT: NONE Cardiovascular: NONE, CARDIAC CATH 2017 Respiratory: asthma Gastrointestinal: GERD Hepatic: NONE Renal: NONE Musculoskeletal: NONE Psychiatric: NONE Endocrine: NONE Blood Disorders: anemia Cancer(s): NONE 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 Home Services at Home: NONE Smoking Status: Never Smoked ETOH Use: denies use Illicit Drug Use: denies illicit drug use Functional Ability ADLs Independent: dressing, eating, toileting, bathing. Ambulation: independent IADLs Independent: shopping, housework, finances, food prep, telephone, transportation , medication admin. Review of Systems Review of Systems Constitutional: Denies: no symptoms. EENTM: Denies: no symptoms. Cardiovascular: Reports: chest pain, palpitations. Respiratory: Reports: see HPI. GI: Reports: see HPI. Genitourinary: Denies: no symptoms. Musculoskeletal: Denies: no symptoms. Skin: Denies: no symptoms. Neurological/Psychological: Denies: no symptoms. Hematologic/Endocrine: Denies: no symptoms. Exam & Diagnostic Data Vital Signs and I&O Vital Signs Date Time Temp Pulse Resp B/P B/P Pulse O2 O2 Flow FiO2 Mean Ox Delivery Rate 05/14 1159 97 Room Air 05/14 0926 96 Nasal 1.0L Cannula 05/14 0800 99 Nasal 1.0L Cannula 05/14 0607 98.6 86 18 110/64 99 Nasal 1.0L Cannula 05/14 0333 96 Nasal 1.0L Cannula 05/14 0000 Nasal 1.0L Cannula 05/13 2353 Nasal 1.0L Cannula 05/13 2327 118/50 05/13 2230 122/38 05/13 2200 99.2 107 18 98 Nasal 1.0L Cannula 05/13 1749 99.0 110 20 128/78 99 Nasal 1.0L Cannula 05/13 1721 Nasal 1.0L Cannula 05/13 1638 99.0 112 22 151/82 99 Nasal 1.0L Cannula 05/13 1535 97 Room Air 05/13 1252 97.3 97 18 109/64 99 Nasal 2.0L Cannula Intake & Output 05/14 1600 05/14 0400 05/13 1600 05/13 0400 05/12 1600 05/12 0400 Intake Total Output Total Balance Patient 158 lb 158 lb 175 lb Weight Weight Estimated Reported by Patient Estimated Measurement Method Physical Exam General Appearance: alert, awake, comfortable Head: atraumatic, normal appearance Eyes: Bilateral: normal appearance. Ears, Nose, Throat: hearing grossly normal Neck: supple, full range of motion Respiratory: normal breath sounds, lungs clear Cardiovascular: regular rate/rhythm, Normal S1 and S2 without Rub, Murmur or Gallop Gastrointestinal: normal bowel sounds, soft, non-tender Extremities: normal inspection Neurologic/Psych: awake, alert, oriented x 3, normal mood/affect Cranial Nerves: Cranial Nerves II-XII grossly intact Skin: intact, normal color, warm/dry Results Pertinent Lab Results: Laboratory Tests 05/14 05/13 05/13 0620 1305 1131 Chemistry Sodium (137 - 145 mmol/L) 142 Potassium (3.5 - 5.1 mmol/L) 4.5 Chloride (98 - 107 mmol/L) 110 H Carbon Dioxide (22 - 30 mmol/L) 18 L Anion Gap (5 - 16) 14 BUN (7 - 17 mg/dL) 16 Creatinine (0.5 - 1.0 mg/dL) 0.5 Estimated GFR (>60 ml/min) > 60 BUN/Creatinine Ratio (7 - 25 %) 32.0 H Lactic Acid Cancelled Coagulation PT (9.4 - 12.5 SEC) 20.4 H INR (0.90 - 1.19) 1.96 H APTT (25 - 37 SEC) > 120 *H Hematology CBC w Diff NO MAN DIFF REQ WBC (4.8 - 10.8 /CUMM) 25.8 H RBC (4.20 - 5.40 /CUMM) 5.00 Hgb (12.0 - 16.0 G/DL) 9.0 L Hct (37 - 47 %) 30.0 L MCV (81.0 - 99.0 FL) 60.0 L MCH (27.0 - 31.0 PG) 18.0 L RDW (11.5 - 14.5 %) 21.9 H Plt Count (130 - 400 /CUMM) 253 MPV (7.4 - 10.4 FL) 10.0 Gran % (42.2 - 75.2 %) 84.9 H Lymphocytes % (20.5 - 51.1 %) 6.3 L Monocytes % (1.7 - 9.3 %) 8.6 Eosinophils % (0 - 5 %) 0.1 Basophils % (0.0 - 2.0 %) 0.1 Absolute Granulocytes (1.4 - 6.5 /CUMM) 21.9 H Absolute Lymphocytes (1.2 - 3.4 /CUMM) 1.6 Absolute Monocytes (0.10 - 0.60 /CUMM) 2.2 H Absolute Eosinophils (0.0 - 0.7 /CUMM) 0 Absolute Basophils (0.0 - 0.2 /CUMM) 0 PUBS MCHC (33.0 - 37.0 G/DL) 30.1 L 05/13 05/13 05/13 0852 0813 0600 Chemistry Sodium Cancelled Potassium Cancelled Chloride Cancelled Carbon Dioxide Cancelled Anion Gap Cancelled BUN Cancelled Creatinine Cancelled Glucose Cancelled Lactic Acid (0.7 - 2.1 mmol/L) 2.1 3.9 H Calcium Cancelled Phosphorus Cancelled Magnesium Cancelled Total Bilirubin Cancelled AST Cancelled ALT Cancelled Troponin I (< 0.11 ng/ml) < 0.01 Albumin Cancelled Hematology CBC w Diff NO MAN DIFF REQ WBC (4.8 - 10.8 /CUMM) 14.3 H RBC (4.20 - 5.40 /CUMM) 5.24 Hgb (12.0 - 16.0 G/DL) 9.5 L Hct (37 - 47 %) 31.2 L MCV (81.0 - 99.0 FL) 59.6 L MCH (27.0 - 31.0 PG) 18.1 L RDW (11.5 - 14.5 %) 22.4 H Plt Count (130 - 400 /CUMM) 256 MPV (7.4 - 10.4 FL) 9.4 Gran % (42.2 - 75.2 %) 89.0 H Lymphocytes % (20.5 - 51.1 %) 10.0 L Monocytes % (1.7 - 9.3 %) 0.8 L Eosinophils % (0 - 5 %) 0.1 Basophils % (0.0 - 2.0 %) 0.1 Absolute Granulocytes (1.4 - 6.5 /CUMM) 12.8 H Absolute Lymphocytes (1.2 - 3.4 /CUMM) 1.4 Absolute Monocytes (0.10 - 0.60 /CUMM) 0.1 Absolute Eosinophils (0.0 - 0.7 /CUMM) 0 Absolute Basophils (0.0 - 0.2 /CUMM) 0 PUBS MCHC (33.0 - 37.0 G/DL) 30.4 L 05/13 05/13 05/13 05/12 0300 0257 0040 2205 Blood Gas pH (7.35 - 7.45 PH) 7.40 7.35 pCO2 (35 - 45 TORR) 32 L 36 pO2 (80 - 100 TORR) 117 H 193 H HCO3 (21 - 28 MEQ/L) 19 L 20 L ABG O2 Sat (Measured) (>96.0 %) 97.0 99.0 P-50 (Temp Corrected) Y Carboxyhemoglobin (1.5 - 5.0 %) 0.3 L 0.3 L O2 Concentration % 2 LPM 35 Temperature (97.0 - 100.0 FARH) 99.2 Respiration Rate (BPM) 20 O2 Delivery Method N/C BIPAP Vent Mode ST Expiratory Pressure (CM H2O P) 6 Inspiratory Pressure (CM H2O P) 12 Chemistry Lactic Acid (0.7 - 2.1 mmol/L) 2.9 H 2.6 H Troponin I (< 0.11 ng/ml) < 0.01 Miscellaneous Phlebotomy Draw Site LEFT RADIAL LEFT RADIAL 05/12 Chemistry Sodium (137 - 145 mmol/L) 141 Potassium (3.5 - 5.1 mmol/L) 4.0 Chloride (98 - 107 mmol/L) 105 Carbon Dioxide (22 - 30 mmol/L) 19 L Anion Gap (5 - 16) 17 H BUN (7 - 17 mg/dL) 17 Creatinine (0.5 - 1.0 mg/dL) 1.0 Estimated GFR (>60 ml/min) > 60 BUN/Creatinine Ratio (7 - 25 %) 17.0 Glucose (65 - 99 mg/dL) 219 H Lactic Acid (0.7 - 2.1 mmol/L) 5.7 H Cancelled Calcium (8.4 - 10.2 mg/dL) 8.6 Iron (37 - 170 ug/dL) 30 L TIBC (265 - 497 ug/dL) 447 Ferritin (6.24 - 137 ng/mL) 4.6 L Total Bilirubin (0.2 - 1.3 mg/dL) 0.1 L Direct Bilirubin (< 0.4 mg/dL) 0.1 AST (14 - 36 U/L) 16 ALT (9 - 52 U/L) 37 Alkaline Phosphatase (<127 U/L) 58 Troponin I (< 0.11 ng/ml) < 0.01 Total Protein (6.3 - 8.2 g/dL) 7.3 Albumin (3.5 - 5.0 g/dL) 4.1 Amylase (30 - 110 U/L) 88 Lipase (23 - 300 U/L) 161 Total Beta HCG (NEGATIVE) NEGATIVE Coagulation D-Dimer High Sensitivty (0 - 243 ng/ml) < 200 Hematology CBC w Diff MAN DIFF ORDERED WBC (4.8 - 10.8 /CUMM) 21.3 H RBC (4.20 - 5.40 /CUMM) 5.32 Hgb (12.0 - 16.0 G/DL) 9.7 L Hct (37 - 47 %) 32.0 L MCV (81.0 - 99.0 FL) 60.2 L MCH (27.0 - 31.0 PG) 18.3 L RDW (11.5 - 14.5 %) 22.5 H Plt Count (130 - 400 /CUMM) 322 MPV (7.4 - 10.4 FL) 9.6 Gran % (42.2 - 75.2 %) 48.3 Lymphocytes % (20.5 - 51.1 %) 38.2 Monocytes % (1.7 - 9.3 %) 8.3 Eosinophils % (0 - 5 %) 4.9 Basophils % (0.0 - 2.0 %) 0.3 Absolute Granulocytes (1.4 - 6.5 /CUMM) 10.3 H Segmented Neutrophils (42.2 - 75.2 %) 37 L Band Neutrophils (0.0 - 5.0 %) 2 Absolute Lymphocytes (1.2 - 3.4 /CUMM) 8.1 H Lymphocytes (20.5 - 51.1 %) 43 Monocytes (1.7 - 9.3 %) 11 H Absolute Monocytes (0.10 - 0.60 /CUMM) 1.8 H Eosinophils (0 - 5.0 %) 5 Absolute Eosinophils (0.0 - 0.7 /CUMM) 1.1 Absolute Basophils (0.0 - 0.2 /CUMM) 0.1 Metamyelocytes (0.0 - 1.0 %) 2 H Platelet Estimate (ADEQUATE) ADEQUATE Polychromasia 1+ Hypochromic-Microcytic 1+ Anisocytosis 3+ Microcytic Cells 3+ PUBS MCHC (33.0 - 37.0 G/DL) 30.4 L Retic Count (0.5 - 2.0 %) 3.19 H Toxicology Serum Alcohol (<10 MG/DL) < 10.0 Cancelled Urines Urine Color Cancelled Urine Clarity Cancelled Urine pH Cancelled Ur Specific [place] Cancelled Urine Protein Cancelled Urine Ketones Cancelled Urine Nitrite Cancelled Urine Bilirubin Cancelled Urine Urobilinogen Cancelled Ur Leukocyte Esterase Cancelled Ur Microscopic Cancelled Urine Hemoglobin Cancelled Urine Glucose Cancelled Assessment/Plan Assessment/Recommendations: IMPRESSION: 1. Anemia -- ? due to esophagitis or due to menses 2. Asthma -- exacerbated by GERD 3. Obesity, weight gain -- discussed with patient that truncal obesity can worsen gastroesophageal reflux 4. Dysphagia / Regurgitation -- ? esophageal stricture / hiatal hernia RECOMMENDATIONS: 1. NPO after midnight 2. Hold Lovenox 3. Consider trial of Protonix pending results of EGD 4. After EGD consider iron supplementation Consult Acknowledgment - Thank you for your consult request.
--- NOTE | 2017-05-14 12:22 | Cons- Cardiology ---
General Information and HPI Consulting Request Date of Consult: 05/14/17 Requested By: Marie Richmond MD History of Present Illness: Gabriel is a 37 year old female with history of asthma and migraine who was initially seen by me for evaluation of chest discomfort. She ultimately underwent a cardiac catheterization for unequivocal diagnosis and was found to have clean coronaries. This patient has also had repeated episodes of tachycardia. Shortly after eating this patient became acutely short of breath with no relief by her Albuterol inhalers. She had been treated for an upper respiratory infection during the preceeding days and was on prednisone and a Z-pack. When EMS arrived the patient was in respiratory distress and passed out. She now reports some chest discomfort and remains tachycardic. It should be noted that this patient also has chronic anemia. To review this patient's prior history, she reported a moderate chest pressure that radiated to her left arm accompanied by a superimposed sharp discomfort. The discomfort was exacerbated by physical exertion and lessened with rest. It seemed to improved with NTG although it would not completely cj with this therapy. This discomfort was associated with nausea and there was some mild shortness of breath. There was no respiratory component to this discomfort.We did opt to risk stratify this patient with a stress test which was negative for ischemia. In consideration of persistent symptoms she underwent a cardiac catheterization which was normal. The patient's echocardiogram shows a normal EF of 60% with trace MR, TR and PI. Allergies/Medications Allergies: Coded Allergies: Iodinated Contrast- Oral and IV Dye (IODINATED CONTRAST MEDIA - ORAL AND) ( Severe, ANAPHYLAXIS 04/24/17) iodine (Severe, ANAPHYLAXIS 04/24/17) shellfish derived (Severe, ANAPHYLAXIS 04/24/17) Home Med List: Albuterol Sulfate (Proair Hfa) 90 MCG HFA.AER.AD 2 PUF INH PRN ASTHMA ( Reported) Albuterol Sulfate 2.5 MG/3 ML (0.083 %) VIAL.NEB 1 Vial INH/NEDA Q4P PRN ASTHMA (Reported) Atorvastatin Calcium 20 MG TABLET 1 TAB PO DAILY CHOLESTEROL (Reported) Budesonide/Formoterol Fumarate (Symbicort 160-4.5 Mcg Inhaler) 160 MCG-4.5 MCG/ ACTUATION HFA.AER.AD 2 PUF INH BID BREATHING PROBLEMS (Reported) Epinephrine 0.3 MG/0.3 ML AUTO.INJCT 0.3 MG IM AD PRN ALLERGIC REACTION ( Reported) Epinephrine (Epipen 2-Cristobal) 0.3 MG/0.3 ML AUTO.INJCT 1 INJ IM X1 PRN SEVERE ALLERGIC REACTION FOR SEVERE ALLERGIC REACTIONS AND CALL 911 Famotidine 40 MG TABLET 1 TAB PO DAILY GI (Reported) Ibuprofen 800 MG TABLET 1 TAB PO PRN PAIN/INFLAMMATION (Reported) Metoprolol Tartrate 25 MG TABLET 1 TAB PO DAILY HEART/BP (Reported) Montelukast Sodium 10 MG TABLET 1 TAB PO DAILY ALLERGIES (Reported) Prednisone 10 MG TABLET 1 TAB PO AD ASTHMA TAKE 4 TAB DAILY X 3 DAYS TAKE 3 TAB DAILY X 4 DAYS TAKE 2 TAB DAILY X 4 DAYS TAKE 1 TAB DAILY X 5 DAYS Topiramate 25 MG TABLET 1 TAB PO BID MIGRAINES (Reported) Review of Systems Review of Systems: wheezing Past History Travel History Traveled to [place] past 21 day No Medical History Blood Transfusion Hx: No Neurological: MIGRAINES EENT: NONE Cardiovascular: NONE, CARDIAC CATH 2017 Respiratory: asthma Gastrointestinal: GERD Hepatic: NONE Renal: NONE Musculoskeletal: NONE Psychiatric: NONE Endocrine: NONE Blood Disorders: anemia Cancer(s): NONE 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 Home Services at Home: NONE Smoking Status: Never Smoked ETOH Use: denies use Illicit Drug Use: denies illicit drug use Functional Ability ADLs Independent: dressing, eating, toileting, bathing. Ambulation: independent IADLs Independent: shopping, housework, finances, food prep, telephone, transportation , medication admin. Exam & Diagnostic Data Vital Signs and I&O Vital Signs Date Time Temp Pulse Resp B/P B/P Pulse O2 O2 Flow FiO2 Mean Ox Delivery Rate 05/14 1442 98.4 82 20 98/58 97 05/14 1159 97 Room Air 05/14 0926 96 Nasal 1.0L Cannula 05/14 0800 99 Nasal 1.0L Cannula 05/14 0607 98.6 86 18 110/64 99 Nasal 1.0L Cannula 05/14 0333 96 Nasal 1.0L Cannula 05/14 0000 Nasal 1.0L Cannula 05/13 2353 Nasal 1.0L Cannula 05/13 2327 118/50 01/22 2230 122/38 05/13 2200 99.2 107 18 98 Nasal 1.0L Cannula 05/13 1749 99.0 110 20 128/78 99 Nasal 1.0L Cannula Intake & Output 05/14 1600 05/14 0800 05/14 0000 05/13 1600 05/13 0800 05/13 0000 Intake Total 550 Output Total Balance 550 Intake, Oral 550 Patient 158 lb 158 lb 175 lb Weight Weight Estimated Reported by Patient Estimated Measurement Method Physical Exam: General: WD/WN female in NAD; alert and oriented x 3 HEENT: NC/AT, PERRL, EOMI Neck: no JVD, no carotid bruit Heart: tachycardic w/o murmur Lungs: clear bilaterally ABdomen: soft, NT, +ve bowel sounds Extremities: no edema Assessment/Plan Assessment/Plan * This patient had an episode of severe bronchospasm; possibly bought about by an anaphylactic reaction. I think her chest discomfort is related to bronchspasm and I have a very low suspicion of an ACS. This patient was on a beta manjit which should be stopped due to its propensity to worsen bronchospasm. She may well be tachycardic from the sudden stopping of this drug. In addition, Albuterol may also make her tachycardic. Finally, her anemia may also be a contributor. Check TFT's. If her BP rises and she remains tachycardic then we will consider adding a calcium channel manjit. I would not do this now due to her borderline blood pressure. * Consider an anemia workup. Consult Acknowledgment - Thank you for your consult request.
[2017-05-14 14:42] VITALS: BP 98/58
--- NOTE | 2017-05-14 18:58 | RADIOLOGY REPORT ---
EXAMINATION: XR SINUSES CLINICAL INFORMATION: Sinus congestion. COMPARISON: None TECHNIQUE: 3 views of the paranasal sinuses are provided. FINDINGS: The paranasal sinuses and mastoid air cells are clear. There are no osseous lesions. IMPRESSION: Clear paranasal sinuses.
[2017-05-14 22:00] VITALS: BP 110/72
[2017-05-15 06:00] VITALS: BP 100/68
--- NOTE | 2017-05-15 06:36 | PN- Housestaff ---
Patt PEREZ,Monica 05/15/17 0635: Subjective Follow-up For: Acute exacerbation of asthma Complaints: no complaints Tele-Events Since Last Visit: Sinus rhythm heart rate 70 Subjective: Patient was seen and examined by me at bedside today. No overnight events. She said she slept well overnight with no episodes of shortness of breath. She denies chest pain, chest pressure, shortness of breath, nausea, vomiting. Review of Systems Constitutional: Reports: no symptoms. Cardiovascular: Reports: no symptoms. Respiratory: Reports: no symptoms. Gastrointestinal: Reports: no symptoms. Genitourinary: Reports: no symptoms. Musculoskeletal: Reports: no symptoms. Skin: Reports: no symptoms. Objective Last 24 Hrs of Vital Signs/I&O Vital Signs Date Time Temp Pulse Resp B/P B/P Pulse O2 O2 Flow FiO2 Mean Ox Delivery Rate 05/15 1021 96 Room Air Room Air 05/15 0600 97.7 88 16 100/68 97 05/15 0000 Room Air Room Air 05/14 220 98.2 91 14 110/72 97 Room Air 05/14 1442 98.4 82 20 98/58 97 05/14 1159 97 Room Air Intake & Output 05/15 1600 05/15 0800 05/15 0000 Intake Total 800 Output Total Balance 800 Intake, Oral 800 Physical Exam General Appearance: Alert, Oriented X3, Cooperative, No Acute Distress Cardiovascular: Regular Rate, Normal S1, Normal S2 Lungs: Clear to Auscultation, Normal Air Movement Abdomen: Normal Bowel Sounds, Soft, No Tenderness Neurological: Normal Speech, Strength at 5/5 X4 Ext, Normal Tone, Sensation Intact Extremities: No Cyanosis, No Edema, Normal Pulses Current Medications: Current Medications Sig/Radha Start time Last Medication Dose Route Stop Time Status Admin Acetaminophen 650 MG Q6P PRN 05/13 0045 AC PO Albuterol Sulfate 3 ML BID 05/14 2200 AC 05/15 INH 1021 Albuterol Sulfate 3 ML EVERY 4 HRS/AWAKE 05/14 0800 DC 05/14 INH 1151 Albuterol Sulfate 2 PUF Q4-6 PRN PRN 05/13 2045 AC INH Atorvastatin Calcium 20 MG 1700 05/13 1700 AC 05/14 PO 1728 Diphenhydramine HCl 50 MG Q8 PRN 05/14 2116 AC 05/14 IV 2123 Diphenhydramine HCl 50 MG Q8 05/13 0600 DC 05/14 IV 0602 Enoxaparin Sodium 40 MG DAILY 05/13 1000 DC 05/14 SC 1011 Guaifenesin 600 MG Q12 05/13 1548 AC 05/14 PO 2119 Ibuprofen 600 MG Q6P PRN 05/13 0045 AC 05/15 PO 0634 Ipratropium [place] 2.5 ML EVERY 4 HRS/AWAKE 05/14 0800 DC 05/14 INH 1151 Omeprazole 40 MG DAILY AC 05/14 0919 AC 05/15 PO 0633 Ondansetron HCl 4 MG Q6P PRN 05/13 0045 AC IV Oxycodone/ 2 TAB Q6P PRN 05/13 0045 AC Acetaminophen PO Polyethylene Glycol 0.5 GAL ONCE ONE 05/15 0500 CAN PO 05/15 0501 Polyethylene Glycol 0.5 GAL 1600,0500 05/14 1600 DC PO 05/15 0501 Polyethylene Glycol 17 GM DAILY PRN 05/13 1600 AC PO Prednisone 40 MG DAILY 05/15 1000 AC PO Last 24 Hrs of Lab/Yoshi Results Last 24 Hrs of Labs/Mics: Laboratory Tests 05/15/17 0630: Anion Gap 12, Estimated GFR > 60, BUN/Creatinine Ratio 32.9 H, CBC w Diff NO MAN DIFF REQ, RBC 5.19, MCV 59.8 L, MCH 18.1 L, RDW 22.0 H, MPV 10.0, Gran % 67.4, Lymphocytes % 26.7, Monocytes % 5.0, Eosinophils % 0.1, Basophils % 0.8, Absolute Granulocytes 12.6 H, Absolute Lymphocytes 5.0 H, Absolute Monocytes 0.9 H, Absolute Eosinophils 0, Absolute Basophils 0.1, PUBS MCHC 30.2 L, Thyroid Peroxidase Ab 39 Assessment/Plan Assessment: Ms. Soriano is a 37-year-old lady with past medical history significant for asthma, migraine, GERD, chronic anemia and recently admitted to [facility] , October 2016, for unstable angina who was brought in by ambulance for an episode of severe respiratory distress found to be in acute exacerbation of asthma, admitted to telemetry for further evaluation and management Assessment and Plan: Respiratory distress: Patient doesn't have respiratory distress since admission. Patient has been ruled out for PE. She is weaned off from oxygen. She is on tapering dose of prednisone. Plan for discharge today with tapering dose of prednisone and follow up with her store mgr, contractor broomcorn threshing, force variation equipment tender [in view of TSH 0.11 and follow-up with TPO antibodies as outpatient]. Her sinus x-ray taken yesterday was normal. 2. Anemia: Patient has hemoglobin 9.7 with MCV 60. Patient has history of alpha thalassemia, evaluated in the past. Patient has never seen a manager grocery. She has been followed up by her primary care physician. She is on iron supplements. Off note SHE gives history of excessive menstrual bleeding. She has been evaluated in the past by her drafter landscape who suggested progesterone pills, but patient didn't see any improvement and eventually discontinued the treatment. Patient is planned for upper endoscopy today. 3. GERD Patient is on omeprazole. . SC Lovenox daily Regular Full Code. Plan-awaiting upper endoscopy report, gastroenterology recommendation, discharge home with tapering dose of prednisone. Problem List: 1. GERD 2. Asthma 3. Anemia Pain Ratin Pain Location: NONE Pain Goal: Remain pain free Pain Plan: TYLENOL Tomorrow's Labs & Rationales: NONE Marie Richmond MD 05/15/17 1200: Attending MD Review Statement Attending Statement Attending MD Statement: examined this patient, discuss w/resident/PA/RESTAURANT OPERATIONS MANAGER, agreed w/resident/PA/RESTAURANT OPERATIONS MANAGER, reviewed EMR data (avail), discussed with nursing, discussed with case mgmt, amended to note Attending Assessment/Plan: Patient seen and examined. Resting comfortably and not in any acute distress. No issues overnight. No events on telemetry monitoring. She feels well today. Denies chest pain or shortness of breath. Denies palpitations. Ambulating freely around the unit. Hemoglobin level has been stable overnight. Numbers are improved from 9.0 yesterday to 9.4 today. She was seen by the gastroenterology service yesterday and is scheduled to undergo an EGD today. Following the procedure if no further inpatient interventions are recommended, she may be discharged home to follow-up with the cardiology service and pulmonology service as an outpatient. Problems: 1. Acute hypoxic respiratory failure. 2. Asthma exacerbation 3. Chest pain; atypical 4. GERD 5. Anemia; multifactorial secondary to thalassemia, chronic blood loss from menorrhagia. Plan: -Patient scheduled for EGD today after which he may be discharged home. -She is to follow-up with her cardiology and pulmonology service as an outpatient -She is to continue follow-up with her gynecology service as an outpatient. -
--- NOTE | 2017-05-15 08:16 | PN- Pulmonary ---
Subjective HPI/Critical Care Issues: Patient shortness breath is markedly improved. She is now on room air. Objective Current Medications: Current Medications Sig/Radha Start time Last Medication Dose Route Stop Time Status Admin Acetaminophen 650 MG Q6P PRN 05/13 0045 AC PO Albuterol Sulfate 3 ML BID 05/14 2199 AC INH Albuterol Sulfate 3 ML EVERY 4 HRS/AWAKE 05/14 0800 DC 05/14 INH 1151 Albuterol Sulfate 2 PUF Q4-6 PRN PRN 05/13 2045 AC INH Atorvastatin Calcium 20 MG 1700 05/13 1700 AC 05/14 PO 1728 Diphenhydramine HCl 50 MG Q8 PRN 05/14 2116 AC 05/14 IV 2123 Diphenhydramine HCl 50 MG Q8 05/13 0600 DC 05/14 IV 0602 Enoxaparin Sodium 40 MG DAILY 05/13 1000 DC 05/14 SC 1011 Famotidine 20 MG BID 05/13 1000 DC 05/13 IV 2201 Guaifenesin 600 MG Q12 05/13 1548 AC 05/14 PO 2119 Ibuprofen 600 MG Q6P PRN 05/13 0045 AC 05/15 PO 0634 Ipratropium [place] 2.5 ML EVERY 4 HRS/AWAKE 05/14 0800 DC 05/14 INH 1151 Methylprednisolone 40 MG Q8 05/13 2030 DC 05/14 IV 0601 Omeprazole 40 MG DAILY AC 05/14 0919 AC 05/15 PO 0633 Ondansetron HCl 4 MG Q6P PRN 05/13 0045 AC IV Oxycodone/ 2 TAB Q6P PRN 05/13 0045 AC Acetaminophen PO Polyethylene Glycol 0.5 GAL ONCE ONE 05/15 0500 CAN PO 05/15 0501 Polyethylene Glycol 0.5 GAL 1600,0500 05/14 1600 DC PO 05/15 0501 Polyethylene Glycol 17 GM DAILY PRN 05/13 1600 AC PO Prednisone 40 MG DAILY 05/15 1000 AC PO Prednisone 40 MG DAILY 05/14 1000 DC PO Vital Signs & I&O Last 24 Hrs of Vitals and I&O: Vital Signs Date Time Temp Pulse Resp B/P B/P Pulse O2 O2 Flow FiO2 Mean Ox Delivery Rate 05/15 0600 97.7 88 16 100/68 97 05/15 0000 Room Air Room Air 05/14 2199 98.2 91 14 110/72 97 Room Air 05/14 1442 98.4 82 20 98/58 97 05/14 1159 97 Room Air 05/14 0926 96 Nasal 1.0L Cannula Intake & Output 05/15 1600 05/15 0800 05/15 0000 Intake Total 800 Output Total Balance 800 Intake, Oral 800 Room air oxygen saturation 97% exam for chest shows clear lung gutiérrez are no wheezes cardiac exam shows a regular S1 and S2 without murmurs Impression/Plan Impression/Plan Impression/Plan: 37-year-old with chronic asthma admitted with acute exacerbation in the setting of chronic URI and sinus symptoms. She continues to have nasal drainage and active reflux which awakens her from sleep. She is clinically improved and prednisone should be tapered Recommendations: DC 02 and assess saturation. GI evaluation to better manage active reflux which is likely contributing to her asthma. Taper prednisone. Further evaluation of her chest pain by primary care team no further pulmonary suggestions
[2017-05-15 08:40] LABS: ABSOLUTE BASOPHIL COUNT 0.1 /CUMM (0.0-0.2); ABSOLUTE EOSINOPHIL COUNT 0 /CUMM (0.0-0.7); ABSOLUTE GRANULOCYTE CT 12.6 /CUMM (1.4-6.5); ABSOLUTE MONOCYTE COUNT 0.9 /CUMM (0.10-0.60); BASOPHIL % 0.8 % (0.0-2.0); EOSINOPHIL % 0.1 % (0-5); GRANULOCYTE % 67.4 % (42.2-75.2); MEAN CORPUSCULAR HGB 18.1 PG (27.0-31.0); MEAN CORPUSCULAR HGB CONC 30.2 G/DL (33.0-37.0); MEAN CORPUSCULAR VOLUME 59.8 FL (81.0-99.0); PLATELET COUNT 249 /CUMM (130-400); RED BLOOD CELL CT 5.19 /CUMM (4.20-5.40)
[2017-05-15] MEDS ORDERED: GUAIFENESIN ER600 MG PO (09:07)
[2017-05-15] MEDS ORDERED: OMEPRAZOLE20 M2 PO (09:07)
[2017-05-15] MEDS ORDERED: PREDNISONE10 M2 PO (09:09)
--- NOTE | 2017-05-15 09:10 | Patient Discharge Instructions ---
Discharge Instructions General Discharge Information You were seen/treated for: Acute severe asthma exacerbation Special Instructions: Please follow up with your primary care physician 1-2 weeks after discharge. please take steroid/prednisone on a tapering dose as instructed. Please follow-up with your collar stitcher regarding menorrhagia management. Please follow-up with endocrinology regarding your thyroid level and follow-up with TPO antibodies level. Please return to emergency if symptoms worsen. Please follow-up with shoe dyer Dr. Bee as outpatient. Diet Continue normal diet: Yes Recommended Diet: Heart Healthy Activity Full Activity/No Limits: Yes Acute Coronary Syndrome Inclusion Criteria At DC or during hospital stay patient has or had the following: ACS DIAGNOSIS No Discharge Core Measures Meds if any: Prescribed or Continued at Discharge Meds if any: NOT Prescribed or Continued at Discharge Congestive Heart Failure Inclusion Criteria At DC or during hospital stay patient has or had the following: CHF DIAGNOSIS No Discharge Core Measures Meds if any: Prescribed or Continued at Discharge Meds if any: NOT Prescribed or Continued at Discharge Cerebrovascular accident Inclusion Criteria At DC or during hospital stay patient has or had the following: CVA/TIA Diagnosis No Discharge Core Measures Meds if any: Prescribed or Continued at Discharge Meds if any: NOT Prescribed or Continued at Discharge Venous thromboembolism Inclusion Criteria VTE Diagnosis No VTE Type NONE VTE Confirmed by (Test) NONE Discharge Core Measures - Per Current guidelines, there needs to be overlap - treatment for the first 5 days of Warfarin therapy. - If discharged on Warfarin prior to 5 days of - overlap therapy, the patient will need to be - assessed for post discharge needs including - *Post discharge parental anticoagulation - *Warfarin and/or parental anticoagulation education - *Follow up date to check INR post discharge At least 5 days overlap therapy as Inpatient No Meds if any: Prescribed or Continued at Discharge Note: Overlap Therapy is Warfarin and Anticoagulant Meds if any: NOT Prescribed or Continued at Discharge
[2017-05-15 09:14] LABS: WHITE BLOOD CELL COUNT 18.7 /CUMM (4.8-10.8)
[2017-05-15] MEDS ORDERED: FERROUS SULFAT324 MG PO ×2 (09:53→10:14)
--- NOTE | 2017-05-15 09:57 | PN- Student ---
Subjective Subjective: Gabriel is a 37y female with a hx of migraines, GERD, alpha thalassemia, and asthma who was admitted to our service on 05/13 with trouble breathing following dinner that evening. Overnight, she was stable and reports tachycardia and mild lightheadedness when she gets up to use the restroom. She states she has been hydrating by drinking alot of water and that her BP is usually around 110/60 at health fairs. She further admits to having a mild MOORE, but thinks its secondary to suddenly stopping her medications. She denies CP, chest pressure, dizziness, acid reflux or abdominal pain. GI was consulted and an EGD is scheduled for today around 1300. Objective Objective: Physical Examination: General: AOx3, cooperative and polite. Heart: Tachycardic, but regular rythym and no murmurs/rubs/gallops Lungs: CTAB, mildly diminished breath sounds b/l Abdomen: Soft, protuberant, non-tender Anemia: No conjunctival pallor; 2s capillary refill Sinus radiographs: Paranasal sinuses and mastoid air cells clear with no osseus lesions Echo: Pulmonary artery SBP = 30mmHg, mild MR, TR, PI Results Results: Laboratory Tests 05/15/17 0630: Anion Gap 12, Estimated GFR > 60, BUN/Creatinine Ratio 32.9 H, CBC w Diff NO MAN DIFF REQ, RBC 5.19, MCV 59.8 L, MCH 18.1 L, RDW 22.0 H, MPV 10.0, Gran % 67.4, Lymphocytes % 26.7, Monocytes % 5.0, Eosinophils % 0.1, Basophils % 0.8, Absolute Granulocytes 12.6 H, Absolute Lymphocytes 5.0 H, Absolute Monocytes 0.9 H, Absolute Eosinophils 0, Absolute Basophils 0.1, PUBS MCHC 30.2 L, Thyroid Peroxidase Ab 39 05/14/17 0620: Anion Gap 14, Estimated GFR > 60, BUN/Creatinine Ratio 32.0 H, Iron 23 L, TIBC 434, Ferritin 6.2 L, Vitamin B12 370, Folate 8.8, TSH 0.114 L, Free T4 0.93, CBC w Diff NO MAN DIFF REQ, RBC 5.00, MCV 60.0 L, MCH 18.0 L, RDW 21.9 H, MPV 10.0, Gran % 84.9 H, Lymphocytes % 6.3 L, Monocytes % 8.6, Eosinophils % 0.1, Basophils % 0.1, Absolute Granulocytes 21.9 H, Absolute Lymphocytes 1.6, Absolute Monocytes 2.2 H, Absolute Eosinophils 0, Absolute Basophils 0, PUBS MCHC 30.1 L 05/13/17 1305: PT 20.4 H, INR 1.96 H, APTT > 120 *H 05/13/17 1131: Lactic Acid Cancelled 05/13/17 0852: Lactic Acid 2.1, Troponin I < 0.01, CBC w Diff NO MAN DIFF REQ, RBC 5.24, MCV 59.6 L, MCH 18.1 L, RDW 22.4 H, MPV 9.4, Gran % 89.0 H, Lymphocytes % 10.0 L, Monocytes % 0.8 L, Eosinophils % 0.1, Basophils % 0.1, Absolute Granulocytes 12.8 H, Absolute Lymphocytes 1.4, Absolute Monocytes 0.1, Absolute Eosinophils 0, Absolute Basophils 0, PUBS MCHC 30.4 L 05/13/17 0813: Sodium Cancelled, Potassium Cancelled, Chloride Cancelled, Carbon Dioxide Cancelled, Anion Gap Cancelled, BUN Cancelled, Creatinine Cancelled, Glucose Cancelled, Calcium Cancelled, Phosphorus Cancelled, Magnesium Cancelled, Total Bilirubin Cancelled, AST Cancelled, ALT Cancelled, Albumin Cancelled 05/13/17 0600: Lactic Acid 3.9 H 05/13/17 0300: pH 7.40, pCO2 32 L, pO2 117 H, HCO3 19 L, ABG O2 Sat (Measured) 97.0, P-50 ( Temp Corrected) Y, Carboxyhemoglobin 0.3 L, O2 Concentration % 2 LPM, Temperature 99.2, O2 Delivery Method N/C, Phlebotomy Draw Site LEFT RADIAL 05/13/17 0257: Lactic Acid 2.9 H, Troponin I < 0.01 05/13/17 0040: Lactic Acid 2.6 H 05/12/17 2205: pH 7.35, pCO2 36, pO2 193 H, HCO3 20 L, ABG O2 Sat (Measured) 99.0, Carboxyhemoglobin 0.3 L, O2 Concentration % 35, Respiration Rate 20, O2 Delivery Method BIPAP, Vent Mode ST, Expiratory Pressure 6, Inspiratory Pressure 12, Phlebotomy Draw Site LEFT RADIAL 05/12/172140: Anion Gap 17 H, Estimated GFR > 60, BUN/Creatinine Ratio 17.0, Glucose 219 H, Lactic Acid 5.7 H, Calcium 8.6, Iron 30 L, TIBC 447, Ferritin 4.6 L, Total Bilirubin 0.1 L, Direct Bilirubin 0.1, AST 16, ALT 37, Alkaline Phosphatase 58, Troponin I < 0.01, Total Protein 7.3, Albumin 4.1, Amylase 88, Lipase 161, Total Beta HCG NEGATIVE, D-Dimer High Sensitivty < 200, CBC w Diff MAN DIFF ORDERED, RBC 5.32, MCV 60.2 L, MCH 18.3 L, RDW 22.5 H, MPV 9.6, Gran % 48.3, Lymphocytes % 38.2, Monocytes % 8.3, Eosinophils % 4.9, Basophils % 0.3, Absolute Granulocytes 10.3 H, Segmented Neutrophils 37 L, Band Neutrophils 2, Absolute Lymphocytes 8.1 H, Lymphocytes 43, Monocytes 11 H, Absolute Monocytes 1.8 H, Eosinophils 5, Absolute Eosinophils 1.1, Absolute Basophils 0.1, Metamyelocytes 2 H, Platelet Estimate ADEQUATE, Polychromasia 1+, Hypochromic- Microcytic 1+, Anisocytosis 3+, Microcytic Cells 3+, PUBS MCHC 30.4 L, Retic Count 3.19 H, Serum Alcohol < 10.0 05/12/172138: Lactic Acid Cancelled, Serum Alcohol Cancelled, Urine Color Cancelled, Urine Clarity Cancelled, Urine pH Cancelled, Ur Specific [place] Cancelled, Urine Protein Cancelled, Urine Ketones Cancelled, Urine Nitrite Cancelled, Urine Bilirubin Cancelled, Urine Urobilinogen Cancelled, Ur Leukocyte Esterase Cancelled, Ur Microscopic Cancelled, Urine Hemoglobin Cancelled, Urine Glucose Cancelled Microbiology 05/12 2233 NASOPHARYN: Influenza Virus A & B Rapid Smear - COMP Assessment/Plan Assessment: 37y female with a hx of migraines, GERD, anemia, and asthma, admitted to medicine on 05/13 secondary to difficulty breathing after dinner that evening whose examination was benign and whose labs suggest compensated respiratory acidosis, suggest worsening iron-deficiency/alpha-thalassemia, and indicate progressively elevated WBC (14.3 to 25.8). 1) Respiratory Distress: Like 2/2 asthma exacerbation from GERD Wean O2 and monitor saturation in preparation for d/c Schedule OP appt for stress test given current symptoms and recent hx of unstable angina F/u EGD report to narrow ddx 2) Anemia: Menses v alpha-thal v Fe-deficiency v GI bleed Recent gynecologic evaluation suggested abnormal menstruation as cause of anemia and suggested prednisone. Continue iron supplementation and schedule OP appt with hematology F/u EGD report to narrow ddx 3) GERD: Likely multifactorial-truncal obesity, dietary habits, possible structural anomaly? F/u EGD after 1pm 4) Tachycardia: Likely 2/2 GERD and asthma exacerbation Cards recommendation: d/c beta manjit, check TFTs, and if persistent tachy with HTN consider CCB 05/13 0452 98.7 117 20 116/60 98 Nasal 2.0L Cannula 05/13 0351 99.2 95 20 111/63 98 Nasal 2.0L Cannula 05/13 0231 98.0 101 20 112/68 100 Nasal 2.0L Cannula 05/13 0100 103 100 05/13 0048 103 20 115/63 100 BIPAP 05/12 2327 98 BIPAP 35% 05/12 2319 98 BIPAP 35% 05/12 2303 98.2 100 20 114/62 100 BIPAP 05/12 2247 98 BIPAP 35% 05/12 2212 98 05/12 2203 Ventilator 100% 05/12 2144 97.6 120 26 144/84 100 BIPAP Last 24 Hours I&Os 05/15 1600 05/15 0800 05/15 0000 Intake Total 800 Output Total Balance 800 Intake, Oral 800 Laboratory Tests 05/15/17 0630: Anion Gap 12, Estimated GFR > 60, BUN/Creatinine Ratio 32.9 H, CBC w Diff NO MAN DIFF REQ, RBC 5.19, MCV 59.8 L, MCH 18.1 L, RDW 22.0 H, MPV 10.0, Gran % 67.4, Lymphocytes % 26.7, Monocytes % 5.0, Eosinophils % 0.1, Basophils % 0.8, Absolute Granulocytes 12.6 H, Absolute Lymphocytes 5.0 H, Absolute Monocytes 0.9 H, Absolute Eosinophils 0, Absolute Basophils 0.1, PUBS MCHC 30.2 L, Thyroid Peroxidase Ab Pending Microbiology Date/Time Procedure - Status Source Growth 05/12 2233 Influenza Virus A & B Rapid Smear - COMP NASOPHARYN Orders Procedure Date/time Status Nothing by Mouth 05/15 B Active THYROPEROXIDASE ANTIBDIES 05/15 0630 Active CBC WITHOUT DIFFERENTIAL 05/15 0600 Complete BASIC ELECTROLYTES PLUS BUN&CR 05/15 0600 Active Lab Add-on Test 05/15 UNK Active RT: Reevaluation 05/14 1737 Active THYROID STIMULATING HORMONE 05/14 0620 Complete TOTAL IRON BINDING CAPACITY 05/14 0620 Complete FREE T4 05/14 0620 Complete FOLIC ACID 05/14 0620 Complete FERRITIN 05/14 0620 Complete SERUM IRON 05/14 0620 Complete VITAMIN B12 05/14 0620 Complete CBC WITHOUT DIFFERENTIAL 05/14 0600 Complete BASIC ELECTROLYTES PLUS BUN&CR 05/14 0600 Complete AEROSOL CHG 05/14 UNK Complete OXYGEN 05/14 UNK Complete OXYGEN DAILY CHARGE 05/14 UNK Complete RT RE-EVALUATION 05/14 UNK Complete Lab Add-on Test 05/14 UNK Active Hemoccult 05/14 UNK Active Regular Diet 05/13 D Complete Nothing by Mouth 05/13 B Complete RT: Evaluation 05/13 2353 Active Vital Signs 05/13 1620 Complete Teach/Educate 05/13 1620 Active Pain Treatment and Response 05/13 1620 Active Nutritional Intake, Monitor 05/13 1620 Active Isolation 05/13 1620 Active Intake & Output 05/13 1620 Complete Patient Care Conference 05/13 1620 Active Activity/Ambulation 05/13 1620 Active OXYGEN SETUP (GEN) 05/13 1600 Complete PARTIAL THROMBOPLASTIN TIME 05/13 1130 Complete PROTHROMBIN TIME 05/13 1130 Complete Patient Data 05/13 1103 Active TROPONIN LEVEL 05/13 0900 Complete LACTIC ACID 05/13 0900 Complete EKG 05/13 0900 Active CBC WITHOUT DIFFERENTIAL 05/13 0813 Complete LACTIC ACID 05/13 0600 Complete TRC EVALUATION (GEN) 05/13 0512 Complete TROPONIN LEVEL 05/13 0300 Complete LACTIC ACID 05/13 0300 Complete EKG 05/13 0300 Active ARTERIAL BLOOD GAS (GEN) 05/13 0200 Complete OXYGEN SETUP (GEN) 05/13 0103 Complete TRC EVALUATION (GEN) 05/13 0052 Complete Pathway - chart 05/13 0052 Active House Staff 05/13 0052 Active Code Status 05/13 0052 Active LACTIC ACID 05/13 0039 Complete OXYGEN SETUP CHG 05/13 UNK Complete AEROSOL CHG 05/13 UNK Complete OXYGEN 05/13 UNK Complete OXYGEN TRANSPORT 05/13 UNK Complete CONTIN. POS. AIRWAY PRESS. CHG 05/13 UNK Complete THERAPIST ORDERS 05/13 UNK Complete Transfer patient to 05/13 UNK Active Change service to 05/13 UNK Active Lab Add-on Test 05/13 UNK Active VTE Mechanical Prophylaxis 05/13 UNK Active Vital Signs 05/13 UNK Active Telemetry/Battery Service Technician 05/13 UNK Active Intake & Output 05/13 UNK Complete Hemoccult 05/13 UNK Active Admit to inpatient 05/12 2311 Active Intake & Output 05/12 2205 Active RAPID VIRAL INFLUENZA A 05/12 2154 Complete TOTAL IRON BINDING CAPACITY 05/12 2140 Complete RETICULOCYTE COUNT 05/12 2140 Complete FERRITIN 05/12 2140 Complete SERUM IRON 05/12 2140 Complete ETHANOL 05/12 2140 Complete D-DIMER 05/12 2139 Complete URINE DRUGS OF ABUSE 05/12 2138 Active ARTERIAL BLOOD GAS (GEN) 05/12 2137 Complete TROPONIN LEVEL 05/12 2137 Complete LIPASE 05/12 2137 Complete LACTIC ACID 05/12 2137 Complete HEPATIC FUNCTION PANEL 05/12 2137 Complete HUMAN BETA HCG SCREEN 05/12 2137 Complete CBC WITHOUT DIFFERENTIAL 05/12 2137 Complete BASIC METABOLIC PANEL 05/12 2137 Complete AMYLASE 05/12 2137 Complete EKG 05/12 2137 Active BIPAP 05/12 UNK Complete Physical Examination: General: AOx3, cooperative and polite. Heart: Tachycardic, but regular rythym and no murmurs/rubs/gallops Lungs: Abdomen:
--- NOTE | 2017-05-15 11:23 | Discharge Summary ---
Visit Information Visit Dates Admission Date: 05/12/17 Discharge Date: 05/15/17 Hospital Course Course Attending Physician: Marie Richmond MD Primary Care Physician: Angely Harrington MD Hospital Course: Ms. Soriano is a 37-year-old lady with past medical history significant for asthma, migraine, GERD, alpha thalassemia chronic anemia and recently admitted to [facility] , October 2016, for unstable angina who was brought in by ambulance for an episode of severe respiratory distress. According to the patient, about 3 minutes after eating dinner(white rice, codfish and salmon), she started feeling nauseous, lightheaded and short of breath. She went to use her albuterol inhaler without any relief. Tried to take hot shower bath(usually helps her symptoms) but felt more short of breath and told her daughter to call 911 as she felt she was about to pass out. The next thing she remembers is opening her eyes in the hospital. She Stated she has had some upper respiratory infection past 3 weeks, completed a course of Z-Cristobal and continues to be on prednisone 40 mg taper for that. She continues to have severe cough. She has been using the albuterol inhaler more frequently for the past 3 weeks(almost 7-8 times per day in 2 times per night). Also endorsed central chest pain with coughing, 6-7/10 in intensity, that radiates to her left shoulder and back, relieved with Tylenol and ibuprofen. She also reported palpitations(heart rate of 130) and diaphoresis just with walking couple of steps, that has been worsening for the past 2-3 days. Reports sick contact at home, 4-year-old baby . Sick with flulike symptoms. She denieed any fever, night sweats, recent change in perfumes/detergents/ infiltrates/medications or use of herbal supplements. Also denieed the use of oxygen/CPAP/BiPAP at home, any previous similar episodes, hospitalization for asthma exacerbation, or intubation in the past. Hospital course: Patient was brought in by the ambulance to [facility], and en route to the hospital she received bag and mask ventilation, she resumed spontaneous respiration but remained lethargic. Patient was stabilized after giving subcutaneous epinephrine, steroids, BiPAP. DVT and pulmonary embolism was ruled out. Patient was admitted to telemetry for further monitoring. Given the patient's symptoms and history of asthma this was most likely acute exacerbation of asthma. Patient responded well to steroids and nebulization treatment. Patient also had iron deficiency anemia with a hemoglobin of 9.4. Given the anemia in the setting of GERD patient underwent upper endoscopy which was later found to be normal. Patient was sent home with tapering dose of steroids, Protonix and advised to follow-up with the counter clerk Dr. Bee, primary care physician. The patient also had a low TSH of 0.11 and anti TPO ab is normal. Advised to follow up with the national sales consultant Imaging Chest x-ray May 12 IMPRESSION: No acute cardiopulmonary finding. Echocardiogram May 13 Normal left ventricular size, wall thickness and systolic function with no obvious regional wall motion abnormalities. Abnormal relaxation filling pattern of the left ventricle for age (stage 1 diastolic dysfunction). The ejection fraction is visually estimated at 60 %. The right ventricle is normal in size and function. The right atrium is normal in size. The left atrium is normal in size. The interatrial septum is intact. There is trace mitral regurgitation. There is trace tricuspid regurgitation. Pulmonary artery systolic pressure is 30 mmHg. VQ scan May 13 IMPRESSION: Normal radionuclide lung ventilation perfusion scan. Ultrasound Doppler May 13 IMPRESSION: Normal triplex scan without evidence of deep venous thrombosis involving the lower extremities. Sinus x-ray Clear paranasal sinuses. Complications: none Allergies: Coded Allergies: Iodinated Contrast- Oral and IV Dye (IODINATED CONTRAST MEDIA - ORAL AND) ( Severe, ANAPHYLAXIS 04/24/17) iodine (Severe, ANAPHYLAXIS 04/24/17) shellfish derived (Severe, ANAPHYLAXIS 04/24/17) Significant Procedures: upper EGD Disposition Summary Disposition Principal Diagnosis: Acute exacerbation of asthma Additional Diagnosis: Anemia Discharge Disposition: home or self care Discharge Instructions General Discharge Information Code Status: Full Code Patient's Diet: Regular diet Patient's Activity: Activity as tolerated Follow-Up Instructions/Appts: Please follow up with your primary care provider Please follow with the counter clerk Please follow up with the national sales consultant. Medications at Discharge Discharge Medications: Stop taking the following medications: Famotidine (Famotidine) 40 MG TABLET ORAL DAILY Qty = 90 Metoprolol Tartrate (Metoprolol Tartrate) 25 MG TABLET ORAL DAILY Qty = 60 Continue taking these medications: Albuterol Sulfate (Proair Hfa) 90 MCG HFA.AER.AD 2 Puff Inhale through mouth as needed for ASTHMA Comments: NOT GIVEN IN HOSPITAL Ibuprofen (Ibuprofen) 800 MG TABLET 1 Tablet ORAL as needed for PAIN/INFLAMMATION Comments: Last Taken: 05/15/17 Time: 6:30 AM Montelukast Sodium (Montelukast Sodium) 10 MG TABLET 1 Tablet ORAL DAILY Qty = 90 Comments: NOT GIVEN IN HOSPITAL Budesonide/Formoterol Fumarate (Symbicort 160-4.5 Mcg Inhaler) 160 MCG-4.5 MCG/ ACTUATION HFA.AER.AD 2 Puff Inhale through mouth TWICE DAILY Comments: NOT GIVEN IN HOSPITAL Topiramate (Topiramate) 25 MG TABLET 1 Tablet ORAL TWICE DAILY Qty = 60 Comments: NOT GIVEN IN HOSPITAL Albuterol Sulfate (Albuterol Sulfate) 2.5 MG/3 ML (0.083 %) VIAL.NEB 1 Vial Inhale Solution EVERY 4 HOURS NEEDED as needed for ASTHMA Comments: Last Taken: 05/15/17 Time: 10:15 AM Atorvastatin Calcium (Atorvastatin Calcium) 20 MG TABLET 1 Tablet ORAL DAILY Qty = 30 Comments: Last Taken: 05/14/17 Time: 5:30 PM Start taking the following new medications: Pantoprazole Sodium (Pantoprazole Sodium) 40 MG TABLET.DR 1 Tablet ORAL DAILY Qty = 30 No Refills Instructions: . Comments: Last Taken: 05/15/17 Time: 6:30 AM PRILOSEC GIVEN Guaifenesin (Guaifenesin ER) 600 MG TAB.ER.12H 600 Milligram ORAL EVERY 12 HOURS Qty = 10 No Refills Instructions: . Comments: Last Taken: 05/15/17 Time: 1:15 PM Ferrous Sulfate (Ferrous Sulfate) 324 MG (65 MG IRON) TABLET.DR 1 Tablet ORAL TWICE DAILY Qty = 60 Refills = 1 Instructions: . Comments: NOT GIVEN IN HOSPITAL The following medications have been changed: Old: Epinephrine (Epinephrine) 0.3 MG/0.3 ML AUTO.INJCT 0.3 Milligram INTRAMUSC As Directed as needed for ALLERGIC REACTION Qty = 2 New: Epinephrine (Epinephrine) 0.3 MG/0.3 ML AUTO.INJCT 0.3 Milligram INTRAMUSC As Directed as needed for ALLERGIC REACTION Qty = 2 Instructions: . Comments: NOT GIVEN IN HOSPITAL Old: Prednisone (Prednisone) 10 MG TABLET 1 Tablet ORAL As Directed Qty = 40 New: Prednisone (Prednisone) 10 MG TABLET 1 Tablet ORAL As Directed Qty = 27 Instructions: TAKE 4 TAB DAILY X 2 DAYS TAKE 3 TAB DAILY X 3 DAYS TAKE 2 TAB DAILY X 3 DAYS TAKE 1 TAB DAILY X 3 DAYS, THEN STOP. Comments: TAKE 4 TAB DAILY X 2 DAYS TAKE 3 TAB DAILY X 3 DAYS TAKE 2 TAB DAILY X 3 DAYS TAKE 1 TAB DAILY X 3 DAYS, THEN STOP. Last Taken: 05/15/17 Time: 1:15 PM Copies To: Juany PEREZ,Angely De Los Santos Attending MD Review Statement Documenting Attending: Marie Richmond MD Other Findings: Discharged in stable condition.
--- NOTE | 2017-05-15 12:22 | Proc Note Endoscopy ---
Endoscopy Procedure Medical History: unchanged (see meditech consult) Mental Status: alert/oriented Heart/Lung Eval Prior to Sedation: within normal limits Candidate for Sedation? Yes Procedure Date: 05/15/17 Procedure Type: EGD w/biopsy Deputy Building Guard: Benito Bee MD ASA Classification: III Indications: Dysphagia, reflux. Instrument: diagnostic gastroscope Meds Received: MAC Patient's Tolerance: good Complications: none Extent Reached: second part of duodenum Procedure: After getting written informed consent the patient was placed in the left lateral decubitus position with pulse oximetry, cardiac monitoring, and supplemental oxygen given. A bite block was inserted and IV sedation was given until the desired effect was achieved. A high definition upper Olympus endoscope was then inserted into the mouth and advanced to the second portion of the duodenum with little difficulty. Retroflexed views and photodocumentation was obtained. Findings: Esophagus: The esophageal mucosa was grossly normal in appearance and there was a normal-appearing Z line at 38 cm from the incisors. There were no esophageal strictures, ulcers, erosions, masses, or significant furrowing appreciated. Random biopsies were obtained from the distal and proximal esophageal mucosa with cold biopsy forceps and were sent to pathology for further evaluation. Stomach: The gastric mucosa was grossly normal in appearance. There were no ulcers, erosions, or masses appreciated. Distention and peristalsis of the stomach appeared normal. Retroflexed views were normal and did not reveal a significant hiatal hernia. Duodenum: The duodenal bulb, sweep, and folds were grossly normal in appearance. Impression: 1. Grossly normal upper endoscopy status post random biopsies of the esophagus. Recommendations: 1. Would start her on Protonix 40 mg once a day a half an hour before her first meal a day and she can increase to twice a day dosing as needed for breakthrough symptoms. 2. She should follow an antireflux regimen. 3. She should be encouraged to make efforts to lose weight by low-fat diet and exercise. 4. She should avoid or minimize use of NSAIDs. 5. He should follow up the pathology results me as an outpatient. 6. She should follow-up in the office as needed for new, worsening or persistent GI symptoms.
[2017-05-15] MEDS ORDERED: PANTOPRAZOLE SO40 M1 PO (13:47)
[2017-05-15 14:44] VITALS: BP 120/80
[2017-05-15] MEDS ORDERED: EPINEPHRIN0.3 MG/0.1 IM (15:27)
[2017-05-16] MEDS ORDERED: PANTOPRAZOLE SO40 M1 PO (10:00)
[2017-05-16] MEDS ORDERED: GUAIFENESIN ER600 MG PO (10:00)
[2017-05-16] MEDS ORDERED: FERROUS SULFAT324 MG PO (10:00)
== END 2017-05-15 15:45 | DRG 141 ==
LOC: ERH 21:28 → 1NO 23:11 → ERHI 23:11 → EDBEDREQ 05-13 10:57 → EDBEDREQTM 05-13 10:57 → ERHI 05-13 11:08 → ENRESERV 05-13 15:07 → ENTRNSPT 05-13 16:40 → EDTRNSPTSTS 05-13 16:42 → 1NO 05-13 16:57 → CMPTRNSPT 05-13 17:10 → ENPENDDIS 05-15 14:14 → 1NO 05-15 15:45
PROVIDERS: Internal Medicine; Pediatrics; Student in an Organized Health Care Education/Training Program
PROC: 0DB58ZX Excision of Esophagus, Via Natural or Artificial Opening Endoscopic, Diagnostic (ICD-10-PCS; principal; 2017-05-15)
DX: J45.901 Unspecified asthma with (acute) exacerbation (principal); J96.01 Acute respiratory failure with hypoxia; E87.2 Acidosis; K21.9 Gastro-esophageal reflux disease without esophagitis; D72.829 Elevated white blood cell count, unspecified; D56.9 Thalassemia, unspecified; G43.909 Migraine, unspecified, not intractable, without status migrainosus
CPT/HCPCS: 1NSP; ERO; 36415; 70220; 71045; 78582; 80307; 82436; 86376; 87804; 87804-59; 93005; 93010; 93306; 93970; 94644; 94645; 96374; 96375; 99291; A9540; A9558; G0480; J1200; J1644; J1650; J2310; J2920; J2930

== ENCOUNTER 2017-06-09 13:25 | Inpatient (IN) | payer OTHER ==
[~2017-06-09] VITALS: Ht 149.9 cm; Wt 73.9 kg
[~2017-06-09 13:25] MED LIST changes: +EPIPEN 2-P0.3 MG/0.3 IM; +FERROUS SULFAT324 MG PO; +GUAIFENESIN ER600 MG PO; +OMEPRAZOLE20 M2 PO
--- NOTE | 2017-06-09 13:33 | ED DYSPNEA/ASTHMA COMPLAINT ---
See Addendum History of Present Illness General Chief Complaint: Dyspnea (COPD, CHF, Other) Stated Complaint: SOB Source: patient, old records, EMS Exam Limitations: no limitations Vital Signs & Intake/Output Vital Signs & Intake/Output Vital Signs Date Time Temp Pulse Resp B/P B/P Pulse O2 O2 Flow FiO2 Mean Ox Delivery Rate 06/09 1345 99 Nasal 2.0L Cannula 06/09 1342 96 Nasal 4.0L Cannula 06/09 1327 98.1 143 16 144/76 99 Nasal 3.0L Cannula Allergies Coded Allergies: Iodinated Contrast- Oral and IV Dye (IODINATED CONTRAST MEDIA - ORAL AND) ( Severe, ANAPHYLAXIS 04/24/17) iodine (Severe, ANAPHYLAXIS 04/24/17) shellfish derived (Severe, ANAPHYLAXIS 04/24/17) Reconcile Medications Albuterol Sulfate (Proair Hfa) 90 MCG HFA.AER.AD 2 PUF INH PRN ASTHMA ( Reported) Albuterol Sulfate 2.5 MG/3 ML (0.083 %) VIAL.NEB 1 Vial INH/NEDA Q4P PRN ASTHMA (Reported) Atorvastatin Calcium 20 MG TABLET 1 TAB PO DAILY CHOLESTEROL (Reported) Budesonide/Formoterol Fumarate (Symbicort 160-4.5 Mcg Inhaler) 160 MCG-4.5 MCG/ ACTUATION HFA.AER.AD 2 PUF INH BID BREATHING PROBLEMS (Reported) Diltiazem HCl (Diltiazem 24HR ER) (Unknown Strength) CAP.ER.24H (Unknown Dose) PO DAILY HEART/BP (Reported) Epinephrine 0.3 MG/0.3 ML AUTO.INJCT 0.3 MG IM AD PRN ALLERGIC REACTION . Ferrous Sulfate 324 MG (65 MG IRON) TABLET.DR 1 TAB PO BID anemia . Ibuprofen 800 MG TABLET 1 TAB PO PRN PAIN/INFLAMMATION (Reported) Metformin HCl (Metformin HCl ER) 500 MG TAB.ER.24H 1 TAB PO DAILY DM ( Reported) Metoprolol Tartrate (Unknown Strength) TABLET (Unknown Dose) UNKNOWN ( Reported) Montelukast Sodium 10 MG TABLET 1 TAB PO DAILY ALLERGIES (Reported) Pantoprazole Sodium 40 MG TABLET.DR 1 TAB PO DAILY gerd . Tiotropium [place] (Spiriva Respimat) (Unknown Strength) MIST.INHAL 2 PUFF INH DAILY ASTHMA (Reported) Topiramate 25 MG TABLET 1 TAB PO BID MIGRAINES (Reported) Triage Nurses Notes Reviewed? yes HPI: Patient presents with an asthma exacerbation. She was discharged from the hospital at the end of April after admission for asthma exacerbation. Patient states that she has been closed intubation in the past but got better with BiPAP. Patient was doing better until this morning when she began began to feel short of breath and wheezing. EMS gave her a DuoNeb. Patient is been off steroids since the end of April. There are no fevers or chills. Positive chest tightness. Positive nonproductive cough. Positive anorexia but no nausea or vomiting. No headache. Past History Travel History Traveled to [place] past 21 day No Medical History Any Pertinent Medical History? see below for history Neurological: MIGRAINES EENT: NONE Cardiovascular: NONE, CARDIAC CATH 2017 Respiratory: asthma Gastrointestinal: GERD Hepatic: NONE Renal: NONE Musculoskeletal: NONE Psychiatric: NONE Endocrine: NONE Blood Disorders: anemia Cancer(s): NONE BUSINESS TRAVEL CONSULTANT/Reproductive: NONE History of MRSA: No History of VRE: No History of CDIFF: No Influenza Vaccine: 12/21/16 Surgical History Surgical History: appendectomy, cholecystectomy, ((3 C-Sections)), tubal ligation Psychosocial History Who do you live with Patient and family Services at Home NONE What is your primary language Divehi Tobacco Use: Never used ETOH Use: occasional use Illicit Drug Use: denies illicit drug use Family History Family History, If Any: Relation not specified for: *No pertinent family history Hx Contributory? No Review of Systems Review of Systems Constitutional: Reports: no symptoms. EENTM: Reports: no symptoms. Respiratory: Reports: see HPI, cough, short of breath, wheezing. Cardiovascular: Reports: see HPI, chest pain (TIGHTNESS). GI: Reports: see HPI (ANOREXIA). Genitourinary: Reports: no symptoms. Musculoskeletal: Reports: no symptoms. Skin: Reports: no symptoms. Neurological/Psychological: Reports: no symptoms. Hematologic/Endocrine: Reports: no symptoms. Immunologic/Allergic: Reports: no symptoms. All Other Systems: Reviewed and Negative Physical Exam Physical Exam General Appearance: well developed/nourished, alert, awake, anxious, moderate distress Head: atraumatic, normal appearance Eyes: Bilateral: PERRL, EOMI. Ears, Nose, Throat: normal pharynx, normal ENT inspection, hearing grossly normal Neck: normal inspection, supple, full range of motion Respiratory: decreased breath sounds, wheezing, respiratory distress Cardiovascular: regular rate/rhythm, normal peripheral pulses Gastrointestinal: normal bowel sounds, soft, non-tender, no organomegaly Extremities: normal inspection, normal capillary refill, normal range of motion, no edema Neurologic/Psych: no motor/sensory deficits, awake, alert, oriented x 3, normal gait, normal mood/affect Lymphatic: no anterior cervical jazmyne Core Measures ACS in differential dx? No CVA/TIA Diagnosis No Sepsis Present: No Sepsis Focused Exam Completed? No Progress Differential Diagnosis: asthma, bronchitis, COPD, pulmonary embolism, pneumonia, pneumothorax Plan of Care: Orders Procedure Date/time Status Regular Diet 06/09 D Active Patient Data 06/09 1530 Active ED Holding Orders 06/09 1524 Active Admit to inpatient 06/09 1524 Active Vital Signs 06/09 1524 Active Code Status 06/09 1524 Active HUMAN BETA HCG SCREEN 06/09 1333 Complete COMPREHENSIVE METABOLIC PANEL 06/09 1333 Complete CBC WITHOUT DIFFERENTIAL 06/09 1333 Complete Current Medications Sig/Radha Start time Last Medication Dose Stop Time Status Admin Magnesium Sulfate 1 GM ONCE ONE 06/09 1345 AC 06/09 (Mag Sulfate in D5) 06/09 1744 1346 Dextrose/Water 100 ML (D5W) Laboratory Tests 06/09/17 1351: Anion Gap 12, Estimated GFR > 60, BUN/Creatinine Ratio 14.4, Glucose 151 H, Calcium 9.0, Total Bilirubin 0.4, AST 13 L, ALT 46, Alkaline Phosphatase 59, Total Protein 7.0, Albumin 3.9, Globulin 3.1, Albumin/Globulin Ratio 1.3, Total Beta HCG NEGATIVE, CBC w Diff MAN DIFF ORDERED, RBC 5.40, MCV 60.7 L, MCH 18.3 L, MCHC 30.2 L, RDW 23.1 H, MPV 9.3, Gran % 54.3, Lymphocytes % 33.0, Monocytes % 7.7, Eosinophils % 4.8, Basophils % 0.2, Absolute Granulocytes 5.8, Absolute Lymphocytes 3.5 H, Absolute Monocytes 0.8 H, Absolute Eosinophils 0.5 , Absolute Basophils 0, Platelet Estimate VERIFIED BY SMEAR, Polychromasia 1+, Hypochromic-Microcytic 2+, Poikilocytosis 1+, Anisocytosis 1+, Microcytic Cells 2+, Ovalocytes 1+ Diagnostic Imaging: Viewed by Me: Radiology Read. Discussed w/RAD: Radiology Read. Initial ED EKG: none Comments: PT IS FEELING MUCH BETTER WHILE ON THE CONTINOUS NEBS AND MAGNESIUM. WILL CONTINUE TO CLOSELY MONITOR. Patient once again is feeling short of breath. Slight expiratory wheeze but still good air entry. Patient has required BiPAP in the past and has been closed intubation. At this point the patient will be admitted for asthma exacerbation. Departure Departure Disposition: STILL A PATIENT Condition: Stable Clinical Impression Primary Impression: Asthma exacerbation Referrals: Juany PEREZ,Angely De Los Santos (PCP/Family) Departure Forms: Customer Survey General Discharge Information Admission Note Spoke With: Sabi Hansen MD Documentation of Exam: Documentation of any treatments & extenuating circumstances including Concerns Regarding Discharge (functional status, medication knowledge or non-compliance, living conditions, etc.) that warrant an admission rather than observation: [ NEBS, IV STEROIDS, PULM CONSULT, RESP TREATMENT, HIGH RISK IF DISCHARGED EARLY] Critical Care Note Critical Care Note Critical Care Time: mins: (120 MIN)
[2017-06-09 14:04] LABS: ABSOLUTE BASOPHIL COUNT 0 /CUMM (0.0-0.2); ABSOLUTE EOSINOPHIL COUNT 0.5 /CUMM (0.0-0.7); ABSOLUTE GRANULOCYTE CT 5.8 /CUMM (1.4-6.5); ABSOLUTE LYMPH COUNT 3.5 /CUMM (1.2-3.4); ABSOLUTE MONOCYTE COUNT 0.8 /CUMM (0.10-0.60); BASOPHIL % 0.2 % (0.0-2.0); EOSINOPHIL % 4.8 % (0-5); GRANULOCYTE % 54.3 % (42.2-75.2); HEMATOCRIT 32.8 % (37-47); MEAN CORPUSCULAR HGB 18.3 PG (27.0-31.0); MEAN CORPUSCULAR HGB CONC 30.2 G/DL (33.0-37.0); MEAN CORPUSCULAR VOLUME 60.7 FL (81.0-99.0); MEAN PLATELET VOLUME 9.3 FL (7.4-10.4); PLATELET COUNT 256 /CUMM (130-400); RBC DISTRIBUTION WIDTH 23.1 % (11.5-14.5); WHITE BLOOD CELL COUNT 10.6 /CUMM (4.8-10.8)
[2017-06-09] MEDS ORDERED: SPIRIVA RESPIMAT4 GM INH (14:31)
[2017-06-09] MEDS ORDERED: METOPROLOL TART25 M1 (14:33)
[2017-06-09] MEDS ORDERED: DILTIAZEM 24HR180 MG PO (14:34)
[2017-06-09] MEDS ORDERED: METFORMIN HCL500 M4 PO (14:34)
[2017-06-09] MEDS ORDERED: DILT-XR120 M1 PO (16:06)
--- NOTE | 2017-06-09 16:55 | History & Physical ---
Smita PEREZ,[facility] 06/09/17 1626: General Information and HPI MD Statement: I have seen and personally examined PRIYA HERNDON and documented this H&P. The patient is a 37 year old F who presented with a patient stated chief complaint of [SOB/asthma]. Source of Information: patient, old records Exam Limitations: no limitations History of Present Illness: 37-year-old female with PMH of asthma, migraine, GERD, alpha thalassemia anemia, was recently admitted to [facility] for asthma exacerbation, who presented today with shortness breath, wheezing and cough. The patient was discharged from [facility] on 11/12/2017 after she was admitted to ICU for asthma exacerbation, she was managed with BiPAP, she never required intubation in the past. Soon after discharge she was admitted to [facility] for another asthma exacerbation. For the past 3 weeks, her asthma was under control of steroid, her community organization director added Symbicort to her home regimen. The patient reported that she has cold-induced asthma, since the morning she has been having dyspnea and wheezing. The patient reports baseline cough productive of white sputum. She also had chronic tachycardia with a mild left-sided chest pain that's been going for a while, she was told that this is most likely related to her asthma. She denies fever, chills, or palpitation. She denies recent sick contact, smoking, or recent travel. Allergies/Medications Allergies: Coded Allergies: Iodinated Contrast- Oral and IV Dye (IODINATED CONTRAST MEDIA - ORAL AND) ( Severe, ANAPHYLAXIS 04/24/17) iodine (Severe, ANAPHYLAXIS 04/24/17) shellfish derived (Severe, ANAPHYLAXIS 04/24/17) Home Med list Albuterol Sulfate (Proair Hfa) 90 MCG HFA.AER.AD 2 PUF INH PRN ASTHMA ( Reported) Albuterol Sulfate 2.5 MG/3 ML (0.083 %) VIAL.NEB 1 Vial INH/NEDA Q4P PRN ASTHMA (Reported) Atorvastatin Calcium 20 MG TABLET 1 TAB PO DAILY CHOLESTEROL (Reported) Budesonide/Formoterol Fumarate (Symbicort 160-4.5 Mcg Inhaler) 160 MCG-4.5 MCG/ ACTUATION HFA.AER.AD 2 PUF INH BID BREATHING PROBLEMS (Reported) Diltiazem HCl (Dilt-XR) 120 MG CAP.ER.DEG 120 MG PO DAILY HEART RATE ( Reported) Epinephrine 0.3 MG/0.3 ML AUTO.INJCT 0.3 MG IM AD PRN ALLERGIC REACTION . Ferrous Sulfate 324 MG (65 MG IRON) TABLET.DR 1 TAB PO BID anemia . Ibuprofen 800 MG TABLET 1 TAB PO PRN PAIN/INFLAMMATION (Reported) Metformin HCl (Metformin HCl ER) 500 MG TAB.ER.24H 1 TAB PO DAILY DM ( Reported) Montelukast Sodium 10 MG TABLET 1 TAB PO DAILY ALLERGIES (Reported) Pantoprazole Sodium 40 MG TABLET.DR 1 TAB PO DAILY gerd . Tiotropium [place] (Spiriva Respimat) (Unknown Strength) MIST.INHAL 2 PUFF INH DAILY ASTHMA (Reported) Topiramate 25 MG TABLET 1 TAB PO BID MIGRAINES (Reported) Past History Travel History Traveled to [place] past 21 day No Medical History Neurological: MIGRAINES EENT: NONE Cardiovascular: TACHYCARDIA CARDIAC CATH 2017 Respiratory: asthma Gastrointestinal: GERD Hepatic: NONE Renal: NONE Musculoskeletal: NONE Psychiatric: NONE Endocrine: NONE Blood Disorders: anemia Cancer(s): NONE BRIDGE CRANE OPERATOR/Reproductive: NONE History of MRSA: No History of VRE: No History of CDIFF: No Influenza Vaccine: 12/21/16 Surgical History Surgical History: appendectomy, cholecystectomy, ((3 C-Sections)), tubal ligation Past Family/Social History Family History Relations & Conditions if any Relation not specified for: *No pertinent family history Psychosocial History Services at Home: NONE ETOH Use: occasional use Illicit Drug Use: denies illicit drug use Functional Ability ADLs Independent: dressing, eating, toileting, bathing. Ambulation: independent IADLs Independent: shopping, housework, finances, food prep, telephone, transportation , medication admin. Review of Systems Review of Systems Constitutional: Reports: see HPI. Exam & Diagnostic Data Last 24 Hrs of Vital Signs/I&O Vital Signs Date Time Temp Pulse Resp B/P B/P Pulse O2 O2 Flow FiO2 Mean Ox Delivery Rate 06/09 1647 98.2 103 20 127/65 99 Nasal 2.0L Cannula 06/09 1448 98.5 113 18 132/78 99 Nasal 2.0L Cannula 06/09 1345 99 Nasal 2.0L Cannula 06/09 1342 96 Nasal 4.0L Cannula 06/09 1327 98.1 143 16 144/76 99 Nasal 3.0L Cannula Intake & Output 06/09 1600 02/18 0800 06/09 0000 Intake Total Output Total Balance Patient 81.647 kg Weight Weight Estimated Measurement Method Physical Exam General Appearance Alert, Oriented X3, Cooperative, No Acute Distress Skin No Rashes HEENT Atraumatic, PERRLA, EOMI, Mucous Membr. moist/pink Neck No JVD Cardiovascular Regular Rate, Normal S1, Normal S2, No Murmurs Lungs Clear to Auscultation, Normal Air Movement, no wheezing but status post treatment Abdomen Soft, No Tenderness Neurological Normal Speech Last 24 Hrs of Labs/Yoshi: Laboratory Tests 06/09/17 1351: Anion Gap 12, Estimated GFR > 60, BUN/Creatinine Ratio 14.4, Glucose 151 H, Calcium 9.0, Total Bilirubin 0.4, AST 13 L, ALT 46, Alkaline Phosphatase 59, Total Protein 7.0, Albumin 3.9, Globulin 3.1, Albumin/Globulin Ratio 1.3, Total Beta HCG NEGATIVE, CBC w Diff MAN DIFF ORDERED, RBC 5.40, MCV 60.7 L, MCH 18.3 L, MCHC 30.2 L, RDW 23.1 H, MPV 9.3, Gran % 54.3, Lymphocytes % 33.0, Monocytes % 7.7, Eosinophils % 4.8, Basophils % 0.2, Absolute Granulocytes 5.8, Absolute Lymphocytes 3.5 H, Absolute Monocytes 0.8 H, Absolute Eosinophils 0.5 , Absolute Basophils 0, Platelet Estimate VERIFIED BY SMEAR, Polychromasia 1+, Hypochromic-Microcytic 2+, Poikilocytosis 1+, Anisocytosis 1+, Microcytic Cells 2+, Ovalocytes 1+ Microbiology 06/09 1644 LOWER RESP: Respiratory Culture - ORD 06/09 1644 LOWER RESP: Gram Stain - ORD 06/09 1633 NASOPHARYN: Influenza Virus A & B Rapid Smear - RECD Assessment/Plan Assessment: This 37-year-old female with history of multiple hospital admissions because of asthma exacerbation. Who presented with shortness breath and wheezing that was not improving with home inhalers. Problem list: * Asthma exacerbation * GERD * Tachycardia * Alpha thalassemia * Migraine Plan * Admit to general medicine floor * Peak flow every shift * IV Solu-Medrol 40 mg every 8 hours * Albuterol neoplasm [id number] * Continue montelukast * TRC * Sputum culture/flu screening * Oxygen as needed to keep saturation above 92% * Continue home medication including * PPI for GERD * Statin for hyperlipidemia * Diltiazem for tachycardia * Iron for anemia * Topiramate for migraine prophylaxis -Heart healthy diet -DVT PPX with Lovenox -Full code As Ranked By This Provider Problem List: 1. Asthma 2. GERD Core Measures/Misc (01/06) Acute Coronary Syndrome ACS Diagnosis: No Congestive Heart Failure Congestive Heart Failure Diagnosis No Cerebrovascular Accident CVA/TIA Diagnosis: No VTE (View Protocol) VTE Risk Factors Acute Medical Illness No Mechanical VTE Prophylaxis d/t N/A MechProphylax Ordered No VTE Pharm Prophylaxis d/t NA PharmProphylax ordered Sepsis (View protocol) Sepsis Present: No Sabi Hansen MD 06/09/172043: Attending MD Review Statement Attending Statement Attending MD Statement: examined this patient, discuss w/resident/PA/TRAFFIC ENGINEERING DIRECTOR, agreed w/resident/PA/TRAFFIC ENGINEERING DIRECTOR, reviewed EMR data (avail) Attending Assessment/Plan: 37F PMH asthma, migraine, GERD, alpha thalassemia anemia presenting with status asthmaticus. Her and her family have just gotten over the flu, and she has had worsening SOB over the past 2 days, unable to catch her breath today with no help from rescue inhaler, required continuous nebulizer treatment in ED with persistent wheezing and hypoxia 90% on room air in ED. Improved by the time I saw her, still mild wheezing, cannot take deep breath due to discomfort, saturating well on 2L, CXR negative. 1. Status asthamticus Plan - Admit to general medicine - Solumedrol and standing nebulizers - Daily peak flow - Continue home medications - DVT PPx
[2017-06-09 17:27] VITALS: BP 124/70
--- NOTE | 2017-06-09 20:47 | Admission Certification ---
Admission Certification Certification Statement - As attending physician, I certify that at the time of - admission, based on clinical presentation, severity of - symptoms, need for further diagnostic testing and - therapeutic interventions, and risk of adverse outcomes - without in-hospital treatment, in my clinical assessment, - this patient requires an acute hospital stay for a minimum - of two nights or longer. I have also considered psychsocial - factors such as support system, advanced age, financial - issues, cognitive issues, and failed out-patient treatments, - past re-admission history, safety of patient, and lack of - compliance as applicable. Specific rationale supporting this admission is: status asthmaticus
[2017-06-09 22:04] VITALS: BP 120/70
[2017-06-10 06:39] VITALS: BP 124/70
--- NOTE | 2017-06-10 07:04 | PN- Housestaff ---
See Addendum Subjective Follow-up For: asthma exacerbation Subjective: complaining of headache, feeling significantly improved today still complaining of some chest tightness afebrile, typically triggered by cold thinks this may be related to vacuuming/ dust Review of Systems Constitutional: Reports: see HPI. Objective Last 24 Hrs of Vital Signs/I&O Vital Signs Date Time Temp Pulse Resp B/P B/P Pulse O2 O2 Flow FiO2 Mean Ox Delivery Rate 06/10 0858 96 Nasal 1.0L Cannula 06/10 0639 98.0 101 22 124/70 97 Nasal 2.0L Cannula 06/10 0000 97 Nasal 2.0L Cannula 06/09 2204 98.0 112 22 120/70 97 Nasal Cannula 06/09 2147 Nasal 2.0L Cannula 06/09 1727 98.1 112 22 124/70 98 Nasal 2.0L Cannula 06/09 1720 98 Nasal 2.0L Cannula 06/09 1647 98.2 103 20 127/65 99 Nasal 2.0L Cannula 06/09 1448 98.5 113 18 132/78 99 Nasal 2.0L Cannula 06/09 1345 99 Nasal 2.0L Cannula 06/09 1342 96 Nasal 4.0L Cannula 06/09 1327 98.1 143 16 144/76 99 Nasal 3.0L Cannula Intake & Output 06/10 1600 06/10 0800 06/10 0000 Intake Total 500 350 Output Total Balance 500 350 Intake, IV 20 Intake, Oral 480 350 Patient 73.936 kg Weight Weight Reported by Patient Measurement Method Physical Exam General Appearance: Alert, Oriented X3, Cooperative, No Acute Distress Cardiovascular: Regular Rate, Normal S1, Normal S2, No Murmurs Lungs: diminished breath sounds but clear to auscultation, no audible wheezing Abdomen: Normal Bowel Sounds, Soft, No Tenderness, No Masses Extremities: No Clubbing, No Cyanosis, No Edema, Normal Pulses Current Medications: Current Medications Sig/Radha Start time Last Medication Dose Route Stop Time Status Admin Acetaminophen 650 MG Q4P PRN 06/10 0845 AC 06/10 PO 0934 Albuterol Sulfate 3 ML BID 06/09 2200 AC 06/10 INH 0858 Albuterol Sulfate 3 ML Q4H PRN 06/09 1645 AC INH Albuterol Sulfate 18 ML ONCE ONE 06/09 1345 DC 06/09 INH 06/09 1346 1342 Atorvastatin Calcium 20 MG DAILY 06/10 1000 AC 06/10 PO 0935 Diltiazem HCl 120 MG DAILY 06/09 1606 AC 06/10 PO 0935 Enoxaparin Sodium 40 MG DAILY 06/10 1000 AC 06/10 SC 0934 Famotidine 20 MG DAILY 06/10 1000 AC PO Ferrous Sulfate 325 MG BID 06/09 2200 AC 06/10 PO 0935 Magnesium Sulfate 1 GM ONCE ONE 06/09 1345 DC 06/09 Dextrose/Water 100 ML IV 06/09 1744 1346 Methylprednisolone 40 MG Q8 06/09 2200 AC 06/10 IV 0554 Methylprednisolone 125 MG ONCE ONE 06/09 1345 DC 06/09 IV 06/09 1346 1346 Methylprednisolone 0 .STK-MED ONE 06/09 1337 DC .ROUTE Montelukast Sodium 10 MG DAILY 06/09 1608 AC 06/10 PO 0935 Omeprazole 20 MG DAILY AC 06/10 0700 AC 06/10 PO 0554 Topiramate 25 MG BID 06/09 2200 AC 06/10 PO 0935 Tramadol HCl 50 MG ONCE ONE 06/09 1815 DC 06/09 PO 06/09 1816 1805 Last 24 Hrs of Lab/Yoshi Results Last 24 Hrs of Labs/Mics: Laboratory Tests 06/10/17 0715: Anion Gap 12, Estimated GFR > 60, BUN/Creatinine Ratio 28.3 H 06/09/17 1351: Anion Gap 12, Estimated GFR > 60, BUN/Creatinine Ratio 14.4, Glucose 151 H, Calcium 9.0, Total Bilirubin 0.4, AST 13 L, ALT 46, Alkaline Phosphatase 59, Total Protein 7.0, Albumin 3.9, Globulin 3.1, Albumin/Globulin Ratio 1.3, Total Beta HCG NEGATIVE, CBC w Diff MAN DIFF ORDERED, RBC 5.40, MCV 60.7 L, MCH 18.3 L, MCHC 30.2 L, RDW 23.1 H, MPV 9.3, Gran % 54.3, Lymphocytes % 33.0, Monocytes % 7.7, Eosinophils % 4.8, Basophils % 0.2, Absolute Granulocytes 5.8, Absolute Lymphocytes 3.5 H, Absolute Monocytes 0.8 H, Absolute Eosinophils 0.5 , Absolute Basophils 0, Platelet Estimate VERIFIED BY SMEAR, Polychromasia 1+, Hypochromic-Microcytic 2+, Poikilocytosis 1+, Anisocytosis 1+, Microcytic Cells 2+, Ovalocytes 1+ Microbiology 06/09 1644 LOWER RESP: Respiratory Culture - COLB 06/09 1644 LOWER RESP: Gram Stain - COLB 06/09 1633 NASOPHARYN: Influenza Virus A & B Rapid Smear - COMP Assessment/Plan Assessment: 37 year old female with history of multiple hospital admissions because of asthma exacerbation presented with dyspnea not responsive to rescue medications at home. Asthma exacerbation: Never smoker, history of requiring NIPPV, never intubated Trend peak flow Continue IV solumedrol 40mg q8h, plan to taper tomorrow TRC evaluation Continue nebulized albuterol Continue montelukast, singular, symbicort Obtain sputum culture/flu screening Titrate supplemental oxygen to SpO2 > 92% Continue cardizem, avoid beta blockers because of airway reactivity Thallasemia: Continue iron Migraine: Continue topamax prophylaxis GERD: PO PPI and H2 manjit HLD: Continue statin therapy Heart healthy diet DVT ppx-lovenox 40mg subcutaneous daily Full code Problem List: 1. Wheezing 2. Respiratory failure 3. Dyspnea 4. Asthma exacerbation 5. Anemia Pain Ratin Pain Location: headache Pain Goal: Pain 4 or less Pain Plan: tylenol Tomorrow's Labs & Rationales: none
[2017-06-10 15:08] VITALS: BP 120/60
[2017-06-10 22:46] VITALS: BP 124/70
[2017-06-11 06:20] VITALS: BP 114/68
--- NOTE | 2017-06-11 07:02 | PN- Housestaff ---
Adrienne PEREZ,Jose 06/11/17 0702: Subjective Follow-up For: asthma exacerbation Subjective: patient reports feeling her breathing is significantly improved today still complaining of some mild chest tightness, no cough, afebrile feels well and requesting to be discharged home with a note for her abscence from work Review of Systems Constitutional: Reports: see HPI. Objective Last 24 Hrs of Vital Signs/I&O Vital Signs Date Time Temp Pulse Resp B/P B/P Pulse O2 O2 Flow FiO2 Mean Ox Delivery Rate 06/11 0620 98.1 67 18 114/68 97 Nasal 1.0L Cannula 06/11 0000 96 Nasal 1.0L Cannula 06/10 2246 98.3 90 19 124/70 96 Nasal Cannula 06/10 1904 99 Nasal 2.5L Cannula 06/10 1600 99 Nasal 2.0L Cannula 06/10 1508 98.5 98 18 120/60 99 06/10 0858 96 Nasal 1.0L Cannula 06/10 0800 99 Nasal 2.0L Cannula Intake & Output 06/11 0800 06/11 0000 06/10 1600 Intake Total 450 360 Output Total Balance 450 360 Intake, Oral 450 360 Number 0 Bowel Movements Physical Exam General Appearance: Alert, Oriented X3, Cooperative, No Acute Distress Cardiovascular: Regular Rate, Normal S1, Normal S2, No Murmurs Lungs: slightly limited air movement but no audible wheezing or rhonchi on auscultation Abdomen: Normal Bowel Sounds, Soft, No Tenderness, No Masses Extremities: No Clubbing, No Cyanosis, No Edema, Normal Pulses Current Medications: Current Medications Sig/Radha Start time Last Medication Dose Route Stop Time Status Admin Acetaminophen 650 MG Q4P PRN 06/10 0845 AC 06/10 PO 0934 Albuterol Sulfate 3 ML BID 06/09 2200 AC 06/11 INH 0949 Albuterol Sulfate 3 ML Q4H PRN 06/09 1645 AC INH Atorvastatin Calcium 20 MG DAILY 06/10 1000 AC 06/11 PO 0819 Budesonide/ 2 PUF BID 06/10 1022 AC 06/11 Formoterol Fumarate INH 0817 Diltiazem HCl 120 MG DAILY 06/09 1606 AC 06/11 PO 0819 Enoxaparin Sodium 40 MG DAILY 06/10 1000 AC 06/11 SC 0819 Famotidine 20 MG DAILY 06/10 1000 AC 02/20 PO 0819 Ferrous Sulfate 325 MG BID 06/09 2200 AC 06/11 PO 0819 Methylprednisolone 40 MG Q12 06/11 2200 CAN IV Methylprednisolone 40 MG ONCE ONE 06/11 1000 DC 06/11 IV 06/11 1001 1050 Methylprednisolone 40 MG Q8 06/09 2200 DC 06/11 IV 0611 Montelukast Sodium 10 MG DAILY 06/09 1608 AC 06/11 PO 0819 Omeprazole 20 MG DAILY AC 06/10 0700 AC 06/11 PO 0611 Tiotropium [place] 1 PUF DAILY 06/10 1022 AC 06/11 INH 0817 Topiramate 25 MG BID 06/09 2200 AC 06/11 PO 0819 Last 24 Hrs of Lab/Yoshi Results Last 24 Hrs of Labs/Mics: Laboratory Tests 06/11/17 07: Anion Gap 14, Estimated GFR > 60, BUN/Creatinine Ratio 31.4 H Assessment/Plan Assessment: 37 year old female with history of multiple hospital admissions because of asthma exacerbation presented with dyspnea not responsive to rescue medications at home. Asthma exacerbation: Never smoker, history of requiring NIPPV, never intubated Peak flow ~300L/min Received solumedrol 40mg this AM, 40mg x 1 dose Prednisone taper over ten days TRC evaluation Continue nebulized albuterol Continue montelukast, spiriva, and symbicort Obtain sputum culture/flu screening Titrate supplemental oxygen to SpO2 > 92% Continue cardizem, avoid beta blockers because of airway reactivity Thallasemia: Continue iron Migraine: Continue topamax prophylaxis GERD: PO PPI and H2 manjit HLD: Continue statin therapy Heart healthy diet DVT ppx-lovenox 40mg subcutaneous daily Full code Problem List: 1. Asthma 2. Reactive airway disease 3. GERD Pain Ratin Pain Location: n/a Pain Goal: Pain 4 or less Pain Plan: prn Tomorrow's Labs & Rationales: none, discharge Sabi Hansen MD 06/11/17 1100: Attending MD Review Statement Attending Statement Attending MD Statement: examined this patient, discuss w/resident/PA/AGRICULTURE SALES ACCOUNT MANAGER, agreed w/resident/PA/AGRICULTURE SALES ACCOUNT MANAGER, reviewed EMR data (avail) Attending Assessment/Plan: 37F PMH asthma, migraine, GERD, alpha thalassemia anemia presenting with status asthmaticus. Her and her family have just gotten over the flu, and she has had worsening SOB over the past 2 days, unable to catch her breath today with no help from rescue inhaler, required continuous nebulizer treatment in ED with persistent wheezing and hypoxia 90% on room air in ED. Improved today, no wheezing, on room air, comfortable. 1. Status asthamticus Plan - Stable for discharge home - Prednisone taper - Outpatient pulmonary follow up - Continue home medications
--- NOTE | 2017-06-11 07:21 | Patient Discharge Instructions ---
Discharge Instructions General Discharge Information You were seen/treated for: ASTHMA EXACERBATION Special Instructions: you are being discharged on a steroid taper. Please follow up with your primary care physician and bumper straightener within two weeks of discharge. Please return to the hospital for any worsening of your symptoms and difficulty breathing. Acute Coronary Syndrome Inclusion Criteria At DC or during hospital stay patient has or had the following: ACS DIAGNOSIS No Discharge Core Measures Meds if any: Prescribed or Continued at Discharge Meds if any: NOT Prescribed or Continued at Discharge Congestive Heart Failure Inclusion Criteria At DC or during hospital stay patient has or had the following: CHF DIAGNOSIS No Discharge Core Measures Meds if any: Prescribed or Continued at Discharge Meds if any: NOT Prescribed or Continued at Discharge Cerebrovascular accident Inclusion Criteria At DC or during hospital stay patient has or had the following: CVA/TIA Diagnosis No Discharge Core Measures Meds if any: Prescribed or Continued at Discharge Meds if any: NOT Prescribed or Continued at Discharge Venous thromboembolism Inclusion Criteria VTE Diagnosis No VTE Type NONE VTE Confirmed by (Test) NONE Discharge Core Measures - Per Current guidelines, there needs to be overlap - treatment for the first 5 days of Warfarin therapy. - If discharged on Warfarin prior to 5 days of - overlap therapy, the patient will need to be - assessed for post discharge needs including - *Post discharge parental anticoagulation - *Warfarin and/or parental anticoagulation education - *Follow up date to check INR post discharge At least 5 days overlap therapy as Inpatient No Meds if any: Prescribed or Continued at Discharge Note: Overlap Therapy is Warfarin and Anticoagulant Meds if any: NOT Prescribed or Continued at Discharge
[2017-06-11] MEDS ORDERED: PREDNISONE10 M2 PO ×2 (07:23→13:26)
--- NOTE | 2017-06-11 08:54 | Discharge Summary ---
Visit Information Visit Dates Admission Date: 06/09/17 Discharge Date: 06/11/17 Hospital Course Course Attending Physician: Sabi Hansen MD Primary Care Physician: Angely Harrington MD Hospital Course: 37 year old female with PMH of asthma, migraine, GERD, alpha thalassemia anemia presenting with status asthmaticus. She recently recovered from the flu. She was recently admitted because of asthma exacerbation. for the past 3 weeks she was improving until 2 days prior to this admission when she started to complain of SOB. Rescue inhaler did not improve her symptoms, required continuous nebulizer treatment in ED with persistent wheezing and hypoxia 90% on room air. CRX was negative for any acute pathology. The patient improved after IV steroid and nebs. She was admitted to general medicine floor. We continue IV solumedrol 40mg q8h for 48 hours then switched to oral taper. We continue nebulized albuterol, symbicort, and montelukast. For thallasemia, Migraine, GERD, and HLD, We continue iron, topamax prophylaxis, H2 manjit, and statin. Allergies: Coded Allergies: Iodinated Contrast- Oral and IV Dye (IODINATED CONTRAST MEDIA - ORAL AND) ( Severe, ANAPHYLAXIS 04/24/17) iodine (Severe, ANAPHYLAXIS 04/24/17) shellfish derived (Severe, ANAPHYLAXIS 04/24/17) Disposition Summary Disposition Principal Diagnosis: Asthma exacerbation Additional Diagnosis: GERD Discharge Disposition: home or self care Discharge Instructions General Discharge Information Code Status: Full Code Patient's Diet: regular diet Patient's Activity: As tolerated Follow-Up Instructions/Appts: follow up with overhead cleaner maintainer within one week. follow up with PCP within 1-2 weeks Medications at Discharge Discharge Medications: Stop taking the following medications: Metoprolol Tartrate (Metoprolol Tartrate) (Unknown Strength) TABLET Qty = 60 Continue taking these medications: Albuterol Sulfate (Proair Hfa) 90 MCG HFA.AER.AD 2 Puff Inhale through mouth as needed for ASTHMA Ibuprofen (Ibuprofen) 800 MG TABLET 1 Tablet ORAL as needed for PAIN/INFLAMMATION Comments: NOT GIVEN Montelukast Sodium (Montelukast Sodium) 10 MG TABLET 1 Tablet ORAL DAILY Qty = 90 Comments: Last Taken: 06/11/17 Time: 8 AM Budesonide/Formoterol Fumarate (Symbicort 160-4.5 Mcg Inhaler) 160 MCG-4.5 MCG/ ACTUATION HFA.AER.AD 2 Puff Inhale through mouth TWICE DAILY Comments: Last Taken: 06/11/17 Time: 8 AM Topiramate (Topiramate) 25 MG TABLET 1 Tablet ORAL TWICE DAILY Qty = 60 Comments: Last Taken: 06/11/17 Time: 8 AM Albuterol Sulfate (Albuterol Sulfate) 2.5 MG/3 ML (0.083 %) VIAL.NEB 1 Vial Inhale Solution EVERY 4 HOURS NEEDED as needed for ASTHMA Comments: Last Taken: 06/11/17 Time: 10 AM Atorvastatin Calcium (Atorvastatin Calcium) 20 MG TABLET 1 Tablet ORAL DAILY Qty = 30 Comments: Last Taken: 06/11/17 Time: 8 AM Epinephrine (Epinephrine) 0.3 MG/0.3 ML AUTO.INJCT 0.3 Milligram INTRAMUSC As Directed as needed for ALLERGIC REACTION Qty = 2 Instructions: . Comments: NOT GIVEN IN HOSPITAL Ferrous Sulfate (Ferrous Sulfate) 324 MG (65 MG IRON) TABLET.DR 1 Tablet ORAL TWICE DAILY Qty = 60 Instructions: . Comments: Last Taken: 06/11/17 Time: 8 AM Tiotropium [place] (Spiriva Respimat) (Unknown Strength) MIST.INHAL 2 PUFF Inhale through mouth DAILY Comments: Last Taken: 06/11/17 Time: 8 AM Metformin HCl (Metformin HCl ER) 500 MG TAB.ER.24H 1 Tablet ORAL DAILY Qty = 90 Comments: NOT GIVEN Diltiazem HCl (Dilt-XR) 120 MG CAP.ER.DEG 120 Milligram ORAL DAILY Comments: Last Taken: 06/11/17 Time: 8 AM Famotidine (Pepcid) 40 MG TABLET 1 Tablet ORAL DAILY Qty = 30 Start taking the following new medications: Prednisone (Prednisone) 10 MG TABLET 1 Tablet ORAL As Directed Qty = 20 No Refills Instructions: TAKE 4 TABS 40MG FOR 2 DAYS TAKE 3 TABS 30MG FOR 2 DAYS TAKE 2 TABS 20MG FOR 2 DAYS TAKE 1 TAB 10MG FOR 2 DAYS THEN STOP Comments: NOT GIVEN Copies To: Juany PEREZ,Angely De Los Santos
[2017-06-11] MEDS ORDERED: PEPCID40 M1 PO (10:56)
[2017-06-11 13:02] VITALS: BP 112/70
== END 2017-06-11 13:52 | DRG 141 ==
LOC: ERH 13:25 → ERHI 15:24 → 2NA 15:24 → ENRESERV 15:36 → ENTRNSPT 17:02 → 2NA 17:04 → EDTRNSPTSTS 17:05 → 2NA 17:18 → CMPTRNSPT 17:39 → ENPENDDIS 06-11 10:17 → ENTRNSPT 06-11 13:28 → EDTRNSPTSTS 06-11 13:46 → CMPTRNSPT 06-11 13:52 → 2NA 06-11 13:52
PROVIDERS: Emergency Medicine
DX: J45.902 Unspecified asthma with status asthmaticus (principal); D56.0 Alpha thalassemia; K21.9 Gastro-esophageal reflux disease without esophagitis; R09.02 Hypoxemia; G43.909 Migraine, unspecified, not intractable, without status migrainosus; E78.5 Hyperlipidemia, unspecified
CPT/HCPCS: 2NASP; 36592; 82436; 87070; 87804; 87804-59; 94644; 96374; 96375; 99291; J1650; J2920; J2930; J3490

== ENCOUNTER 2017-07-13 23:27 | Emergency (ER) | payer OTHER ==
[~2017-07-13] VITALS: Ht 160 cm; Wt 74.8 kg
[~2017-07-13 23:27] MED LIST changes: +DILT-XR120 M1 PO; +DILTIAZEM 24HR180 MG PO; +KETOROLAC TROME10 M1 PO; +METFORMIN HCL500 M4 PO; +METOPROLOL TART25 M1; +PEPCID40 M1 PO; +SPIRIVA RESPIMAT4 GM INH; +ZEBUTAL 50-3251 EACH PO; +ZOFRAN4 M2 PO
--- NOTE | 2017-07-13 23:31 | ED DYSPNEA/ASTHMA COMPLAINT ---
History of Present Illness General Chief Complaint: General Adult Stated Complaint: "ASTHMA, CP" Source: patient Exam Limitations: no limitations Vital Signs & Intake/Output Vital Signs & Intake/Output Vital Signs Date Time Temp Pulse Resp B/P B/P Pulse O2 O2 Flow FiO2 Mean Ox Delivery Rate 07/14 0200 96 16 116/78 97 Room Air Room Air 07/14 0008 97 Room Air Room Air 07/14 0007 97.6 110 16 120/81 97 Room Air 07/14 0003 96 Allergies Coded Allergies: Iodinated Contrast- Oral and IV Dye (IODINATED CONTRAST MEDIA - ORAL AND) ( Severe, ANAPHYLAXIS 04/24/17) iodine (Severe, ANAPHYLAXIS 04/24/17) shellfish derived (Severe, ANAPHYLAXIS 04/24/17) Reconcile Medications Albuterol Sulfate (Proair Hfa) 90 MCG HFA.AER.AD 2 PUF INH PRN ASTHMA ( Reported) Albuterol Sulfate 2.5 MG/3 ML (0.083 %) VIAL.NEB 1 Vial INH/NEDA Q4P PRN ASTHMA (Reported) Albuterol Sulfate (Proair Hfa) 90 MCG HFA.AER.AD 2 PUF INH Q4-6 PRN PRN ASTHMA Atorvastatin Calcium 20 MG TABLET 1 TAB PO DAILY CHOLESTEROL (Reported) Budesonide/Formoterol Fumarate (Symbicort 160-4.5 Mcg Inhaler) 160 MCG-4.5 MCG/ ACTUATION HFA.AER.AD 2 PUF INH BID BREATHING PROBLEMS (Reported) Butalb/Acetaminophen/Caffeine (Zebutal 50-325-40 MG Capsule) 50 MG-325 MG-40 MG CAPSULE 1 TAB PO TID PRN HEADACHE Diltiazem HCl (Dilt-XR) 120 MG CAP.ER.DEG 120 MG PO DAILY HEART RATE ( Reported) Epinephrine 0.3 MG/0.3 ML AUTO.INJCT 0.3 MG IM AD PRN ALLERGIC REACTION . Famotidine (Pepcid) 40 MG TABLET 1 TAB PO DAILY GERD (Reported) Ferrous Sulfate 324 MG (65 MG IRON) TABLET.DR 1 TAB PO BID anemia . Ibuprofen 800 MG TABLET 1 TAB PO PRN PAIN/INFLAMMATION (Reported) Ketorolac Tromethamine 10 MG TABLET 1 TAB PO TID PRN HEADACHE RECEIVED IM IN ER Metformin HCl (Metformin HCl ER) 500 MG TAB.ER.24H 1 TAB PO DAILY DM ( Reported) Methylprednisolone. (Medrol) 4 MG TAB.DS.PK 1 DP PO AD ASTHMA 6 on day 1 then reduce by one tablet daily until gone Montelukast Sodium 10 MG TABLET 1 TAB PO DAILY ALLERGIES (Reported) Ondansetron HCl (Zofran) 4 MG TABLET 1 TAB PO Q6-8P PRN NAUSEA Prednisone 10 MG TABLET 1 TAB PO AD TAPER TAKE 5 TABS 50MG FOR 3 DAYS TAKE 4 TABS 40MG FOR 3 DAYS TAKE 3 TABS 30MG FOR 3 DAYS TAKE 2 TAB 20MG FOR 3 DAYS TAKE 1 TAB 10MG FOR 3 DAYS THEN STOP Tiotropium [place] (Spiriva Respimat) (Unknown Strength) MIST.INHAL 2 PUFF INH DAILY ASTHMA (Reported) Topiramate 25 MG TABLET 1 TAB PO BID MIGRAINES (Reported) Triage Nurses Notes Reviewed? yes Onset: Gradual Duration: day(s): Timing: recent history Severity: moderate Activities at Onset: none Prior Episodes/Possible Cause: occasional episodes Associated Symptoms: cough, wheezing HPI: 37 yo woman h/o asthma, presents with cough, wheezing,dyspnea, not improving with albuterol inhalers. She notes that she finished a z-pack 2 days ago, which was also her last day of tapering steroids. She notes chest wall discomfort with coughing. She has no fever, chills, significant phlegm. She is otherwise well. Past History Travel History Traveled to [place] past 21 day No Medical History Any Pertinent Medical History? 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 No Review of Systems Review of Systems Constitutional: Reports: no symptoms. EENTM: Reports: no symptoms. Respiratory: Reports: no symptoms. Cardiovascular: Reports: no symptoms. GI: Reports: no symptoms. Genitourinary: Reports: no symptoms. Musculoskeletal: Reports: no symptoms. Skin: Reports: no symptoms. Neurological/Psychological: Reports: no symptoms. Hematologic/Endocrine: Reports: no symptoms. Immunologic/Allergic: Reports: no symptoms. All Other Systems: Reviewed and Negative Physical Exam Physical Exam General Appearance: well developed/nourished, mild distress Head: atraumatic, normal appearance Eyes: Bilateral: normal appearance. Ears, Nose, Throat: normal pharynx, normal ENT inspection Neck: normal inspection Respiratory: wheezing Cardiovascular: regular rate/rhythm Gastrointestinal: normal bowel sounds, soft, non-tender Extremities: normal inspection Neurologic/Psych: no motor/sensory deficits, awake, alert, oriented x 3 Skin: intact, normal color, warm/dry Core Measures ACS in differential dx? No CVA/TIA Diagnosis No Sepsis Present: No Sepsis Focused Exam Completed? No Progress Differential Diagnosis: asthma, bronchitis, COPD Plan of Care: Orders Procedure Date/time Status TROPONIN LEVEL 07/13 2329 Complete LIPASE 07/13 2329 Complete HEPATIC FUNCTION PANEL 07/13 2329 Complete HUMAN BETA HCG SCREEN 07/13 2329 Complete CBC WITHOUT DIFFERENTIAL 07/13 2329 Complete BASIC METABOLIC PANEL 07/13 2329 Complete AMYLASE 07/13 2329 Complete EKG 07/13 2328 Active Laboratory Tests 07/13/17 2352: Anion Gap 13, Estimated GFR > 60, BUN/Creatinine Ratio 31.7 H, Glucose 117 H, Calcium 9.3, Total Bilirubin 0.4, Direct Bilirubin 0.4, AST 8 L, ALT 29, Alkaline Phosphatase 60, Troponin I < 0.01, Total Protein 7.4, Albumin 4.1, Amylase 64, Lipase 121, Total Beta HCG NEGATIVE, CBC w Diff NO MAN DIFF REQ, RBC 6.04 H, MCV 68.6 L, MCH 20.9 L, MCHC 30.5 L, RDW 29.5 H, MPV 9.4, Gran % 67.4, Lymphocytes % 20.6, Monocytes % 8.8, Eosinophils % 2.7, Basophils % 0.5, Absolute Granulocytes 10.2 H, Absolute Lymphocytes 3.1, Absolute Monocytes 1.3 H, Absolute Eosinophils 0.4, Absolute Basophils 0.1 07/13/17 2330: D-Dimer High Sensitivty Cancelled Diagnostic Imaging: Viewed by Me: Radiology Read. Discussed w/RAD: Radiology Read. CXR Impression: PATIENT: PRIYA HERNDON PRESENT AGE: 37 PATIENT ACCOUNT NO: [id number] : 81 LOCATION: [facility] ORDERING PHYSICIAN: Benjy Junior MD SERVICE DATE: 07/14/17 EXAM TYPE: RAD - XRY-PORTABLE CHEST XRAY EXAMINATION: CHEST 1 VIEW CLINICAL INFORMATION: Dyspnea. COMPARISON: July 06, 2017. TECHNIQUE: An AP view of the chest is provided. FINDINGS: The cardiac silhouette is not enlarged. The mediastinal and hilar contours are unremarkable. There are neither pleural effusions nor pneumothoraces. There are no consolidations. The osseous structures are unremarkable. IMPRESSION: No evidence for acute disease. DICTATED BY: Chuy Pro MD DATE/TIME DICTATED:07/14/17156 [employer]LECT[employer]SEM[employer]ER:REECE DATE/TIME TRANSCRIBED:07/14/17156 CONFIDENTIAL, DO NOT COPY WITHOUT APPROPRIATE AUTHORIZATION. <Electronically signed in Other Vendor System> SIGNED BY: Chuy Pro MD 07/14/17200 Initial ED EKG: sinus tachycardia Departure Departure Disposition: HOME OR SELF CARE Condition: Stable Clinical Impression Primary Impression: Asthma exacerbation Referrals: Juany PEREZ,Angely De Los Santos (PCP/Family) Departure Forms: Customer Survey General Discharge Information Prescriptions: Current Visit Scripts Methylprednisolone. (Medrol) 1 DP PO AD #1 DP 6 on day 1 then reduce by one tablet daily until gone Albuterol Sulfate (Proair Hfa) 2 PUF INH Q4-6 PRN PRN ASTHMA #1 INHAL Ref 5 Comments 07/14/17, 3:09AM.....pt feeling better.... likely rebound bronchospasm from steroid discontinuation... discussed at length... gave medrol dose pack... 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 Critical Care Note Critical Care Note Critical Care Time: non-applicable
[2017-07-14 00:13] LABS: ABSOLUTE BASOPHIL COUNT 0.1 /CUMM (0.0-0.2); ABSOLUTE EOSINOPHIL COUNT 0.4 /CUMM (0.0-0.7); ABSOLUTE GRANULOCYTE CT 10.2 /CUMM (1.4-6.5); ABSOLUTE LYMPH COUNT 3.1 /CUMM (1.2-3.4); ABSOLUTE MONOCYTE COUNT 1.3 /CUMM (0.10-0.60); BASOPHIL % 0.5 % (0.0-2.0); EOSINOPHIL % 2.7 % (0-5); GRANULOCYTE % 67.4 % (42.2-75.2); HEMATOCRIT 41.4 % (37-47); MEAN CORPUSCULAR HGB 20.9 PG (27.0-31.0); MEAN CORPUSCULAR HGB CONC 30.5 G/DL (33.0-37.0); MEAN CORPUSCULAR VOLUME 68.6 FL (81.0-99.0); MEAN PLATELET VOLUME 9.4 FL (7.4-10.4); PLATELET COUNT 231 /CUMM (130-400); RBC DISTRIBUTION WIDTH 29.5 % (11.5-14.5); RED BLOOD CELL CT 6.04 /CUMM (4.20-5.40); WHITE BLOOD CELL COUNT 15.1 /CUMM (4.8-10.8)
[2017-07-14 02:00] VITALS: BP 116/78
--- NOTE | 2017-07-14 02:01 | RADIOLOGY REPORT ---
EXAMINATION: CHEST 1 VIEW CLINICAL INFORMATION: Dyspnea. COMPARISON: July 06, 2017. TECHNIQUE: An AP view of the chest is provided. FINDINGS: The cardiac silhouette is not enlarged. The mediastinal and hilar contours are unremarkable. There are neither pleural effusions nor pneumothoraces. There are no consolidations. The osseous structures are unremarkable. IMPRESSION: No evidence for acute disease.
[2017-07-14] MEDS ORDERED: MEDROL4 M2 PO (03:09)
[2017-07-14] MEDS ORDERED: PROAIR HFA8.5 GM INH (03:09)
== END 2017-07-14 03:21 ==
LOC: ERH 23:27
PROVIDERS: Pediatrics
DX: J45.901 Unspecified asthma with (acute) exacerbation (principal); R07.89 Other chest pain
CPT/HCPCS: 1263; 71045; 93005; 93010; 96374; 96375; J1885; J2930

== ENCOUNTER 2018-01-09 17:59 | Emergency (ER) | payer OTHER ==
[~2018-01-09 17:59] MED LIST changes: +CYCLOBENZAPRINE10 M1 PO; +DELTASONE20 MG PO; +GLUCOPHAGE1000 M1 PO; +KEFLEX500 M1 PO; +PERCOCET 5-3251 EACH PO; +PREDNISONE20 M1 PO; +PREDNISONE50 M1 PO; +VENTOLIN HFA18 GM INH; +[UNRECOGNIZED DRUG - OTHER] INH
[2018-01-09 18:29] LABS: ABSOLUTE BASOPHIL COUNT 0.1 /CUMM (0.0-0.2); ABSOLUTE EOSINOPHIL COUNT 0.2 /CUMM (0.0-0.7); ABSOLUTE GRANULOCYTE CT 6.1 /CUMM (1.4-6.5); ABSOLUTE LYMPH COUNT 2.3 /CUMM (1.2-3.4); ABSOLUTE MONOCYTE COUNT 0.8 /CUMM (0.10-0.60); BASOPHIL % 0.5 % (0.0-2.0); EOSINOPHIL % 2.5 % (0-5); GRANULOCYTE % 64.3 % (42.2-75.2); HEMATOCRIT 37.8 % (37-47); MEAN CORPUSCULAR HGB 21.2 PG (27.0-31.0); MEAN CORPUSCULAR HGB CONC 31.5 G/DL (33.0-37.0); MEAN CORPUSCULAR VOLUME 67.4 FL (81.0-99.0); MEAN PLATELET VOLUME 9.2 FL (7.4-10.4); PLATELET COUNT 210 /CUMM (130-400); RBC DISTRIBUTION WIDTH 16.9 % (11.5-14.5); RED BLOOD CELL CT 5.61 /CUMM (4.20-5.40); WHITE BLOOD CELL COUNT 9.5 /CUMM (4.8-10.8)
--- NOTE | 2018-01-09 19:32 | RADIOLOGY REPORT ---
EXAMINATION: XR CHEST CLINICAL INFORMATION: Chest pain. COMPARISON: None TECHNIQUE: 2 views of the chest were obtained. FINDINGS: No significant abnormality is noted involving the heart, lungs, mediastinum, bony thorax or soft tissues. IMPRESSION: Unremarkable chest examination.
--- NOTE | 2018-01-09 22:24 | ED CARDIAC/CP/PALPITATIONS ---
History of Present Illness General Chief Complaint: Chest Pain Stated Complaint: CHEST PAIN, DISCOMFORT L ARM AND BACK Source: patient, family, old records Exam Limitations: no limitations Vital Signs & Intake/Output Vital Signs & Intake/Output Vital Signs Date Time Temp Pulse Resp B/P B/P Pulse O2 O2 Flow FiO2 Mean Ox Delivery Rate 01/09 2302 97.8 102 18 135/64 98 Room Air 01/09 2201 99 01/09 2030 99 Room Air 01/09 2029 97.7 84 18 126/78 99 Room Air 01/09 1813 98.2 91 17 119/81 99 Room Air ED Intake and Output 01/10 0000 01/09 1200 Intake Total 1000 Output Total Balance 1000 Intake, IV 1000 Allergies Coded Allergies: Iodinated Contrast- Oral and IV Dye (IODINATED CONTRAST MEDIA - ORAL AND) ( Severe, ANAPHYLAXIS 04/24/17) iodine (Severe, ANAPHYLAXIS 04/24/17) shellfish derived (Severe, ANAPHYLAXIS 04/24/17) hydrocodone (HIVES 11/08/17) omalizumab (From XOLAIR) (ANAPHYLAXIS 11/08/17) Reconcile Medications Albuterol Sulfate 2.5 MG/3 ML (0.083 %) VIAL.NEB 1 Vial INH/NEDA Q4P PRN ASTHMA (Reported) Albuterol Sulfate (Proair Hfa) 90 MCG HFA.AER.AD 2 PUF INH Q4-6 PRN PRN ASTHMA Albuterol Sulfate (Ventolin Hfa) 90 MCG HFA.AER.AD 2 PUF INH Q4-6 PRN PRN WHEEZING Atorvastatin Calcium 20 MG TABLET 1 TAB PO DAILY CHOLESTEROL (Reported) Budesonide/Formoterol Fumarate (Symbicort 160-4.5 Mcg Inhaler) 160 MCG-4.5 MCG/ ACTUATION HFA.AER.AD 2 PUF INH BID BREATHING PROBLEMS (Reported) Butalb/Acetaminophen/Caffeine (Zebutal 50-325-40 MG Capsule) 50 MG-325 MG-40 MG CAPSULE 1 TAB PO TID PRN HEADACHE Cephalexin (Keflex) 500 MG CAPSULE 1 CAP PO TID ABX (Reported) Cyclobenzaprine HCl 10 MG TABLET 1 TAB PO TID PRN MUSCLE SPASM Diltiazem HCl (Dilt-XR) 120 MG CAP.ER.DEG 120 MG PO DAILY HEART RATE ( Reported) Epinephrine (Epipen 2-Cristobal) 0.3 MG/0.3 ML AUTO.INJCT 1 INJ IM X1 PRN SEVERE ALLERGIC REACTION Famotidine (Pepcid) 40 MG TABLET 1 TAB PO DAILY GERD (Reported) Ferrous Sulfate 324 MG (65 MG IRON) TABLET.DR 1 TAB PO BID anemia . Ibuprofen 800 MG TABLET 1 TAB PO PRN PAIN/INFLAMMATION (Reported) Ibuprofen 800 MG TABLET 1 TAB PO TID PRN pain Metformin HCl (Metformin HCl ER) 500 MG TAB.ER.24H 2 TAB PO BID DM (Reported) Montelukast Sodium 10 MG TABLET 1 TAB PO DAILY ALLERGIES (Reported) Oxycodone HCl/Acetaminophen (Percocet 5-325 MG Tablet) 5 MG-325 MG TABLET 1 TAB PO Q6H PRN PAIN (Reported) Oxycodone HCl/Acetaminophen (Percocet 5-325 MG Tablet) 5 MG-325 MG TABLET 1 TAB PO 4XDP PRN PAIN FOUR...[id number] Prednisone (Deltasone) 20 MG TABLET 2 TAB PO DAILY STEROID (Reported) Prednisone 20 MG TABLET 1 TAB PO BID asthma [SEEBRI] 1 PUFF INH BID ASTHMA (Reported) Topiramate 25 MG TABLET 1 TAB PO BID MIGRAINES (Reported) Triage Note: PT TO ED WITH C/O CONTINUED CHEST PRESSURE SINCE YESTERDAY. SEEN FOR SAME YESTERDAY, ELOPED WAITING ROOM, DID NOT WAIT FOR REPEAT EKG/TROPONIN. STATES FEELS NO BETTER. INTERMITTENT SOB, TAKING ASTHMA INHALERS WITH RELIEF. Triage Nurses Notes Reviewed? yes Onset: 2 days Duration: day(s):, constant, continues in ED Timing: recent history Quality/Severity: moderate, aching, tightness Location: central Radiation: shoulders, back Activities at Onset: rest Prior Chest Pain/Card Workup: non-cardiac Modifying Factors: Worsens With: exercise, movement. Nitro Today/Relief: no nitro taken today Aspirin Today: no aspirin today Associated Symptoms: shortness of breath LMP (ages 10-50): unknown : No Patient currently breastfeeds: No HPI: 2 days prior to admission patient complains of episodic chest tightness radiating to her back associated with shortness of breath. She denies fever chills nausea vomiting diarrhea abdominal pain headache dysuria rash bleeding. Past History Travel History Traveled to [place] past 21 day No Medical History Any Pertinent Medical History? 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 No Review of Systems Review of Systems Constitutional: Reports: no symptoms. EENTM: Reports: no symptoms. Respiratory: Reports: see HPI, short of breath. Cardiovascular: Reports: see HPI, chest pain. GI: Reports: no symptoms. Genitourinary: Reports: no symptoms. Musculoskeletal: Reports: no symptoms. Skin: Reports: no symptoms. Neurological/Psychological: Reports: no symptoms. Hematologic/Endocrine: Reports: no symptoms. Immunologic/Allergic: Reports: no symptoms. All Other Systems: Reviewed and Negative Physical Exam Physical Exam General Appearance: well developed/nourished, alert, awake, anxious, moderate distress, obese Head: atraumatic, normal appearance Eyes: Bilateral: normal appearance, PERRL, EOMI. Ears, Nose, Throat: normal pharynx, normal ENT inspection, hearing grossly normal Neck: normal inspection, supple, full range of motion, no midline tenderness Respiratory: chest non-tender, no respiratory distress, quiet respiration, decreased breath sounds, wheezing Cardiovascular: regular rate/rhythm, normal peripheral pulses, norml femoral pulses equa Peripheral Pulses: 4+ carotid (R), 4+ carotid (L) Gastrointestinal: normal bowel sounds, soft, non-tender, no organomegaly Back: normal inspection, normal range of motion, no vertebral tenderness Extremities: normal inspection, normal capillary refill, normal range of motion, no edema Neurologic/Psych: no motor/sensory deficits, awake, alert, oriented x 3, normal gait, normal mood/affect, battery vent plug inserter II-XII nml as tested Reflexes: 2+: bicep (R), bicep (L). Skin: intact, normal color, cyanosis Lymphatic: no anterior cervical jazmyne Core Measures ACS in differential dx? Yes No ASA d/t Medication Refused CVA/TIA Diagnosis No Sepsis Present: No Sepsis Focused Exam Completed? No Progress Differential Diagnosis: atrial fibrillation, CHF/pulm edema, costochondritis, musculoskeletal pain, pneumonia Plan of Care: Orders Procedure Date/time Status EKG 01/09 2119 Active HUMAN BETA HCG SCREEN 01/09 1815 Complete TROPONIN LEVEL 01/09 1807 Complete MAGNESIUM 01/09 1807 Complete COMPREHENSIVE METABOLIC PANEL 01/09 1807 Complete CBC WITHOUT DIFFERENTIAL 01/09 1807 Complete EKG 01/09 1807 Active Laboratory Tests 01/09/18 2121: Troponin I Cancelled 01/09/18 182: Total Beta HCG NEGATIVE 01/09/18 182: Anion Gap 11, Estimated GFR > 60, BUN/Creatinine Ratio 25.7 H, Glucose 121 H, Calcium 9.1, Magnesium 1.9, Total Bilirubin 0.2, AST 11 L, ALT 25, Alkaline Phosphatase 59, Troponin I < 0.01, Total Protein 7.3, Albumin 4.2, Globulin 3.1, Albumin/Globulin Ratio 1.4, CBC w Diff NO MAN DIFF REQ, RBC 5.61 H, MCV 67.4 L , MCH 21.2 L, MCHC 31.5 L, RDW 16.9 H, MPV 9.2, Gran % 64.3, Lymphocytes % 24.5, Monocytes % 8.2, Eosinophils % 2.5, Basophils % 0.5, Absolute Granulocytes 6.1, Absolute Lymphocytes 2.3, Absolute Monocytes 0.8 H, Absolute Eosinophils 0.2, Absolute Basophils 0.1 Diagnostic Imaging: Viewed by Me: Radiology Read. Discussed w/RAD: Radiology Read. CXR Impression: Unremarkable chest examination. Initial ED EKG: normal axis, normal intervals, normal p-waves, normal QRS complex, normal sinus rhythm, no ST T wave changes Prior EKG: unchanged Rhythm Strip: normal sinus rhythm Departure Departure Time of Disposition: 2350 Disposition: HOME OR SELF CARE Condition: Stable Clinical Impression Primary Impression: Asthma with acute exacerbation Secondary Impressions: Chest pain syndrome Referrals: Juany PEREZ,Angely De Los Santos (PCP/Family) Departure Forms: Customer Survey General Discharge Information RELEASE- WORK Prescriptions: Current Visit Scripts Prednisone 1 TAB PO BID #10 TAB Critical Care Note Critical Care Note Critical Care Time: non-applicable
[2018-01-09 23:02] VITALS: BP 135/64
[2018-01-09] MEDS ORDERED: PREDNISONE20 M1 PO (23:52)
[2018-01-10] MEDS ORDERED: BACLOFEN10 M1 PO (11:11)
[2018-01-10] MEDS ORDERED: ROPINIROLE HCL0.5 MG PO (11:14)
== END 2018-01-10 00:22 ==
LOC: ERH 17:59
PROVIDERS: Physician Assistant
DX: J45.901 Unspecified asthma with (acute) exacerbation (principal); R07.89 Other chest pain; G43.909 Migraine, unspecified, not intractable, without status migrainosus; K21.9 Gastro-esophageal reflux disease without esophagitis; D64.9 Anemia, unspecified
CPT/HCPCS: 1263; 1395; 71046; 93005; 93010; 96374; J2930

== ENCOUNTER 2018-01-10 10:43 | Emergency (ER) | payer OTHER ==
[~2018-01-10] VITALS: Ht 149.9 cm; Wt 80.7 kg
[2018-01-10] MEDS ORDERED: BACLOFEN10 M1 PO (11:11)
[2018-01-10] MEDS ORDERED: ROPINIROLE HCL0.5 MG PO (11:14)
[2018-01-10 11:59] LABS: ABSOLUTE BASOPHIL COUNT 0 /CUMM (0.0-0.2); ABSOLUTE EOSINOPHIL COUNT 0 /CUMM (0.0-0.7); ABSOLUTE GRANULOCYTE CT 12.9 /CUMM (1.4-6.5); ABSOLUTE LYMPH COUNT 0.7 /CUMM (1.2-3.4); ABSOLUTE MONOCYTE COUNT 0.3 /CUMM (0.10-0.60); BASOPHIL % 0 % (0.0-2.0); EOSINOPHIL % 0 % (0-5); GRANULOCYTE % 92.4 % (42.2-75.2); HEMATOCRIT 39.2 % (37-47); MEAN CORPUSCULAR HGB 21.2 PG (27.0-31.0); MEAN CORPUSCULAR VOLUME 68.3 FL (81.0-99.0); MEAN PLATELET VOLUME 9.6 FL (7.4-10.4); PLATELET COUNT 218 /CUMM (130-400); RBC DISTRIBUTION WIDTH 16.7 % (11.5-14.5); RED BLOOD CELL CT 5.73 /CUMM (4.20-5.40)
--- NOTE | 2018-01-10 12:01 | ED CARDIAC/CP/PALPITATIONS ---
History of Present Illness General Chief Complaint: Chest Pain Stated Complaint: CHEST PAIN Source: patient, old records Exam Limitations: no limitations Vital Signs & Intake/Output Vital Signs & Intake/Output Vital Signs Date Time Temp Pulse Resp B/P B/P Pulse O2 O2 Flow FiO2 Mean Ox Delivery Rate 01/10 1340 98.3 112 18 126/79 97 Room Air 01/10 1055 98.2 120 20 154/72 98 Room Air 01/10 1050 98 Room Air Allergies Coded Allergies: Iodinated Contrast- Oral and IV Dye (IODINATED CONTRAST MEDIA - ORAL AND) ( Severe, ANAPHYLAXIS 04/24/17) iodine (Severe, ANAPHYLAXIS 04/24/17) shellfish derived (Severe, ANAPHYLAXIS 04/24/17) hydrocodone (HIVES 11/08/17) omalizumab (From XOLAIR) (ANAPHYLAXIS 11/08/17) Reconcile Medications Albuterol Sulfate (Proair Hfa) 90 MCG HFA.AER.AD 2 PUF INH Q4-6 PRN PRN ASTHMA Atorvastatin Calcium 20 MG TABLET 1 TAB PO DAILY CHOLESTEROL (Reported) Baclofen 10 MG TABLET 1 TAB PO BID PAIN (Reported) Budesonide/Formoterol Fumarate (Symbicort 160-4.5 Mcg Inhaler) 160 MCG-4.5 MCG/ ACTUATION HFA.AER.AD 2 PUF INH BID BREATHING PROBLEMS (Reported) Diltiazem HCl (Dilt-XR) 120 MG CAP.ER.DEG 120 MG PO DAILY HEART RATE ( Reported) Famotidine (Pepcid) 40 MG TABLET 1 TAB PO DAILY GERD (Reported) Metformin HCl (Metformin HCl ER) 500 MG TAB.ER.24H 2 TAB PO BID DM (Reported) Montelukast Sodium 10 MG TABLET 1 TAB PO DAILY ALLERGIES (Reported) Oxycodone HCl/Acetaminophen (Percocet 5-325 MG Tablet) 5 MG-325 MG TABLET 1 TAB PO 4XDP PRN PAIN FOUR...[id number] Prednisone (Deltasone) 20 MG TABLET 2 TAB PO DAILY STEROID (Reported) Ropinirole HCl 0.5 MG TABLET 3 TAB PO QPM RESTLESS LEGS (Reported) [SEEBRI] 1 PUFF INH BID ASTHMA (Reported) Topiramate 25 MG TABLET 1 TAB PO BID MIGRAINES (Reported) Triage Note: PT BIBA FROM HOME C/O 10/29 "SHARP" CONSTATNT CHEST PAIN RADIATING TO L ARM AND DYSPNEA. PT SEEN AT THIS FACILITY FOR SAME ON 01/09/18. PT TREATED WITH STEROIDS AND NEB TX WITH RELIEF. PT DISCHARGED AND REPORTING RECURRING SYMTOMS THIS MORNING. PT SINUS TACH AT 140. LS CLEAR BILAT. Triage Nurses Notes Reviewed? yes : No Patient currently breastfeeds: No HPI: Patient is a 37 year old female with pmhx significant for asthma, sinus tachycardia, DM2, HTN, and hypercholesterol who was BIBA for evaluation of chest pain and dyspnea for 3 days. She describes the chest pain as sharp and tight which radiates to her left arm and the left side of her neck. She reports the pain and dyspnea is worse with any form of exertion and lying flat. She also reports numbness and tingling in her left arm. She reports her SOB is somewhat relieved by her inhaler but the chest pain is constant. Patient reports her symptoms are associated with palpitations, dizziness and chills. She has no history of CAD, PE, DVT or stroke. Of note, patient reports she was seen in [place] ED last night for similiar symptoms. She was given 2 nebulizer treatments and her symptoms resolved until this morning when she woke up with worsened CP and dyspnea. Patient reports she did not take her diltiazem this AM as and has not started her prednisone rx that she recieved yesterday. Past History Travel History Traveled to [place] past 21 day No Medical History Any Pertinent Medical History? see below for history Neurological: MIGRAINES EENT: NONE Cardiovascular: TACHYCARDIA CARDIAC CATH 2017 Respiratory: asthma Gastrointestinal: GERD Hepatic: NONE Renal: NONE Musculoskeletal: NONE Psychiatric: NONE Endocrine: NONE Blood Disorders: anemia Cancer(s): NONE CAFETERIA ASSISTANT/Reproductive: NONE History of MRSA: No History of VRE: No History of CDIFF: No Surgical History Surgical History: appendectomy, cholecystectomy, ((3 C-Sections)), tubal ligation Psychosocial History Who do you live with Patient and family Services at Home NONE What is your primary language Irish Tobacco Use: Never used Family History Family History, If Any: Relation not specified for: *No pertinent family history Hx Contributory? No Review of Systems Review of Systems Constitutional: Reports: no symptoms, chills. EENTM: Reports: no symptoms. Respiratory: Reports: no symptoms. Cardiovascular: Reports: no symptoms. GI: Reports: no symptoms. Genitourinary: Reports: no symptoms. Musculoskeletal: Reports: no symptoms, neck pain. Skin: Reports: no symptoms. Neurological/Psychological: Reports: no symptoms. Hematologic/Endocrine: Reports: no symptoms. Immunologic/Allergic: Reports: no symptoms. All Other Systems: Reviewed and Negative Physical Exam Physical Exam General Appearance: well developed/nourished, alert, awake, mild distress Head: atraumatic, normal appearance Eyes: Bilateral: normal appearance, EOMI. Ears, Nose, Throat: normal pharynx, normal ENT inspection, hearing grossly normal Neck: normal inspection, supple, full range of motion Respiratory: normal breath sounds, chest tenderness on palpation Cardiovascular: tachycardia Peripheral Pulses: 2+ carotid (R), 2+ carotid (L), 2+ radial (R), 2+ radial (L), 2+ tibialis posterior (R), 2+ tibialis posterior (L), 2+ dorsalis pedis (R), 2+ dorsalis pedis (L) Gastrointestinal: normal bowel sounds, soft, non-tender, no organomegaly Extremities: normal inspection, normal capillary refill Neurologic/Psych: awake, alert, oriented x 3 Skin: intact, normal color, warm/dry Lymphatic: no lymphadenopathy Comments: Patients chest pain is reproducible on palpation of ribs 3 and 4. Core Measures ACS in differential dx? No CVA/TIA Diagnosis No Sepsis Present: No Sepsis Focused Exam Completed? No Progress Differential Diagnosis: costochondritis, musculoskeletal pain, pneumonia, pneumothorax, pulmonary embolism, rib fracture Plan of Care: Orders Procedure Date/time Status TROPONIN LEVEL 01/10 1430 Complete EKG 01/10 1430 Active MAGNESIUM 01/10 1129 Complete HIGH SENSITIVITY CRP 01/10 1129 Complete URINE DRUGS OF ABUSE 01/10 1128 Complete D-DIMER 01/10 1128 Complete URINALYSIS 01/10 1110 Complete TROPONIN LEVEL 01/10 1110 Complete COMPREHENSIVE METABOLIC PANEL 01/10 1110 Complete CBC WITHOUT DIFFERENTIAL 01/10 1110 Complete EKG 01/10 1054 Active Laboratory Tests 01/10/18 1421: Troponin I < 0.01 01/10/18 1343: Urine Opiates Screen < 100, Methadone Screen < 40, Barbiturate Screen < 60, Ur Phencyclidine Scrn < 6.00, Amphetamines Screen < 100, U Benzodiazepines Scrn < 85, Urine Cocaine Screen < 50, Urine Cannabis Screen < 5.00, Urine Color YEL, Urine Clarity CLEAR, Urine pH 7.0, Ur Specific [place] 1.015, Urine Protein NEG, Urine Ketones NEG, Urine Nitrite NEG, Urine Bilirubin NEG, Urine Urobilinogen 0.2, Ur Leukocyte Esterase NEG, Ur Microscopic SEDIMENT EXAMINED, Urine RBC RARE , Urine WBC 1-3 H, Ur Epithelial Cells MOD H, Urine Bacteria MOD H, Urine Hemoglobin TRACE-INTACT, Urine Glucose 250 H 01/10/18 1129: Anion Gap 11, Estimated GFR > 60, BUN/Creatinine Ratio 20.0, Glucose 185 H, Calcium 9.4, Magnesium 1.9, Total Bilirubin 0.4, AST 13 L, ALT 29, Alkaline Phosphatase 61, Troponin I < 0.01, C-React Prot High Sens 1.4, Total Protein 7.7 , Albumin 4.3, Globulin 3.4, Albumin/Globulin Ratio 1.3, D-Dimer High Sensitivty 228, CBC w Diff MAN DIFF ORDERED, RBC 5.73 H, MCV 68.3 L, MCH 21.2 L, MCHC 31.0 L, RDW 16.7 H, MPV 9.6, Gran % 92.4 H, Lymphocytes % 5.2 L, Monocytes % 2.4, Eosinophils % 0, Basophils % 0, Absolute Granulocytes 12.9 H, Absolute Lymphocytes 0.7 L, Absolute Monocytes 0.3, Absolute Eosinophils 0, Absolute Basophils 0, Platelet Estimate VERIFIED BY SMEAR, Polychromasia 1+, Hypochromic- Microcytic 2+, Poikilocytosis 1+, Basophilic Stippling SLIGHT, Anisocytosis 1+, Microcytic Cells 2+, Ovalocytes 1+ 01/10/18 1128: Magnesium Cancelled, C-React Prot High Sens Cancelled Initial ED EKG: Sinus tachy cardia of 128. Normal [place]. Negative for ST segment deviation or t-wave inversion. Negative from prior ECG except for rate. No STEMI. Prior EKG: unchanged Repeat EKG: unchanged Comments: D-dimer negative, EKG without changes from prior, negative troponin, pain is not exacerbated with exertion. Pain is reproducible upon palpation under the left breast. Discussed with patient that it is a musculoskeletal chest pain. She is to continue taking her chronic pain medication as prescribed. Elevated white count without fever, patient received steroids for her asthma. Patient has a history of inappropriate tachycardia she takes diltiazem for, of which she did not take this morning. Medication given and heart return to appropriate sinus rate. Departure Departure Disposition: HOME OR SELF CARE Condition: Stable Clinical Impression Primary Impression: Musculoskeletal chest pain Referrals: Juany PEREZ,Angely De Los Santos (PCP/Family) Departure Forms: Customer Survey General Discharge Information Comments Please note that there might be incidental findings in your evaluation that are unrelated to the current emergency department visit. Please notify your primary care doctor about this emergency department visit in order to obtain and review all of the testing performed so that these incidental findings can be monitored as needed. If you had an x-ray performed, please understand that some fractures may not be seen on the initial set of x-rays. If your symptoms persist you might need a repeat set of x-rays to check for such a fracture. If you had a laceration evaluated, please understand that foreign bodies such as glass or wood may not be visible to the naked eye or on plain x-rays. If the wound becomes red, swollen, increasingly more painful or if there is any drainage from the wound, please have it reevaluated by a physician for the possibility of a retained foreign body. If you're unable to follow up as outlined in the discharge instructions please return to the emergency department. Critical Care Note Critical Care Note Critical Care Time: non-applicable
--- NOTE | 2018-01-10 13:00 | RADIOLOGY REPORT ---
EXAMINATION: XR CHEST CLINICAL INFORMATION: Chest pain. COMPARISON: Chest done on 01/09/2018. TECHNIQUE: 2 views of the chest were obtained. FINDINGS: Both lungs are symmetrically expanded, appear clear. The cardiomediastinal silhouette is within normal limit. There is no pleural effusion or pneumothorax present. The visualized upper abdomen is unremarkable. Mild multilevel degenerative spondylosis is seen in the spine. No significant change since 01/09/2018. IMPRESSION: No acute cardiopulmonary disease. No significant change since 01/09/2018.
[2018-01-10 15:27] VITALS: BP 127/76
== END 2018-01-10 15:42 ==
LOC: ERH 10:43
PROVIDERS: Physician Assistant Medical
DX: R07.89 Other chest pain (principal); R06.00 Dyspnea, unspecified; R20.0 Anesthesia of skin; R00.2 Palpitations; R42 Dizziness and giddiness; J45.909 Unspecified asthma, uncomplicated; I10 Essential (primary) hypertension
CPT/HCPCS: 71046; 80307; 81001; 81025; 93005; 93010